=== PATIENT | male | born 1990 | race African-American/Black ===

== ENCOUNTER 2017-03-21 12:15 | Inpatient (IN) | payer MEDICARE, OTHER ==
[~2017-03-21] VITALS: Ht 165.1 cm; Wt 63.8 kg
[~2017-03-21 12:15] MED LIST: ARIP400I IM; DIVA500T3 PO; SERO300T PO
[2017-03-21 12:16] VITALS: BP 166/95; PULSE 102; RESP 20; TEMP 99.4; O2SAT 100
[2017-03-21 12:56] LABS: BASOPHIL % 0.6 % (0.0-2.0); EOSINOPHIL # 0.1 TH/MM3 (0-0.4); EOSINOPHIL % 1.9 % (0.0-4.0); HEMATOCRIT 39.4 % (39.0-51.0); HEMOGLOBIN 13.5 GM/DL (13.0-17.0); LYMPH % 27.7 % (9.0-44.0); LYMPHOCYTE # 1.8 TH/MM3 (1.0-4.8); MEAN CELL VOLUME 86.8 FL (80.0-100.0); MEAN CORPUSCULAR HEMOGLOBIN 29.8 PG (27.0-34.0); MEAN CORPUSCULAR HGB CONC 34.3 % (32.0-36.0); MEAN PLATELET VOLUME 6.9 FL (7.0-11.0); MONO % 8.1 % (0.0-8.0); MONOCYTE # 0.5 TH/MM3 (0-0.9); NEUT % 61.7 % (16.0-70.0); PLATELET COUNT 261 TH/MM3 (150-450); RED BLOOD COUNT 4.53 MIL/MM3 (4.50-5.90); RED CELL DISTRIBUTION WIDTH 13.5 % (11.6-17.2); WHITE BLOOD COUNT 6.5 TH/MM3 (4.0-11.0)
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
[2017-03-21 13:15] LABS: ALBUMIN 2.8 GM/DL (3.4-5.0); AST (GOT) 23 U/L (15-37); BICARBONATE 28.9 MEQ/L (21.0-32.0); BLOOD UREA NITROGEN 8 MG/DL (7-18); CHLORIDE 105 MEQ/L (98-107); CREATININE 0.92 MG/DL (0.60-1.30); GLOMERULAR FILTRATION RATE 119 ML/MIN (>89); GLUCOSE,RANDOM 88 MG/DL (74-106); SODIUM (NA) 140 MEQ/L (136-145)
[2017-03-21 13:16] LABS: ALT (GPT) 18 U/L (12-78)
[2017-03-21 13:19] LABS: ALKALINE PHOSPHATASE 80 U/L (45-117); TOTAL BILIRUBIN ADULT 0.2 MG/DL (0.2-1.0); TOTAL PROTEIN 7.4 GM/DL (6.4-8.2)
[2017-03-21 13:22] LABS: ACETAMINOPHEN LESS THAN 2.0 MCG/ML (10.0-30.0)
[2017-03-21] MEDS ORDERED: IBUPROFEN 800 MG TAB PO ONE (13:30)
[2017-03-21] MEDS ORDERED: AMOXICILLIN/CLAVULANATE K 500 MG TAB PO ONE (13:30)
[2017-03-21 14:43] VITALS: BP 156/96; PULSE 74; RESP 18; TEMP 99.1; O2SAT 100
[2017-03-21 18:46] VITALS: BP 142/83; PULSE 74; RESP 18; O2SAT 98
[2017-03-21 22:00] VITALS: BP 130/59; PULSE 68; RESP 18; O2SAT 98
[2017-03-22 09:54] VITALS: BP 141/82; PULSE 77; RESP 18; TEMP 98.9; O2SAT 97
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
[2017-03-22] MEDS ORDERED: IBUPROFEN 800 MG TAB PO ONE (10:30)
[2017-03-22] MEDS ORDERED: MAGNESIUM HYDROXIDE SUSP 30 ML CUP PO PRN (12:00)
[2017-03-22] MEDS ORDERED: ALUMINUM/MAGNESIUM/SIMETH 30 ML CUP PO PRN (12:00)
[2017-03-22 12:48] VITALS: BP 144/93; PULSE 80; RESP 16; TEMP 98.4; O2SAT 99
[2017-03-23 05:34] VITALS: BP 137/75; PULSE 79; RESP 19; TEMP 98.4; O2SAT 98
[2017-03-23] MEDS: ACETAMINOPHEN 325 MG TAB PO PRN ×2 (09:27→18:51)
[2017-03-23 10:41] LABS: BICARBONATE 27.4 MEQ/L (21.0-32.0); BLOOD UREA NITROGEN 10 MG/DL (7-18); CALCIUM 9.2 MG/DL (8.5-10.1); CHLORIDE 102 MEQ/L (98-107); CREATININE 1.03 MG/DL (0.60-1.30); GLOMERULAR FILTRATION RATE 104 ML/MIN (>89); GLUCOSE,RANDOM 120 MG/DL (74-106); SODIUM (NA) 136 MEQ/L (136-145)
[2017-03-23 10:42] LABS: CHOLESTEROL 141 MG/DL (120-200)
[2017-03-23 10:44] LABS: CHOLESTEROL/ HDL RATIO 3.56 RATIO; HDL CHOLESTEROL 39.5 MG/DL (40.0-60.0); LDL CHOLESTEROL 88 MG/DL (0-99); TRIGLYCERIDES 68 MG/DL (42-150)
[2017-03-23] MEDS ORDERED: DIVALPROEX SODIUM E.R. 500 MG TAB PO SCH (13:00)
[2017-03-23] MEDS ORDERED: ARIPIPRAZOLE 400 MG IM SCH (13:00)
[2017-03-23] MEDS: REMOVE OLD PATCH T-DERMAL SCH (13:00)
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
[2017-03-23] MEDS: DIVALPROEX SODIUM E.R. 500 MG TAB PO SCH ×2 (15:15→20:07)
[2017-03-23] MEDS: NICOTINE 21 MG/24 HR PATCH T-DERMAL SCH (15:15)
[2017-03-23 15:22] LABS: HEMOGLOBIN A1C 5.9 % (4.3-6.0)
[2017-03-23 17:43] VITALS: BP 139/76; PULSE 80; RESP 18; TEMP 98.7; O2SAT 96
[2017-03-23] MEDS: QUEtiapine FUMARATE 300 MG TAB PO SCH (20:07)
[2017-03-24 06:00] VITALS: BP 118/69; PULSE 67; RESP 17; TEMP 98.2; O2SAT 100
[2017-03-24] MEDS: NICOTINE 21 MG/24 HR PATCH T-DERMAL SCH (09:00)
[2017-03-24] MEDS: REMOVE OLD PATCH T-DERMAL SCH (09:00)
[2017-03-24] MEDS: DIVALPROEX SODIUM E.R. 500 MG TAB PO SCH ×2 (09:43→20:41)
--- NOTE | 2017-03-24 15:27 | HHI.PYPN ---
Subjective Chief Complaint: patient noncompliant medication, wandering streets Mental Status Examination Appearance: Appropriate Consciousness: Alert Orientation: x4 Motor Activity: Normal gait Speech: Slow, Other (low tone and somewhat childlike) Language: Adequate Fund of Knowledge: Adequate Attention and Concentration: Other (appears distracted) Memory: Unremarkable (poor) Mood: Other (euthymic) Affect: Other (good range of motion intensity) Thought Process & Associations: Linear Thought Content: Thought blocking Hallucination Type: Auditory (denies to me) Delusion Type: Other (suspicious) Suicidal Ideation: No Suicidal Plan: No Suicidal Intention: No Homicidal Ideation: No Homicidal Plan: No Homicidal Intention: No Insight: Poor Judgment: Poor Results Vitals/IOs Vital Signs Date Time Temp Pulse Resp B/P (MAP) Pulse Ox O2 Delivery O2 Flow Rate FiO2 03/24/17 06:00 98.2 67 17 118/69 (85) 100 03/22/17 09:54 Room Air Assessment & Plan Problem List: (1) Marijuana abuse ICD Codes: F12.10 - Cannabis abuse, uncomplicated (2) Paranoid schizophrenia ICD Codes: F20.0 - Paranoid schizophrenia Status: Acute Assessment & Plan Estimated LOS: days Request HC Surrog/Guard Advoc?: No Chai De Luna DO Mar 24, 2017 15:27
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
[2017-03-24 17:42] VITALS: BP 133/84; PULSE 85; RESP 16; TEMP 98.6; O2SAT 99
[2017-03-24] MEDS: QUEtiapine FUMARATE 300 MG TAB PO SCH (20:41)
[2017-03-25 05:33] VITALS: BP 117/71; PULSE 73; RESP 15; TEMP 98.2; O2SAT 99
[2017-03-25] MEDS: REMOVE OLD PATCH T-DERMAL SCH (09:00)
[2017-03-25] MEDS: NICOTINE 21 MG/24 HR PATCH T-DERMAL SCH (09:00)
[2017-03-25] MEDS: ACETAMINOPHEN 325 MG TAB PO PRN (09:27)
[2017-03-25] MEDS: DIVALPROEX SODIUM E.R. 500 MG TAB PO SCH ×2 (09:27→20:43)
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
[2017-03-25 16:52] VITALS: BP 139/71; PULSE 99; RESP 18; TEMP 98.7; O2SAT 98
[2017-03-25] MEDS: QUEtiapine FUMARATE 200 MG TAB PO SCH (20:43)
[2017-03-26 06:02] VITALS: BP 130/71; PULSE 64; RESP 18; TEMP 97.9; O2SAT 100
[2017-03-26] MEDS: NICOTINE 21 MG/24 HR PATCH T-DERMAL SCH (08:52)
[2017-03-26] MEDS: DIVALPROEX SODIUM E.R. 500 MG TAB PO SCH ×2 (08:52→21:48)
[2017-03-26] MEDS: REMOVE OLD PATCH T-DERMAL SCH (08:53)
--- NOTE | 2017-03-26 10:11 | PD.TTN ---
Patient Problems 1. Discharge planning 2. Medication compliance 3. Knowledge deficit 4. Lack of coping skills Progress Toward Goals Provider Present: Dr. Ese Agustin Provider Input: Dr. Agustin's treatment team met to discuss patient's treatment plan, medication and discharge plan. Patient doing well. Patient presents calm, pleasant. Possible discharge today. Nurse(s) Input: Patient's nurse Dora reports patient has been no behavioral problems on unit. Patient is medication compliant, seclusive to room. Presents internally stimulated. Psychiatric Counselors Present: Shelbie Pike [facility] Psych Therapist Input: Patient seen in his room. Patient presents childlike, seclusive, pleasant, calm, affect appropriate. Patient's speech was clear and organized. Patient once discharged will return home with his mother. Patient denies suicidal and homicial ideation. Patient did not present internally stimulated or with any delusional content. Patient reports eating and sleeping well. Group Spec/RT/OT/KEARNEY Present: CHRISTEL Escobedo Group Spec/RT/OT/KEARNEY Input: Patient is unknown to KEARNEY at this time. Shelbie Pike [facility] Mar 26, 2017 10:11
--- NOTE | 2017-03-26 10:11 | PD.TTN ---
Patient Problems 1. Discharge planning 2. Medication compliance 3. Knowledge deficit 4. Lack of coping skills Progress Toward Goals Provider Present: Dr. Ese Agustin Provider Input: Dr. Agustin's treatment team met to discuss patient's treatment plan, medication and discharge plan. Patient doing well. Patient presents calm, pleasant. Possible discharge today. Nurse(s) Input: Patient's nurse Dora reports patient has been no behavioral problems on unit. Patient is medication compliant, seclusive to room. Presents internally stimulated. Psychiatric Counselors Present: Shelbie Pike [facility] Psych Therapist Input: Patient seen in his room. Patient presents childlike, seclusive, pleasant, calm, affect appropriate. Patient's speech was clear and organized. Patient once discharged will return home with his mother. Patient denies suicidal and homicial ideation. Patient did not present internally stimulated or with any delusional content. Patient reports eating and sleeping well. Group Spec/RT/OT/KEARNEY Present: CHRISTEL Escobedo Group Spec/RT/OT/KEARNEY Input: Patient is unknown to KEARNEY at this time. Shelbie Pike [facility] Mar 26, 2017 10:11
--- NOTE | 2017-03-26 10:11 | PD.TTN ---
Patient Problems 1. Discharge planning 2. Medication compliance 3. Knowledge deficit 4. Lack of coping skills Progress Toward Goals Provider Present: Dr. Ese Agustin Provider Input: Dr. Agustin's treatment team met to discuss patient's treatment plan, medication and discharge plan. Patient doing well. Patient presents calm, pleasant. Possible discharge today. Nurse(s) Input: Patient's nurse Dora reports patient has been no behavioral problems on unit. Patient is medication compliant, seclusive to room. Presents internally stimulated. Psychiatric Counselors Present: Shelbie Pike [facility] Psych Therapist Input: Patient seen in his room. Patient presents childlike, seclusive, pleasant, calm, affect appropriate. Patient's speech was clear and organized. Patient once discharged will return home with his mother. Patient denies suicidal and homicial ideation. Patient did not present internally stimulated or with any delusional content. Patient reports eating and sleeping well. Group Spec/RT/OT/KEARNEY Present: CHRISTEL Escobedo Group Spec/RT/OT/KEARNEY Input: Patient is unknown to KEARNEY at this time. Shelbie Pike [facility] Mar 26, 2017 10:11
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
[2017-03-26 18:08] VITALS: BP 135/78; PULSE 73; RESP 18; TEMP 98.4; O2SAT 97
[2017-03-26] MEDS: QUEtiapine FUMARATE 200 MG TAB PO SCH (21:46)
[2017-03-27 06:12] VITALS: BP 133/85; PULSE 65; RESP 16; TEMP 97.6; O2SAT 98
[2017-03-27] MEDS: DIVALPROEX SODIUM E.R. 500 MG TAB PO SCH (08:48)
[2017-03-27] MEDS: NICOTINE 21 MG/24 HR PATCH T-DERMAL SCH (09:00)
[2017-03-27] MEDS: REMOVE OLD PATCH T-DERMAL SCH (09:00)
[2017-03-27] MEDS ORDERED: ARIPIPRAZOLE IM (12:10)
[2017-03-27] MEDS ORDERED: SERO400T PO (12:10)
[2017-03-27] MEDS ORDERED: DEPA500T3 PO (12:10)
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
== END 2017-03-27 15:25 | disposition home or self-care (01) | DRG 885 ==
LOC: NEPD 12:15 → NEDA 03-22 11:28 → H260 03-22 12:30
PROVIDERS: ADMIT Psychiatry & Neurology Psychiatry; ATTEND Psychiatry & Neurology Psychiatry
DX: F20.0 Paranoid schizophrenia (principal); K50.90 Crohn's disease, unspecified, without complications; F79 Unspecified intellectual disabilities; F17.210 Nicotine dependence, cigarettes, uncomplicated; F12.10 Cannabis abuse, uncomplicated; M06.9 Rheumatoid arthritis, unspecified; Z91.14 Patient's other noncompliance with medication regimen; R68.84 Jaw pain
CPT/HCPCS: 80048; 80053; 80061; 80164; 80307; 83036; 85025

== ENCOUNTER 2017-08-27 13:51 | Inpatient (IN) | payer OTHER, MEDICAID, MEDICARE ==
[~2017-08-27] VITALS: Ht 154.9 cm; Wt 67.6 kg
[~2017-08-27 13:51] MED LIST changes: -ARIP400I IM; +ARIPIPRAZOLE IM; +DEPA500T3 PO; -DIVA500T3 PO; -SERO300T PO; +SERO400T PO
[2017-08-27 13:58] VITALS: BP 131/67; PULSE 130; RESP 20; TEMP 99.3; O2SAT 99
[2017-08-27] MEDS ORDERED: APRI0.372 PO (15:08)
[2017-08-27] MEDS ORDERED: ADAL1INJ SQ (15:08)
[2017-08-27 15:43] VITALS: BP 118/68; PULSE 103; RESP 18; O2SAT 100
[2017-08-27 15:46] LABS: AUTOMATED NEUTROPHIL # 7.2 TH/MM3 (1.8-7.7); BASOPHIL % 0.3 % (0.0-2.0); EOSINOPHIL # 0.1 TH/MM3 (0-0.4); EOSINOPHIL % 1.3 % (0.0-4.0); HEMATOCRIT 42.5 % (39.0-51.0); HEMOGLOBIN 14.1 GM/DL (13.0-17.0); LYMPH % 18.5 % (9.0-44.0); LYMPHOCYTE # 1.9 TH/MM3 (1.0-4.8); MEAN CELL VOLUME 85.1 FL (80.0-100.0); MEAN CORPUSCULAR HEMOGLOBIN 28.2 PG (27.0-34.0); MEAN CORPUSCULAR HGB CONC 33.1 % (32.0-36.0); MEAN PLATELET VOLUME 7.3 FL (7.0-11.0); MONOCYTE # 0.9 TH/MM3 (0-0.9); NEUT % 70.9 % (16.0-70.0); PLATELET COUNT 255 TH/MM3 (150-450); RED CELL DISTRIBUTION WIDTH 13.8 % (11.6-17.2); WHITE BLOOD COUNT 10.2 TH/MM3 (4.0-11.0)
[2017-08-27 16:08] LABS: ALBUMIN 3.2 GM/DL (3.4-5.0); AST (GOT) 114 U/L (15-37); BICARBONATE 28.7 MEQ/L (21.0-32.0); BLOOD UREA NITROGEN 12 MG/DL (7-18); CALCIUM 8.8 MG/DL (8.5-10.1); CHLORIDE 105 MEQ/L (98-107); CREATININE 1.06 MG/DL (0.60-1.30); GLOMERULAR FILTRATION RATE 101 ML/MIN (>89); GLUCOSE,RANDOM 73 MG/DL (74-106); SODIUM (NA) 142 MEQ/L (136-145)
[2017-08-27 16:19] LABS: ALKALINE PHOSPHATASE 123 U/L (45-117); ALT (GPT) 67 U/L (12-78); TOTAL BILIRUBIN ADULT 0.5 MG/DL (0.2-1.0); TOTAL PROTEIN 8.4 GM/DL (6.4-8.2)
--- NOTE | 2017-08-27 16:48 | PD ---
HPI Chief Complaint: Psychiatric Symptoms Time Seen by Provider: 16:48 Travel History International Travel<30 days: No Contact w/Intl Traveler<30days: No Traveled to known affect area: No History of Present Illness HPI 27-year-old -Tuval[place] male with history of bipolar disorder and mildred is brought in by his mother for psychiatric evaluation. Mother reports that he has not been taking his evening meds, only his morning meds, and then walking all day. Patient returns to home in the morning to take his morning meds and shower. Patient's mother thinks he has not slept in 3 weeks. Patient's mother states she has not been making sense for 3 weeks. She feels he is manic and needs to be admitted psychiatrically. The patient is unable to answer questions. He is voluntary. He is cooperative to go to J pod he has no obvious medical issues. No known drug allergies. PFSH Past Medical History ADHD: No Arthritis: Yes (Rheumatoid Arthritis) Autoimmune Disease: Yes (per hx..RA) Blood Disorders: No Anxiety: Yes Depression: Yes Cancer: No Cardiovascular Problems: No Chemotherapy: No COPD: No Cerebrovascular Accident: No Diabetes: No Diminished Hearing: No Endocrine: No Gastrointestinal Disorders: Yes (Crohns) GERD: No Genitourinary: No Headaches: No Hiatal Hernia: No Immune Disorder: Yes Implanted Vascular Access Dvce: No Kidney Stones: No Musculoskeletal: No Neurologic: No Psychiatric: No Reproductive: No Respiratory: No Integumentary: Yes Immunizations Current: Yes Migraines: No Radiation Therapy: No Renal Failure: No Schizophrenia: Yes Seizures: No Sickle Cell Disease: No Sleep Apnea: No Thyroid Disease: No Ulcer: Yes PNEUMOCCOCAL Vaccine (Year): 3 Past Surgical History Abdominal Surgery: No Appendectomy: No Cardiac Surgery: No Cholecystectomy: No Ear Surgery: No Endocrine Surgery: No Eye Surgery: No Genitourinary Surgery: No Gynecologic Surgery: No Oral Surgery: No Thoracic Surgery: No Other Surgery: Yes Social History Alcohol Use: No Tobacco Use: Yes (<ppd) Allergies-Medications (Allergen,Severity, Reaction): Coded Allergies: No Known Allergies (Verified Adverse Reaction, Unknown, 08/27/17) Reported Meds & Prescriptions Reported Meds & Active Scripts Active [(NF) (Aripiprazole ER Inj (Abilify Maintena ER Inj))] 400 Mg IM Q28D Seroquel (Quetiapine Fumarate) 400 Mg Tab 400 Mg PO HS Depakote ER (Divalproex Sodium) 500 Mg Juwan 500 Mg PO BID Reported Apriso (Mesalamine) 0.375 Gm Caper 1.5 Gm PO DAILY Humira 2-Pack Inj (Adalimumab 2-Pack Inj) 10 Mg/0.2 Ml Syr 10 Mg SQ Q14D Review of Systems ROS Limitations: Clinical Condition, Psychotic Physical Exam Exam Limitations: Clinical Condition, Psychotic Narrative GENERAL: Patient appears very tired on my exam. He is arousable but does not answer questions per SKIN: Warm and dry. Normal color. Normal turgor. No obvious signs of trauma. HEAD: Atraumatic. Normocephalic. EYES: Pupils equal and round. No scleral icterus. No injection or drainage. ENT: No nasal bleeding or discharge. Mucous membranes pink and moist. NECK: Trachea midline. Supple. CARDIOVASCULAR: Regular rate and rhythm. RESPIRATORY: No accessory muscle use. Clear to auscultation. Breath sounds equal bilaterally. GASTROINTESTINAL: Abdomen soft, non-tender, nondistended. Hepatic and splenic margins not palpable. MUSCULOSKELETAL: Extremities without clubbing, cyanosis, or edema. No obvious deformities. NEUROLOGICAL: Awake and alert. No obvious cranial nerve deficits. Motor grossly within normal limits. Five out of 5 muscle strength in the arms and legs. Normal speech. PSYCHIATRIC: Unable to determine Data Data Last Documented VS Vital Signs Date Time Temp Pulse Resp B/P (MAP) Pulse Ox O2 Delivery O2 Flow Rate FiO2 08/27/17 15:43 103 18 118/68 (85) 100 Room Air 08/27/17 13:58 99.3 Orders Orders Complete Blood Count With Diff (08/27/17 14:01) Comprehensive Metabolic Panel (08/27/17 14:01) Thyroid Stimulating Hormone (08/27/17 14:01) Psych Screen (08/27/17 14:01) Drug Screen, Random Urine (08/27/17 14:01) Alcohol (Ethanol) (08/27/17 14:01) Diet Regular Basic (08/27/17 Dinner) Labs Laboratory Tests Test 08/27/17 15:00 White Blood Count 10.2 TH/MM3 Red Blood Count 5.00 MIL/MM3 Hemoglobin 14.1 GM/DL Hematocrit 42.5 % Mean Corpuscular Volume 85.1 FL Mean Corpuscular Hemoglobin 28.2 PG Mean Corpuscular Hemoglobin Concent 33.1 % Red Cell Distribution Width 13.8 % Platelet Count 255 TH/MM3 Mean Platelet Volume 7.3 FL Neutrophils (%) (Auto) 70.9 % Lymphocytes (%) (Auto) 18.5 % Monocytes (%) (Auto) 9.0 % Eosinophils (%) (Auto) 1.3 % Basophils (%) (Auto) 0.3 % Neutrophils # (Auto) 7.2 TH/MM3 Lymphocytes # (Auto) 1.9 TH/MM3 Monocytes # (Auto) 0.9 TH/MM3 Eosinophils # (Auto) 0.1 TH/MM3 Basophils # (Auto) 0.0 TH/MM3 CBC Comment DIFF FINAL Differential Comment Blood Urea Nitrogen 12 MG/DL Creatinine 1.06 MG/DL Random Glucose 73 MG/DL Total Protein 8.4 GM/DL Albumin 3.2 GM/DL Calcium Level 8.8 MG/DL Alkaline Phosphatase 123 U/L Aspartate Amino Transf (AST/SGOT) 114 U/L Alanine Aminotransferase (ALT/SGPT) 67 U/L Total Bilirubin 0.5 MG/DL Sodium Level 142 MEQ/L Potassium Level 3.1 MEQ/L Chloride Level 105 MEQ/L Carbon Dioxide Level 28.7 MEQ/L Anion Gap 8 MEQ/L Estimat Glomerular Filtration Rate 101 ML/MIN Thyroid Stimulating Hormone 3rd Gen 1.870 uIU/ML Ethyl Alcohol Level LESS THAN 3 MG/DL MDM Medical Decision Making Medical Screen Exam Complete: Yes Emergency Medical Condition: Yes Differential Diagnosis Psychosis. Mildred. Need for Stewart act Narrative Course Stewart act is filled out and discussed with Dr. Espinosa. Psychiatric labs ordered per protocol. Patient will be medically cleared for psychiatric evaluation. Patient Instructions: General Instructions Condition: Stable Farshad Ferrari Aug 27, 2017 16:48
--- NOTE | 2017-08-27 18:02 | PD ---
Data Data Last Documented VS Vital Signs Date Time Temp Pulse Resp B/P (MAP) Pulse Ox O2 Delivery O2 Flow Rate FiO2 08/27/17 18:50 100 20 126/70 (88) 98 Room Air 08/27/17 13:58 99.3 Orders Orders Complete Blood Count With Diff (08/27/17 14:01) Comprehensive Metabolic Panel (08/27/17 14:01) Thyroid Stimulating Hormone (08/27/17 14:01) Psych Screen (08/27/17 14:01) Drug Screen, Random Urine (08/27/17 14:01) Alcohol (Ethanol) (08/27/17 14:01) Diet Regular Basic (08/27/17 Dinner) Nystatin Cream (Mycostatin Cream) (08/27/17 21:00) Potassium Chloride (Kcl) (08/27/17 18:30) Admit Order (Ed Use Only) (08/27/17 ) Admit To Inpatient Psych (08/27/17 ) Code Status (08/27/17 19:01) Vital Signs (Adult) TONEY.Q12H.E (08/27/17 19:01) Activity Oob Ad Theresa (08/27/17 19:01) Level Of Observation (Psych) (08/27/17 19:01) Acetaminophen (Tylenol) (08/27/17 19:15) Magnesium Hydroxide Liq (Milk Of Magnesi (08/27/17 19:15) Al-Mag Hy-Si 40-40-4 Mg/Ml Liq (Mag-Al P (08/27/17 19:15) Nicotine 21 Mg Patch.24 Hr (Habitrol 21 (08/27/17 19:15) Basic Metabolic Panel (Bmp) (08/28/17 06:00) Lipid Profile (08/28/17 06:00) Hemoglobin (Hgb) A1c (08/28/17 06:00) Remove Old Patch (08/28/17 09:00) Labs Laboratory Tests Test 08/27/17 15:00 White Blood Count 10.2 TH/MM3 Red Blood Count 5.00 MIL/MM3 Hemoglobin 14.1 GM/DL Hematocrit 42.5 % Mean Corpuscular Volume 85.1 FL Mean Corpuscular Hemoglobin 28.2 PG Mean Corpuscular Hemoglobin Concent 33.1 % Red Cell Distribution Width 13.8 % Platelet Count 255 TH/MM3 Mean Platelet Volume 7.3 FL Neutrophils (%) (Auto) 70.9 % Lymphocytes (%) (Auto) 18.5 % Monocytes (%) (Auto) 9.0 % Eosinophils (%) (Auto) 1.3 % Basophils (%) (Auto) 0.3 % Neutrophils # (Auto) 7.2 TH/MM3 Lymphocytes # (Auto) 1.9 TH/MM3 Monocytes # (Auto) 0.9 TH/MM3 Eosinophils # (Auto) 0.1 TH/MM3 Basophils # (Auto) 0.0 TH/MM3 CBC Comment DIFF FINAL Differential Comment Blood Urea Nitrogen 12 MG/DL Creatinine 1.06 MG/DL Random Glucose 73 MG/DL Total Protein 8.4 GM/DL Albumin 3.2 GM/DL Calcium Level 8.8 MG/DL Alkaline Phosphatase 123 U/L Aspartate Amino Transf (AST/SGOT) 114 U/L Alanine Aminotransferase (ALT/SGPT) 67 U/L Total Bilirubin 0.5 MG/DL Sodium Level 142 MEQ/L Potassium Level 3.1 MEQ/L Chloride Level 105 MEQ/L Carbon Dioxide Level 28.7 MEQ/L Anion Gap 8 MEQ/L Estimat Glomerular Filtration Rate 101 ML/MIN Thyroid Stimulating Hormone 3rd Gen 1.870 uIU/ML Ethyl Alcohol Level LESS THAN 3 MG/DL MDM Supervised Visit with [facility]: Yes Narrative Course Patient seen and examined by me, patient's only complaint to me is that he has a "hole down there which is leaking some fluid". Patient examined and does have a small rash on the medial aspect of both of his thighs consistent with a continual infection, however does not have significant cellulitis, inconsistent with herpes, inconsistent with syphilis. No discharge from the penis, scrotum and testes normal. Psychiatric exam however is quite bizarre tangential thought process, he has very little insight into why he is here. Denies suicidal or homicidal ideation , for instance it appeared as though he was interacting with unseen stimuli in the room. I do not think that he is in his proper faculty to make a decision to sign in or leave the hospital. I therefore placed him under a Stewart act secondary to his history of psychosis. He is medically cleared for psychiatric evaluation and disposition but he should have nystatin cream twice daily applied to his rash for the next 14 days per Patient Instructions: General Instructions Condition: Stable Dao Espinosa MD Aug 27, 2017 18:02
[2017-08-27] MEDS ORDERED: POTASSIUM CHLORIDE 20 MEQ CONTROLLED RELEASE TAB PO ONE (18:30)
[2017-08-27 18:50] VITALS: BP 126/70; PULSE 100; RESP 20; O2SAT 98
--- NOTE | 2017-08-27 19:01 | PD ---
History of Present Illness Chief Complaint: Schizophrenia Time Seen by Provider: 18:45 Travel History International Travel<30 Days: No Contact w/Intl Traveler<30days: No Known affected area: No Legal Status Legal Status: Stewart Act Stewart Act Signed By: Dr. Espinosa History of Present Illness: This is a 27-year-old, single, -Micron[place] male who presents to the ED voluntarily with his mother. Patient is known to this facility and has a long history of admissions for schizophrenia. Per patient's mother, he has "not slept for 3 weeks and is not making sense when he talks". She reports that he has been working nonstop for 3 weeks comes home in the morning takes his medications in the shower then starts walking again however, he has not been sleeping at night nor has he been taking his evening medications. Reviewed electronic medical records, labs, and discussed case with staff. Patient sleeping in his room and J pod at this time. Patient wakes to physical stimulus. He is lethargic, and oriented to self and place only. His speech is garbled, disorganized, and at times illogical. He has bilaterally injected sclera. He attempts to participate in the evaluation however, most of his answers are mumbled "yes ma'ams or no ma'ams". He denies having suicidal ideation, homicidal ideation, visual or auditory hallucinations. Does not appear to be delusional at this time. [facility] Past Medical History ADHD: No Arthritis: Yes (Rheumatoid Arthritis) Autoimmune Disease: Yes (per hx..RA) Blood Disorders: No Anxiety: Yes Depression: Yes Cancer: No Cardiovascular Problems: No Chemotherapy: No COPD: No Cerebrovascular Accident: No Diabetes: No Diminished Hearing: No Endocrine: No Gastrointestinal Disorders: Yes (Crohns) GERD: No Genitourinary: No Headaches: No Hiatal Hernia: No Immune Disorder: Yes Implanted Vascular Access Dvce: No Kidney Stones: No Musculoskeletal: No Neurologic: No Psychiatric: No Reproductive: No Respiratory: No Integumentary: Yes Immunizations Current: Yes Migraines: No Radiation Therapy: No Renal Failure: No Schizophrenia: Yes Seizures: No Sickle Cell Disease: No Sleep Apnea: No Thyroid Disease: No Ulcer: Yes PNEUMOCCOCAL Vaccine (Year): 3 Past Surgical History Abdominal Surgery: No Appendectomy: No Cardiac Surgery: No Cholecystectomy: No Ear Surgery: No Endocrine Surgery: No Eye Surgery: No Genitourinary Surgery: No Gynecologic Surgery: No Oral Surgery: No Thoracic Surgery: No Other Surgery: Yes Psychiatric History Psychiatric History Multiple inpatient admissions at this facility. Diagnosis of schizophrenia. Hx Psychiatric Treatment: MOTHER REPORTS HX OF SCHIZOPHRENIA. PT HAS LONG HISTORY AT [facility] AND IS FOLLOWED BY DR CHUNG History of Inpatient Treatment: Yes Social History Hx Alcohol Use: No Hx Tobacco Use: Yes (<ppd) Substance Use Type: Marijuana Other Substances Used: BLACK AND MILDS Hx of Substance Use Treatment: No Allergies-Medications (Allergen,Severity, Reaction): Coded Allergies: No Known Allergies (Verified Adverse Reaction, Unknown, 08/27/17) Reported Meds & Prescriptions Reported Meds & Active Scripts Active [(NF) (Aripiprazole ER Inj (Abilify Maintena ER Inj))] 400 Mg IM Q28D Seroquel (Quetiapine Fumarate) 400 Mg Tab 400 Mg PO HS Depakote ER (Divalproex Sodium) 500 Mg Juwan 500 Mg PO BID Reported Apriso (Mesalamine) 0.375 Gm Caper 1.5 Gm PO DAILY Humira 2-Pack Inj (Adalimumab 2-Pack Inj) 10 Mg/0.2 Ml Syr 10 Mg SQ Q14D Mental Status Examination Appearance: Disheveled Consciousness: Lethargic Orientation: Person, Place Motor Activity: Other (Lying on the bed) Speech: Incoherent (At times), Other (Garbled but some is clear) Language: Neologism Fund of Knowledge: Poor Attention and Concentration: Easily Distracted Memory: Impaired Mood: Appropriate Affect: Flat Thought Process & Associations: Disorganized Thought Content: Other (Unable to assess due to disorganization) Hallucination Type: None (Denies) Delusion Type: None Suicidal Ideation: No Suicidal Plan: No Suicidal Intention: No Homicidal Ideation: No Homicidal Plan: No Homicidal Intention: No Insight: Poor Judgment: Poor MDM Medical Decision Making Medical Record Reviewed: Yes Assessment/Plan This is a 27-year-old, single, male who is brought voluntarily to this facility by his mother due to not sleeping for 3 weeks and acting bizarre. Patient has an extensive history at this facility with a diagnosis of schizophrenia. His mother reports that he has been taking his morning medications however he has been missing his evening medications. He also has not been sleeping and has been walking nonstop throughout the evening for the past 3 weeks. Patient speech and thought processes are clearly disorganized and at this time he makes a poor historian. Patient likely present an eminent danger to himself if discharged, and for that reason a Stewart act was placed upon him by Dr. Espinosa. Patient will be admitted for further evaluation and treatment. Request HC Surrog/Guard Advoc?: Yes Orders Orders Complete Blood Count With Diff (08/27/17 14:01) Comprehensive Metabolic Panel (08/27/17 14:01) Thyroid Stimulating Hormone (08/27/17 14:01) Psych Screen (08/27/17 14:01) Drug Screen, Random Urine (08/27/17 14:01) Alcohol (Ethanol) (08/27/17 14:01) Diet Regular Basic (08/27/17 Dinner) Nystatin Cream (Mycostatin Cream) (08/27/17 21:00) Potassium Chloride (Kcl) (08/27/17 18:30) Results Vital Signs Date Time Temp Pulse Resp B/P (MAP) Pulse Ox O2 Delivery O2 Flow Rate FiO2 08/27/17 15:43 103 18 118/68 (85) 100 Room Air 08/27/17 13:58 99.3 130 20 131/67 (88) 99 Laboratory Tests Test 08/27/17 15:00 White Blood Count 10.2 Red Blood Count 5.00 Hemoglobin 14.1 Hematocrit 42.5 Mean Corpuscular Volume 85.1 Mean Corpuscular Hemoglobin 28.2 Mean Corpuscular Hemoglobin Concent 33.1 Red Cell Distribution Width 13.8 Platelet Count 255 Mean Platelet Volume 7.3 Neutrophils (%) (Auto) 70.9 Lymphocytes (%) (Auto) 18.5 Monocytes (%) (Auto) 9.0 Eosinophils (%) (Auto) 1.3 Basophils (%) (Auto) 0.3 Neutrophils # (Auto) 7.2 Lymphocytes # (Auto) 1.9 Monocytes # (Auto) 0.9 Eosinophils # (Auto) 0.1 Basophils # (Auto) 0.0 CBC Comment DIFF FINAL Differential Comment Blood Urea Nitrogen 12 Creatinine 1.06 Random Glucose 73 Total Protein 8.4 Albumin 3.2 Calcium Level 8.8 Alkaline Phosphatase 123 Aspartate Amino Transf (AST/SGOT) 114 Alanine Aminotransferase (ALT/SGPT) 67 Total Bilirubin 0.5 Sodium Level 142 Potassium Level 3.1 Chloride Level 105 Carbon Dioxide Level 28.7 Anion Gap 8 Estimat Glomerular Filtration Rate 101 Thyroid Stimulating Hormone 3rd Gen 1.870 Ethyl Alcohol Level LESS THAN 3 Diagnosis Primary Impression: Schizophrenia Admitting Information Admitting Physician Requests: Admit Patient Instructions: General Instructions Condition: Stable Kanchan Medrano Aug 27, 2017 19:01
[2017-08-27] MEDS ORDERED: ACETAMINOPHEN 325 MG TAB PO PRN (19:15)
[2017-08-27] MEDS: NICOTINE 21 MG/24 HR PATCH T-DERMAL SCH (19:15)
[2017-08-27] MEDS ORDERED: ALUMINUM/MAGNESIUM/SIMETH 30 ML CUP PO PRN (19:15)
[2017-08-27] MEDS ORDERED: MAGNESIUM HYDROXIDE SUSP 30 ML CUP PO PRN (19:15)
[2017-08-27 20:35] VITALS: BP 138/90; PULSE 98; RESP 18; TEMP 98.1; O2SAT 96
[2017-08-27] MEDS: NYSTATIN 100,000 UNIT/GM CREAM 15 GM TOPICAL SCH (21:00)
[2017-08-28 06:22] VITALS: BP 141/83; PULSE 83; RESP 18; TEMP 97.3; O2SAT 97
[2017-08-28] MEDS: NICOTINE 21 MG/24 HR PATCH T-DERMAL SCH (09:00)
[2017-08-28] MEDS: REMOVE OLD PATCH T-DERMAL SCH (09:00)
[2017-08-28] MEDS: NYSTATIN 100,000 UNIT/GM CREAM 15 GM TOPICAL SCH ×2 (09:00→21:00)
[2017-08-28 09:02] LABS: BICARBONATE 25.3 MEQ/L (21.0-32.0); BLOOD UREA NITROGEN 11 MG/DL (7-18); CALCIUM 8.6 MG/DL (8.5-10.1); CHLORIDE 106 MEQ/L (98-107); CREATININE 1.05 MG/DL (0.60-1.30); GLOMERULAR FILTRATION RATE 102 ML/MIN (>89); GLUCOSE,RANDOM 72 MG/DL (74-106); SODIUM (NA) 140 MEQ/L (136-145)
[2017-08-28 09:09] LABS: CHOLESTEROL 114 MG/DL (120-200); CHOLESTEROL/ HDL RATIO 2.84 RATIO; HDL CHOLESTEROL 40.1 MG/DL (40.0-60.0); LDL CHOLESTEROL 65 MG/DL (0-99); TRIGLYCERIDES 45 MG/DL (42-150)
--- NOTE | 2017-08-28 09:28 | HHI.HP ---
Provisional Diagnosis Admission Date Aug 27, 2017 at 19:04 [place] I. 1. Schizophrenia, undifferentiated type [place] II. 1. Intellectual disability, severity unclear. Certification of Person's Competence To Provide Express and Informed Consent I have personally examined Padma Pressley , a person being served at [facility] on, Aug 28, 2017 09:28. Express and informed consent means consent voluntarily given in writing, by a competent person, after sufficient explanation and disclosure of the subject matter involved to enable the person to make a knowing and willful decision without any element of force, fraud, deceit, duress, or other form of constraint or coercion. This person is 18 years of age or older, is not now known to be incompetent to consent to treatment with a guardian advocate, and does not have a health care surrogate or proxy currently making medical treatment decisions. I have found this person to be one of the following: [] Competent to provide express and informed consent, as defined above, for voluntary admission to this facility and is competent to provide express and informed consent for treatment. He/she has the consistent capacity to make well reasoned, willful, and knowing decisions concerning his or her medical or mental health treatment. The person fully and consistently understands the purpose of the admission for examination/placement and is fully capable of personally exercising all rights assured [place] [x] Incompetent to provide express and informed consent to voluntary admission, and this is incompetent to provide express and informed consent to treatment. The person must be transferred to involuntary status and a petition for a guardian advocate filed with the Circuit Court. [] Refusing to provide express and informed consent to voluntary admission but is competent to provide express and informed consent for treatment. The person must be discharged or transferred to involuntary status. Form shall be completed within 24 hours of a person's arrival at the receiving facility and filed in the clinical record of each person: 1. Admitted on a voluntary basis 2. Permitted to provide express and informed consent to his/her own treatment 3. Allowed to transfer from involuntary to voluntary status 4. Prior to permitting a person to consent to his or her own treatment after having been previously found incompetent to consent to treatment. History of Present Illness Capacity: Lacks Capacity Psych Chief Complaint: Psychosis HPI Mr. Pressley is 27-year-old male with a chart history of schizophrenia and intellectual disability who presented voluntarily, brought in by mother for psychiatric evaluation. According to the ED provider notes, mother reported " that he has not been taking his evening meds, only his morning meds, and then walking all day. Patient returns to home in the morning to take his morning meds and shower. Patient's mother thinks he has not slept in 3 weeks. Patient' s mother states she has not been making sense for 3 weeks." Patient was placed under the Stewart act by the ED provider. Patient was seen by the psychiatric nurse practitioner in the ED. Reviewing the electronic medical record, I note that the patient was admitted to the inpatient unit most recently under Dr. Agustin in February 2017, and it appears that the patient has followed on an outpatient basis with Dr. Andujar with the last clinic note I see being from May,, at which time patient was on Abilify Maintena, Seroquel at bedtime and Depakote twice a day. Patient seen and examined. Chart reviewed. Case discussed with nursing staff. Patient noted to be polite and no particular behavioral problem. Case discussed with counselor. On my examination today, the patient presents as fairly childlike with silly affect. He does appears somewhat internally stimulated although he denies AVH. Grooming and hygiene seem at least fair. He seems to have some poverty of thought and answers many questions with a repetitive "yes sir, yes sir" or "no sir, no sir." Mood is "good," sleep is "good," appetite is "good." He denies any suicidal or homicidal ideation. I can elicit no paranoia, no thought insertion or withdrawal, no ideas of reference. Remainder of the psychiatric ROS is negative. Patient complains of some mild jaw stiffness but has no overt signs of dystonia or other motor abnormality or deformity involving the jaw and seems to be using it freely and without obvious discomfort. He has no acute physical complaints. Past psychiatric history: Patient is likely an unreliable historian. He reports that he has a history of schizophrenia and follows with Dr. Andujar. He reports that he was last seen in the clinic in July of this year, although I see no note from that encounter, and he says that he received his long-acting injectable Abilify at that time. His most recent psychiatric admission was here at [place]. He denies a history of suicide attempts or violent behavior. Family history: The patient denies a family history of mental illness or suicide. Chemical dependency history: The patient denies any abuse of drugs or alcohol. Social history: The patient lives with his mother and mother's boyfriend. He is single with no children. He is high school educated and presently on SSI. He denies any or legal history. He denies any access to guns or firearms. He does endorse some anabaptism beliefs. He is noncommittal when I ask about a history of trauma but does not articulate any PTSD symptoms at this time. I did endeavor on two separate occasions to reach out to patient's mother at the number listed in the EMR. This number rings and then disconnects with no opportunity to leave a voicemail. Review of Systems ROS Limitations: Poor Historian Except as stated in HPI: all other systems reviewed are Neg Past Family Social History Coded Allergies: No Known Allergies (Verified Adverse Reaction, Unknown, 08/27/17) Past Medical History Patient denies any past medical history Active Scripts [(NF) (Aripiprazole ER Inj (Abilify Maintena ER Inj))] No Conflict Check, 400 MG IM Q28D, #1 10 Refills Prov:Rosendo Andujar MD 06/15/17 Quetiapine (Seroquel) 400 Mg Tab, 400 MG PO HS for health, #30 TAB 5 Refills Prov:Rosendo Andujar MD 04/13/17 Divalproex ER (Depakote ER) 500 Mg Juwan, 500 MG PO BID for health, #60 TAB 0 Refills Prov:Pro Agustin MD 03/27/17 Reported Medications Mesalamine ER 24 HR (Apriso) 0.375 Gm Caper, 1.5 GM PO DAILY for Ulcerative colitis, CAP 0 Refills 08/27/17 Adalimumab 2-Pack Inj (Humira 2-Pack Inj) 10 Mg/0.2 Ml Syr, 10 MG SQ Q14D, #1 KIT 0 Refills 08/27/17 Current Medications Medications (Trade) Dose Ordered Sig/Jaz Route Start Time Stop Time Status Last Admin (Mycostatin Cream) 1 applic Q12HR TOPICAL 08/27/17 21:00 (Tylenol) 650 mg Q4H PRN PO 4/2/18 19:15 (Milk Of Magnesia Liq) 30 ml DAILY PRN PO 08/27/17 19:15 (Mag-Al Plus Susp Liq) 30 ml Q6H PRN PO 08/27/17 19:15 (Habitrol 21 Mg Patch.24 Hr) 1 patch DAILY T-DERMAL 08/27/17 19:15 Miscellaneous Information 1 DAILY T-DERMAL 08/28/17 09:00 (Flu (Quadrivalent) Vaccine Inj) 0.5 ml ONCE ONCE IM 08/28/17 10:00 08/28/17 10:01 Patient's Strengths (min. 2) In a monitored setting. Verbally fluent. Physical Exam Physical examination completed by ED provider. On my examination today, the patient appears to be in no acute physical distress. No motor abnormalities noted. No tremor, no dystonia, no dyskinesia. Labs and vitals reviewed: Vital Signs Vital Signs Date Time Temp Pulse Resp B/P (MAP) Pulse Ox O2 Delivery O2 Flow Rate FiO2 08/28/17 06:22 97.3 83 18 141/83 (102) 97 08/27/17 18:50 Room Air Lab Results Item Value Date Time White Blood Count 10.2 TH/MM3 08/27/17 1500 Hemoglobin 14.1 GM/DL 08/27/17 1500 Platelet Count 255 TH/MM3 08/27/17 1500 Sodium Level 140 MEQ/L 08/28/17 0730 Potassium Level 3.3 MEQ/L L 08/28/17 0730 Chloride Level 106 MEQ/L 08/28/17 0730 Carbon Dioxide Level 25.3 MEQ/L 08/28/17 0730 Blood Urea Nitrogen 11 MG/DL 08/28/17 0730 Creatinine 1.05 MG/DL 08/28/17 0730 Estimat Glomerular Filtration Rate 102 ML/MIN 08/28/17 0730 Random Glucose 72 MG/DL L 08/28/17 0730 Aspartate Amino Transf (AST/SGOT) 114 U/L H 08/27/17 1500 Alanine Aminotransferase (ALT/SGPT) 67 U/L 08/27/17 1500 Alkaline Phosphatase 123 U/L H 08/27/17 1500 Thyroid Stimulating Hormone 3rd Gen 1.870 uIU/ML 08/27/17 1500 Valproic Acid (Depakene) Level 37 MCG/ML L 08/28/17 0730 Ethyl Alcohol Level LESS THAN 3 MG/DL 08/27/17 1500 Labs reviewed. Ongoing hypokalemia noted. Depakote level subtherapeutic. Mental Status Examination Appearance: Appropriate Consciousness: Alert Orientation: Person, Place (At least) Motor Activity: Other (No motor abnormalities noted) Speech: Unremarkable Language: Perseveration Fund of Knowledge: Inadequate Attention and Concentration: Easily Distracted Memory: Unremarkable Mood: Other ("Good") Affect: Euthymic (Childlike) Thought Process & Associations: Linear Thought Content: Other (Poverty of thought) Hallucination Type: Other (Denies AVH but appears somewhat internally stimulated) Delusion Type: None Suicidal Ideation: No Suicidal Plan: No Suicidal Intention: No Homicidal Ideation: No Homicidal Plan: No Homicidal Intention: No Insight: Poor Judgment: Poor Assessment & Plan Problem List: (1) Schizophrenia ICD Codes: F20.9 - Schizophrenia, unspecified Status: Acute (2) Intellectual disability ICD Codes: F79 - Unspecified intellectual disabilities Assessment & Plan 27-year-old male with psychiatric history as detailed above who is presently admitted to the inpatient psychiatric unit under a Stewart act. On my examination today, the patient exhibits some internal preoccupation and has a silly, childlike affect. Collateral obtained in the ED from patient's mother suggests patient is not at his baseline. I will admit the patient to the inpatient psychiatric unit for observation and stabilization. Admit inpatient. Involuntary status. I have completed first opinion. Consult for second opinion. Request healthcare surrogate and guardian advocate. I have not had success in reaching patient's mother and so psychotropics are on hold pending consent by a healthcare surrogate. I will replete potassium and recheck a potassium and magnesium level along with a set of LFTs in the morning. Also check a CK as patient is reported to have been walking around a good deal. Continue nystatin cream as ordered in the ED. Vitals every shift. Counselor to see and obtain collateral. Disposition planning. Estimated length of stay: 7-9 days. Discharge Planning Pending psychiatric stabilization Request HC Surrog/Guard Advoc?: Yes Problem Qualifiers (1) Schizophrenia: Qualified Codes: F20.3 - Undifferentiated schizophrenia Shine Pulido MD Aug 28, 2017 09:28
[2017-08-28] MEDS ORDERED: INFLUENZA VIRUS VACCINE (QUADRIVALENT) 0.5 ML SYR IM ONE (10:00)
[2017-08-28] MEDS ORDERED: POTASSIUM CHLORIDE 10 MEQ CONTROLLED RELEASE TAB PO ONE (11:30)
--- NOTE | 2017-08-28 13:50 | PD.PSY.CON ---
Provisional Diagnosis Admission Date Aug 27, 2017 at 19:04 [place] I. 1. Schizophrenia, undifferentiated type [place] II. 1. Intellectual disability, severity unclear. History of Present Illness Service Psychiatry Consult Requested By Psychiatry Reason for Consult Second opinion Primary Care Physician Damaso Sanches, DO HPI Mr. Pressley is 27-year-old male with a chart history of schizophrenia and intellectual disability who presented voluntarily, brought in by mother for psychiatric evaluation. According to the ED provider notes, mother reported "that he has not been taking his evening meds, only his morning meds, and then walking all day. Patient returns to home in the morning to take his morning meds and shower. Patient's mother thinks he has not slept in 3 weeks. Patient' s mother states she has not been making sense for 3 weeks." Patient was placed under the Stewart act by the ED provider. Patient was seen by the psychiatric nurse practitioner in the ED. Reviewing the electronic medical record, I note that the patient was admitted to the inpatient unit most recently under Dr. Agustin in February 2017, and it appears that the patient has followed on an outpatient basis with Dr. Andujar with the last clinic note I see being from May,, at which time patient was on Abilify Maintena, Seroquel at bedtime and Depakote twice a day.Patient seen and examined. Chart reviewed. Case discussed with nursing staff. Patient noted to be polite and no particular behavioral problem. Case discussed with counselor. On my examination today, the patient presents as fairly childlike with silly affect. He does appears somewhat internally stimulated although he denies AVH. Grooming and hygiene seem at least fair. He seems to have some poverty of thought and answers many questions with a repetitive "yes sir, yes sir" or "no sir, no sir." Mood is "good," sleep is "good," appetite is "good." He denies any suicidal or homicidal ideation. I can elicit no paranoia, no thought insertion or withdrawal, no ideas of reference. Remainder of the psychiatric ROS is negative. Patient complains of some mild jaw stiffness but has no overt signs of dystonia or other motor abnormality or deformity involving the jaw and seems to be using it freely and without obvious discomfort. He has no acute physical complaints. Review of Systems Except as stated in HPI: all other systems reviewed are Neg Past Family Social History Coded Allergies: No Known Allergies (Verified Adverse Reaction, Unknown, 08/27/17) Active Scripts [(NF) (Aripiprazole ER Inj (Abilify Maintena ER Inj))] No Conflict Check, 400 MG IM Q28D, #1 10 Refills Prov:Rosendo Andujar MD 06/15/17 Quetiapine (Seroquel) 400 Mg Tab, 400 MG PO HS for health, #30 TAB 5 Refills Prov:Rosendo Andujar MD 04/13/17 Divalproex ER (Depakote ER) 500 Mg Juwan, 500 MG PO BID for health, #60 TAB 0 Refills Prov:Pro Agustin MD 03/27/17 Reported Medications Mesalamine ER 24 HR (Apriso) 0.375 Gm Caper, 1.5 GM PO DAILY for Ulcerative colitis, CAP 0 Refills 08/27/17 Adalimumab 2-Pack Inj (Humira 2-Pack Inj) 10 Mg/0.2 Ml Syr, 10 MG SQ Q14D, #1 KIT 0 Refills 08/27/17 Current Medications Medications (Trade) Dose Ordered Sig/Jaz Route Start Time Stop Time Status Last Admin (Mycostatin Cream) 1 applic Q12HR TOPICAL 08/27/17 21:00 (Tylenol) 650 mg Q4H PRN PO 08/27/17 19:15 (Milk Of Magnesia Liq) 30 ml DAILY PRN PO 08/27/17 19:15 (Mag-Al Plus Susp Liq) 30 ml Q6H PRN PO 08/27/17 19:15 (Habitrol 21 Mg Patch.24 Hr) 1 patch DAILY T-DERMAL 08/27/17 19:15 Miscellaneous Information 1 DAILY T-DERMAL 08/28/17 09:00 Patient's Strengths (min. 2) In a monitored setting. Verbally fluent. Physical Exam Vital Signs Vital Signs Date Time Temp Pulse Resp B/P (MAP) Pulse Ox O2 Delivery O2 Flow Rate FiO2 08/28/17 06:22 97.3 83 18 141/83 (102) 97 08/27/17 18:50 Room Air Lab Results Test 08/27/17 15:00 08/28/17 07:30 White Blood Count 10.2 TH/MM3 Red Blood Count 5.00 MIL/MM3 Hemoglobin 14.1 GM/DL Hematocrit 42.5 % Mean Corpuscular Volume 85.1 FL Mean Corpuscular Hemoglobin 28.2 PG Mean Corpuscular Hemoglobin Concent 33.1 % Red Cell Distribution Width 13.8 % Platelet Count 255 TH/MM3 Mean Platelet Volume 7.3 FL Neutrophils (%) (Auto) 70.9 % Lymphocytes (%) (Auto) 18.5 % Monocytes (%) (Auto) 9.0 % Eosinophils (%) (Auto) 1.3 % Basophils (%) (Auto) 0.3 % Neutrophils # (Auto) 7.2 TH/MM3 Lymphocytes # (Auto) 1.9 TH/MM3 Monocytes # (Auto) 0.9 TH/MM3 Eosinophils # (Auto) 0.1 TH/MM3 Basophils # (Auto) 0.0 TH/MM3 CBC Comment DIFF FINAL Differential Comment Blood Urea Nitrogen 12 MG/DL 11 MG/DL Creatinine 1.06 MG/DL 1.05 MG/DL Random Glucose 73 MG/DL 72 MG/DL Total Protein 8.4 GM/DL Albumin 3.2 GM/DL Calcium Level 8.8 MG/DL 8.6 MG/DL Alkaline Phosphatase 123 U/L Aspartate Amino Transf (AST/SGOT) 114 U/L Alanine Aminotransferase (ALT/SGPT) 67 U/L Total Bilirubin 0.5 MG/DL Sodium Level 142 MEQ/L 140 MEQ/L Potassium Level 3.1 MEQ/L 3.3 MEQ/L Chloride Level 105 MEQ/L 106 MEQ/L Carbon Dioxide Level 28.7 MEQ/L 25.3 MEQ/L Anion Gap 8 MEQ/L 9 MEQ/L Estimat Glomerular Filtration Rate 101 ML/MIN 102 ML/MIN Thyroid Stimulating Hormone 3rd Gen 1.870 uIU/ML Ethyl Alcohol Level LESS THAN 3 MG/DL Triglycerides Level 45 MG/DL Cholesterol Level 114 MG/DL LDL Cholesterol 65 MG/DL HDL Cholesterol 40.1 MG/DL Cholesterol/HDL Ratio 2.84 RATIO Valproic Acid (Depakene) Level 37 MCG/ML Mental Status Examination Appearance: Appropriate Consciousness: Alert Orientation: Person, Place (At least) Motor Activity: Other (No motor abnormalities noted) Speech: Unremarkable Language: Perseveration Fund of Knowledge: Inadequate Attention and Concentration: Easily Distracted Memory: Unremarkable Mood: Other ("Good") Affect: Euthymic (Childlike) Thought Process & Associations: Linear Thought Content: Other (Poverty of thought) Hallucination Type: Other (Denies AVH but appears somewhat internally stimulated) Delusion Type: None Suicidal Ideation: No Suicidal Plan: No Suicidal Intention: No Homicidal Ideation: No Homicidal Plan: No Homicidal Intention: No Insight: Poor Judgment: Poor Assessment & Plan Problem List: (1) Schizophrenia ICD Codes: F20.9 - Schizophrenia, unspecified Status: Acute Assessment & Plan: I have seen and examined this patient, I agree and concur with Dr. Pulido assessment and plan. (2) Intellectual disability ICD Codes: F79 - Unspecified intellectual disabilities Assessment & Plan Estimated LOS: days Request HC Surrog/Guard Advoc?: Yes Problem Qualifiers (1) Schizophrenia: Qualified Codes: F20.3 - Undifferentiated schizophrenia Brendan Hurd MD Aug 28, 2017 13:50
[2017-08-28 18:28] VITALS: BP 136/64; PULSE 82; RESP 17; TEMP 98.6; O2SAT 97
[2017-08-28 19:01] LABS: AUTOMATED NEUTROPHIL # 10.9 TH/MM3 (1.8-7.7); BASOPHIL % 0.1 % (0.0-2.0); EOSINOPHIL # 0.1 TH/MM3 (0-0.4); EOSINOPHIL % 0.7 % (0.0-4.0); HEMATOCRIT 41.8 % (39.0-51.0); HEMOGLOBIN 13.7 GM/DL (13.0-17.0); LYMPH % 10.6 % (9.0-44.0); LYMPHOCYTE # 1.4 TH/MM3 (1.0-4.8); MEAN CELL VOLUME 85.8 FL (80.0-100.0); MEAN CORPUSCULAR HEMOGLOBIN 28.2 PG (27.0-34.0); MEAN CORPUSCULAR HGB CONC 32.9 % (32.0-36.0); MEAN PLATELET VOLUME 7.2 FL (7.0-11.0); MONO % 7.2 % (0.0-8.0); NEUT % 81.4 % (16.0-70.0); PLATELET COUNT 250 TH/MM3 (150-450); RED BLOOD COUNT 4.87 MIL/MM3 (4.50-5.90); RED CELL DISTRIBUTION WIDTH 13.5 % (11.6-17.2); WHITE BLOOD COUNT 13.3 TH/MM3 (4.0-11.0)
--- NOTE | 2017-08-28 19:38 | RADRPT ---
EXAM DATE/TIME: 08/28/2017 18:40 [place] COMPARISON: No previous studies available for comparison. INDICATIONS : Foreign body. Abdominal pain. MEDICAL HISTORY : None. SURGICAL HISTORY : None. ENCOUNTER: Initial ACUITY: 1 day PAIN SCORE: 0/10 LOCATION: Bilateral abdomen FINDINGS: Supine view of the abdomen was performed. The abdominal bowel gas pattern is normal. No abnormal ma sses, calcifications, or organomegaly is seen. The osseous structures are unremarkable. CONCLUSION: 1. No acute findings. Abdullahi Roberts MD on August 28, 2017 at 19:34 Board Certified Radiologist. This report was verified electronically.
[2017-08-28] MEDS ORDERED: diphenhydrAMINE HCL 50 MG CAP PO ONE (20:45)
[2017-08-29 05:48] VITALS: BP 134/69; PULSE 79; RESP 18; TEMP 98.2; O2SAT 96
[2017-08-29 07:07] LABS: ALBUMIN 2.7 GM/DL (3.4-5.0); ALT (GPT) 50 U/L (12-78); AST (GOT) 50 U/L (15-37); BICARBONATE 25.7 MEQ/L (21.0-32.0); BLOOD UREA NITROGEN 9 MG/DL (7-18); CALCIUM 8.5 MG/DL (8.5-10.1); CHLORIDE 108 MEQ/L (98-107); CREATININE 1.06 MG/DL (0.60-1.30); GLOMERULAR FILTRATION RATE 101 ML/MIN (>89); GLUCOSE,RANDOM 127 MG/DL (74-106); MAGNESIUM 1.7 MG/DL (1.5-2.5); SODIUM (NA) 140 MEQ/L (136-145)
[2017-08-29 07:21] LABS: ALKALINE PHOSPHATASE 119 U/L (45-117); TOTAL BILIRUBIN ADULT 0.3 MG/DL (0.2-1.0); TOTAL PROTEIN 7.9 GM/DL (6.4-8.2)
[2017-08-29] MEDS: REMOVE OLD PATCH T-DERMAL SCH (09:00)
[2017-08-29] MEDS: NYSTATIN 100,000 UNIT/GM CREAM 15 GM TOPICAL SCH ×2 (09:00→21:00)
[2017-08-29] MEDS: NICOTINE 21 MG/24 HR PATCH T-DERMAL SCH (09:00)
--- NOTE | 2017-08-29 11:29 | HHI.PYPN ---
Subjective Chief Complaint: Psychosis Remarks Patient seen and examined with nurse. Chart reviewed. Case discussed with nursing staff. I was called overnight as the physician customer operations intern as patient produced a small plastic object, which he told nurse he had removed from his rectum. I ordered KUB, GI consult, CBC, 1:1. KUB did not reveal any foreign bodies. On my exam today, patient now blandly denies removing object from rectum. He denies that there are any other objects in his rectum. He remains quite childlike. He is presently calm. He denies SI/HI/AVH. No physical complaints. I once again endeavored to reach patient's mother at number listed in EMR, but the number rang until disconnecting. I asked patient if he had other contact information, but he only has the same number I do and says that he has not had any success reaching mother either. Review of Systems ROS Limitations: Poor Historian Except as stated in HPI: all other systems reviewed are Neg Mental Status Examination Appearance: Appropriate Consciousness: Alert Orientation: Person, Place (At least) Motor Activity: Other (no abnormal motor movements noted) Speech: Unremarkable Language: Perseveration Fund of Knowledge: Inadequate Attention and Concentration: Easily Distracted Memory: Unremarkable Mood: Other (calm) Affect: Euthymic (quite childlike) Thought Process & Associations: Linear Thought Content: Other (ongoing poverty of thought) Hallucination Type: None (denies AVH) Delusion Type: None Suicidal Ideation: No Suicidal Plan: No Suicidal Intention: No Homicidal Ideation: No Homicidal Plan: No Homicidal Intention: No Insight: Poor Judgment: Poor Results Labs Test 08/28/17 18:39 08/29/17 06:18 White Blood Count 13.3 TH/MM3 Red Blood Count 4.87 MIL/MM3 Hemoglobin 13.7 GM/DL Hematocrit 41.8 % Mean Corpuscular Volume 85.8 FL Mean Corpuscular Hemoglobin 28.2 PG Mean Corpuscular Hemoglobin Concent 32.9 % Red Cell Distribution Width 13.5 % Platelet Count 250 TH/MM3 Mean Platelet Volume 7.2 FL Neutrophils (%) (Auto) 81.4 % Lymphocytes (%) (Auto) 10.6 % Monocytes (%) (Auto) 7.2 % Eosinophils (%) (Auto) 0.7 % Basophils (%) (Auto) 0.1 % Neutrophils # (Auto) 10.9 TH/MM3 Lymphocytes # (Auto) 1.4 TH/MM3 Monocytes # (Auto) 1.0 TH/MM3 Eosinophils # (Auto) 0.1 TH/MM3 Basophils # (Auto) 0.0 TH/MM3 CBC Comment DIFF FINAL Differential Comment Blood Urea Nitrogen 9 MG/DL Creatinine 1.06 MG/DL Random Glucose 127 MG/DL Total Protein 7.9 GM/DL Albumin 2.7 GM/DL Calcium Level 8.5 MG/DL Magnesium Level 1.7 MG/DL Alkaline Phosphatase 119 U/L Aspartate Amino Transf (AST/SGOT) 50 U/L Alanine Aminotransferase (ALT/SGPT) 50 U/L Total Bilirubin 0.3 MG/DL Sodium Level 140 MEQ/L Potassium Level 3.1 MEQ/L Chloride Level 108 MEQ/L Carbon Dioxide Level 25.7 MEQ/L Anion Gap 6 MEQ/L Estimat Glomerular Filtration Rate 101 ML/MIN Total Creatine Kinase 1046 U/L Creatine Kinase MB 8.4 NG/ML Creatine Kinase MB % 0.8 % Labs reviewed. Mild leukocytosis without obvious signs or symptoms of infection. Ongoing hypokalemia. Magnesium borderline low. CK elevated. Vitals/IOs Vital Signs Date Time Temp Pulse Resp B/P (MAP) Pulse Ox O2 Delivery O2 Flow Rate FiO2 08/29/17 05:48 98.2 79 18 134/69 (90) 96 08/27/17 18:50 Room Air Assessment & Plan Problem List: (1) Schizophrenia ICD Codes: F20.9 - Schizophrenia, unspecified Status: Acute (2) Intellectual disability ICD Codes: F79 - Unspecified intellectual disabilities Assessment & Plan Psychotropic medications remain on hold as we have no one to provide consent for them. GI input noted and appreciated. I will follow-up CT of the abdomen/ pelvis. Replete potassium and magnesium and recheck BMP and magnesium in the morning. Continue to encourage fluids and recheck CK in the morning. Check a urinalysis and check a CBC in the morning. If CK elevation or leukocytosis worsens, will plan to involve hospitalist and possibly transfer to medical psychiatric unit. Continue to monitor on the high acuity unit for now. Continue one to one sitter for today but we might consider discontinuing tomorrow if there is no evidence of behavioral disturbance. Continue other medications and care as ordered. Justification for Cont. Inpt. Complicating conditions. High risk for decompensation in less restrictive environment Discharge Planning Pending psychiatric stabilization Request HC Surrog/Guard Advoc?: Yes Problem Qualifiers (1) Schizophrenia: Qualified Codes: F20.3 - Undifferentiated schizophrenia Shine Pulido MD Aug 29, 2017 11:29
--- NOTE | 2017-08-29 11:36 | PD.CONS ---
HPI History of Present Illness This is a 27 year old male with hx crohn's, bipolar and megan who was brought to hospital by his mother reportedly for not taking meds and not sleeping. GI consulted for concern for foreign body in rectum. He reportedly produced a small white object and told a member of nursing staff it came from his rectum and that "you might want this." Object vaguely resembles chess piece, appears to be white plastic and about 3inches long. No blood visualized. Pt denies having any additional foreign bodies in his rectum and is unable to provide further details on the origin of the white object. He denies bleeding from rectum, diarrhea, abd pain, n/v or any other GI complaints. Does not seem to be a reliable historian and answers everything with "yes ma'am" and "no ma'am." he is know to Dr bryant for hx of Crohn's. Last had colonsocopy 07/2016 with finding polyps. (Laila Torres) PFSH Past Medical History bipolar megan crohn's RA Past Surgical History noncontributory (Laila Torres) Coded Allergies: No Known Allergies (Verified Adverse Reaction, Unknown, 08/27/17) Family History noncontributory Social History noncontributory (Laila Torres) Review of Systems Gastrointestinal: DENIES: Abdominal pain, Bloody stools, Diarrhea, Nausea, Vomiting, Hematemesis otherwise noncontributory (Laila Torres) GI Exam Vitals I&O Vital Signs Date Time Temp Pulse Resp B/P (MAP) Pulse Ox O2 Delivery O2 Flow Rate FiO2 08/29/17 05:48 98.2 79 18 134/69 (90) 96 08/28/17 18:28 98.6 82 17 136/64 (88) 97 Imaging Last Impressions Abdomen X-Ray 08/28/17 0000 Signed Impressions: Service Date/Time: Monday, August 28, 2017 18:40 - CONCLUSION: 1. No acute findings. Abdullahi Roberts MD Laboratory Test 08/28/17 18:39 08/29/17 06:18 White Blood Count 13.3 TH/MM3 Red Blood Count 4.87 MIL/MM3 Hemoglobin 13.7 GM/DL Hematocrit 41.8 % Mean Corpuscular Volume 85.8 FL Mean Corpuscular Hemoglobin 28.2 PG Mean Corpuscular Hemoglobin Concent 32.9 % Red Cell Distribution Width 13.5 % Platelet Count 250 TH/MM3 Mean Platelet Volume 7.2 FL Neutrophils (%) (Auto) 81.4 % Lymphocytes (%) (Auto) 10.6 % Monocytes (%) (Auto) 7.2 % Eosinophils (%) (Auto) 0.7 % Basophils (%) (Auto) 0.1 % Neutrophils # (Auto) 10.9 TH/MM3 Lymphocytes # (Auto) 1.4 TH/MM3 Monocytes # (Auto) 1.0 TH/MM3 Eosinophils # (Auto) 0.1 TH/MM3 Basophils # (Auto) 0.0 TH/MM3 CBC Comment DIFF FINAL Differential Comment Blood Urea Nitrogen 9 MG/DL Creatinine 1.06 MG/DL Random Glucose 127 MG/DL Total Protein 7.9 GM/DL Albumin 2.7 GM/DL Calcium Level 8.5 MG/DL Magnesium Level 1.7 MG/DL Alkaline Phosphatase 119 U/L Aspartate Amino Transf (AST/SGOT) 50 U/L Alanine Aminotransferase (ALT/SGPT) 50 U/L Total Bilirubin 0.3 MG/DL Sodium Level 140 MEQ/L Potassium Level 3.1 MEQ/L Chloride Level 108 MEQ/L Carbon Dioxide Level 25.7 MEQ/L Anion Gap 6 MEQ/L Estimat Glomerular Filtration Rate 101 ML/MIN Total Creatine Kinase 1046 U/L Creatine Kinase MB 8.4 NG/ML Creatine Kinase MB % 0.8 % Physical Examination HEENT: PERRL; normocephalic; atraumatic; no jaundice. CHEST: CTA CARDIAC: RRR ABDOMEN: Soft, nondistended, nontender; no hepatosplenomegaly; bowel sounds are present in all four quadrants. EXTREMITIES: No clubbing, cyanosis, or edema. SKIN: Normal; no rash; no jaundice. BOOTH MANAGER: alert (Laila Torres) Assessment and Plan Plan ASSESSMENT - 27 yo male with hx mult mental illnesses, GI consulted for concern for object in rectum after he produced an object and told nurse it was in his rectum. it is possible the object was in his pocket, unclear if anyone saw him remove it from his rectum. No blood visualized. Pt denies rectal bleeding, pain or any other GI complaints. KUB neg. Object appears to be 3 inch white plastic machine or engine part. 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 Has h/o crohns disease also followed at [facility]. CT abd/pelvis ordered. Thank you (Henrietta Bryant MD) Laila Torres Aug 29, 2017 11:36 Henrietta Bryant MD Aug 29, 2017 13:09
[2017-08-29] MEDS ORDERED: DIATRIZOATE MEGLUM/DIATRIZOATE SOD 9 ML CUP PO ONE (12:00)
[2017-08-29] MEDS: MAGNESIUM OXIDE 400 MG TAB PO SCH (14:30)
[2017-08-29] MEDS ORDERED: POTASSIUM CHLORIDE 10 MEQ CONTROLLED RELEASE TAB PO ONE (14:30)
[2017-08-29] MEDS ORDERED: IOHEXOL 350 MG/ML 10 ML VIAL (for RAD DIAG) IVCONTRAST ONE (15:25)
[2017-08-29 16:47] VITALS: BP 98/56; PULSE 86; RESP 18; TEMP 97.8; O2SAT 97
--- NOTE | 2017-08-29 17:28 | RADRPT ---
EXAM DATE/TIME: 08/29/2017 15:10 [place] COMPARISON: No previous studies available for comparison. INDICATIONS : Evaluate for foreign objects. Object removed from rectum. IV CONTRAST: 90 cc Omnipaque 350 (iohexol) IV ORAL CONTRAST: No oral contrast ingested. RADIATION DOSE: 6.64 CTDIvol (mGy) MEDICAL HISTORY : None SURGICAL HISTORY : None. ENCOUNTER: Initial ACUITY: 1 day PAIN SCALE: 0/10 LOCATION: anterior TECHNIQUE: Volumetric scanning of the abdomen and pelvis was performed. Using automated exposure control and ad justment of the mA and/or kV according to patient size, radiation dose was kept as low as reasonably achievable to obtain optimal diagnostic quality images. DICOM format image data is available electro nically for review and comparison. FINDINGS: LOWER LUNGS: The visualized lower lungs are clear. LIVER: Focal hypodensity superior aspect the left hepatic lobe is probably a cyst. Additional areas of dimin ished attenuation adjacent falciform ligament a nonspecific but probably represent focal fatty infilt ration. Anatomic detail is somewhat limited by motion artifact. There is no dilation of the biliary tree. No calcified gallstones. SPLEEN: Normal size without lesion. PANCREAS: Within normal limits. KIDNEYS: Normal in size and shape. There is no mass, stone or hydronephrosis. ADRENAL GLANDS: Within normal limits. VASCULAR: There is no aortic aneurysm. BOWEL/MESENTERY: There is a some mural thickening of the cecum and ascending colon. No radiopaque foreign body identif ied in the rectal vault. Small amount of perirectal fluid. No free air. ABDOMINAL WALL: Within normal limits. RETROPERITONEUM: There is no lymphadenopathy. BLADDER: No wall thickening or mass. REPRODUCTIVE: Within normal limits. INGUINAL: There is no lymphadenopathy or hernia. MUSCULOSKELETAL: Within normal limits for patient age. CONCLUSION: 1. Mural thickening in the cecum and ascending colon. Findings are nonspecific and may represent a mi ld colitis. 2. Very small amount of free fluid in the perirectal distribution but no findings of perforation or r adiopaque foreign body. 3. Otherwise negative. Alexys Cooper MD on August 29, 2017 at 17:18 Board Certified Radiologist. This report was verified electronically.
[2017-08-30 05:27] VITALS: BP 138/65; PULSE 80; RESP 17; TEMP 98.5; O2SAT 100
[2017-08-30 08:52] LABS: AUTOMATED NEUTROPHIL # 9.6 TH/MM3 (1.8-7.7); BASOPHIL % 0.3 % (0.0-2.0); EOSINOPHIL # 0.2 TH/MM3 (0-0.4); EOSINOPHIL % 1.4 % (0.0-4.0); HEMATOCRIT 46.5 % (39.0-51.0); HEMOGLOBIN 15.5 GM/DL (13.0-17.0); LYMPH % 12.3 % (9.0-44.0); LYMPHOCYTE # 1.5 TH/MM3 (1.0-4.8); MEAN CELL VOLUME 85.7 FL (80.0-100.0); MEAN CORPUSCULAR HEMOGLOBIN 28.5 PG (27.0-34.0); MEAN CORPUSCULAR HGB CONC 33.3 % (32.0-36.0); MEAN PLATELET VOLUME 7.4 FL (7.0-11.0); MONO % 6.2 % (0.0-8.0); MONOCYTE # 0.7 TH/MM3 (0-0.9); NEUT % 79.8 % (16.0-70.0); PLATELET COUNT 334 TH/MM3 (150-450); RED BLOOD COUNT 5.42 MIL/MM3 (4.50-5.90); RED CELL DISTRIBUTION WIDTH 13.9 % (11.6-17.2)
[2017-08-30] MEDS: REMOVE OLD PATCH T-DERMAL SCH (09:00)
[2017-08-30] MEDS: NICOTINE 21 MG/24 HR PATCH T-DERMAL SCH (09:00)
[2017-08-30 09:24] LABS: BICARBONATE 25.6 MEQ/L (21.0-32.0); CALCIUM 8.8 MG/DL (8.5-10.1); MAGNESIUM 1.8 MG/DL (1.5-2.5)
[2017-08-30 09:26] LABS: CREATININE 1.1 MG/DL (0.60-1.30)
[2017-08-30] MEDS: MAGNESIUM OXIDE 400 MG TAB PO SCH (10:11)
--- NOTE | 2017-08-30 12:16 | HHI.PYPN ---
Subjective Chief Complaint: Psychosis Remarks Patient seen and examined. Chart reviewed. Case discussed with nursing staff. Patient remains on one-to-one but has been no behavioral problem. On my exam , patient remains quite childlike. He denies SI/HI. Denies any urge to insert items into rectum, nor has there been any evidence of this ongoing. No delusional material verbalized. No physical complaints. I once again tried to reach patient's mother to get consent for medications but could not reach her. Review of Systems ROS Limitations: Poor Historian Except as stated in HPI: all other systems reviewed are Neg Mental Status Examination Appearance: Appropriate Consciousness: Alert Orientation: Person, Place (At least) Motor Activity: Other (No motoric abnormalities noted) Speech: Unremarkable Language: Perseveration Fund of Knowledge: Inadequate Attention and Concentration: Easily Distracted Memory: Unremarkable Mood: Other (calm) Affect: Euthymic (Remains quite childlike) Thought Process & Associations: Linear Thought Content: Other (Some poverty of thought) Hallucination Type: None Delusion Type: None Suicidal Ideation: No Suicidal Plan: No Suicidal Intention: No Homicidal Ideation: No Homicidal Plan: No Homicidal Intention: No Insight: Poor Judgment: Poor Results Labs Test 08/30/17 07:24 White Blood Count 12.0 TH/MM3 Red Blood Count 5.42 MIL/MM3 Hemoglobin 15.5 GM/DL Hematocrit 46.5 % Mean Corpuscular Volume 85.7 FL Mean Corpuscular Hemoglobin 28.5 PG Mean Corpuscular Hemoglobin Concent 33.3 % Red Cell Distribution Width 13.9 % Platelet Count 334 TH/MM3 Mean Platelet Volume 7.4 FL Neutrophils (%) (Auto) 79.8 % Lymphocytes (%) (Auto) 12.3 % Monocytes (%) (Auto) 6.2 % Eosinophils (%) (Auto) 1.4 % Basophils (%) (Auto) 0.3 % Neutrophils # (Auto) 9.6 TH/MM3 Lymphocytes # (Auto) 1.5 TH/MM3 Monocytes # (Auto) 0.7 TH/MM3 Eosinophils # (Auto) 0.2 TH/MM3 Basophils # (Auto) 0.0 TH/MM3 CBC Comment DIFF FINAL Differential Comment Blood Urea Nitrogen 8 MG/DL Creatinine 1.10 MG/DL Random Glucose 72 MG/DL Calcium Level 8.8 MG/DL Magnesium Level 1.8 MG/DL Sodium Level 139 MEQ/L Potassium Level 3.4 MEQ/L Chloride Level 104 MEQ/L Carbon Dioxide Level 25.6 MEQ/L Anion Gap 9 MEQ/L Estimat Glomerular Filtration Rate 97 ML/MIN Total Creatine Kinase 701 U/L Creatine Kinase MB 6.3 NG/ML Creatine Kinase MB % 0.9 % Labs reviewed. Leukocytosis stable. CK downtrending. Ongoing mild hypokalemia. Urinalysis not available for my review. Last Impressions Abdomen/Pelvis CT 08/29/17 0000 Signed Impressions: Service Date/Time: Tuesday, August 29, 2017 15:10 - CONCLUSION: 1. Mural thickening in the cecum and ascending colon. Findings are nonspecific and may represent a mild colitis. 2. Very small amount of free fluid in the perirectal distribution but no findings of perforation or radiopaque foreign body. 3. Otherwise negative. Alexys Cooper MD Abdomen X-Ray 08/28/17 0000 Signed Impressions: Service Date/Time: Monday, August 28, 2017 18:40 - CONCLUSION: 1. No acute findings. Abdullahi Roberts MD Vitals/IOs Vital Signs Date Time Temp Pulse Resp B/P (MAP) Pulse Ox O2 Delivery O2 Flow Rate FiO2 08/30/17 05:27 98.5 80 17 138/65 (89) 100 08/27/17 18:50 Room Air Assessment & Plan Problem List: (1) Schizophrenia ICD Codes: F20.9 - Schizophrenia, unspecified Status: Acute (2) Intellectual disability ICD Codes: F79 - Unspecified intellectual disabilities Assessment & Plan Psychotropics remain on hold as healthcare surrogate has not yet provided consent. Replete potassium and continue magnesium supplement. I will also start the patient on a small dose of daily potassium supplement as he seems to be consistently hypokalemic. Continue to encourage hydration. Check BMP, magnesium, CK in the morning. Discontinue one-to-one as there is no evidence of ongoing behavioral disturbance. Continue other medications and care as ordered. Justification for Cont. Inpt. Risk for decompensation in less restrictive environment. Discharge Planning Discharge planning becoming problematic as mother is unable to be reached. I have asked the counselor to have police perform a well-person check to ensure that mother is not herself in some way incapacitated. Request HC Surrog/Guard Advoc?: Yes Problem Qualifiers (1) Schizophrenia: Qualified Codes: F20.3 - Undifferentiated schizophrenia Shine Pulido MD Aug 30, 2017 12:16
[2017-08-30] MEDS ORDERED: POTASSIUM CHLORIDE 20 MEQ CONTROLLED RELEASE TAB PO ONE (12:35)
--- NOTE | 2017-08-30 14:38 | HHI.GIFU ---
Subjective Remarks Pt with no GI complaints. Denies abd pain, rectal bleeding, presence of objects in rectum. (Laila Torres) Objective Vitals I&O Vital Signs Date Time Temp Pulse Resp B/P (MAP) Pulse Ox O2 Delivery O2 Flow Rate FiO2 08/30/17 05:27 98.5 80 17 138/65 (89) 100 08/29/17 16:47 97.8 86 18 98/56 (70) 97 Laboratory Laboratory Tests Test 08/30/17 07:24 White Blood Count 12.0 Red Blood Count 5.42 Hemoglobin 15.5 Hematocrit 46.5 Mean Corpuscular Volume 85.7 Mean Corpuscular Hemoglobin 28.5 Mean Corpuscular Hemoglobin Concent 33.3 Red Cell Distribution Width 13.9 Platelet Count 334 Mean Platelet Volume 7.4 Neutrophils (%) (Auto) 79.8 Lymphocytes (%) (Auto) 12.3 Monocytes (%) (Auto) 6.2 Eosinophils (%) (Auto) 1.4 Basophils (%) (Auto) 0.3 Neutrophils # (Auto) 9.6 Lymphocytes # (Auto) 1.5 Monocytes # (Auto) 0.7 Eosinophils # (Auto) 0.2 Basophils # (Auto) 0.0 CBC Comment DIFF FINAL Differential Comment Blood Urea Nitrogen 8 Creatinine 1.10 Random Glucose 72 Calcium Level 8.8 Magnesium Level 1.8 Sodium Level 139 Potassium Level 3.4 Chloride Level 104 Carbon Dioxide Level 25.6 Anion Gap 9 Estimat Glomerular Filtration Rate 97 Total Creatine Kinase 701 Creatine Kinase MB 6.3 Creatine Kinase MB % 0.9 Imaging Last Impressions Abdomen/Pelvis CT 08/29/17 0000 Signed Impressions: Service Date/Time: Tuesday, August 29, 2017 15:10 - CONCLUSION: 1. Mural thickening in the cecum and ascending colon. Findings are nonspecific and may represent a mild colitis. 2. Very small amount of free fluid in the perirectal distribution but no findings of perforation or radiopaque foreign body. 3. Otherwise negative. Alexys Cooper MD Abdomen X-Ray 08/28/17 0000 Signed Impressions: Service Date/Time: Monday, August 28, 2017 18:40 - CONCLUSION: 1. No acute findings. Abdullahi Roberts MD Physical Exam HEENT: PERRL; normocephalic; atraumatic; no jaundice. CHEST: respirations unlabored CARDIAC: RRR ABDOMEN: Soft, nondistended, nontender; no hepatosplenomegaly; bowel sounds are present in all four quadrants. EXTREMITIES: No clubbing, cyanosis, or edema. SKIN: Normal; no rash; no jaundice. SENIOR ENVIRONMENTAL CONSULTANT: alert (Laila Torres) Assessment and Plan Plan ASSESSMENT - 27 yo male with hx mult mental illnesses, GI consulted for concern for object in rectum after he produced an object and told nurse it was in his rectum. it is possible the object was in his pocket, unclear if anyone saw him remove it from his rectum. No blood visualized. Pt denies rectal bleeding, pain or any other GI complaints. KUB neg. Object appears to be 3 inch white plastic machine or engine part. 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 no GI complaints or sx. denies pain, bleeding, objects in rectum. CT showed mild colitis, trace perirectal free fluid, no perforation or foreign body. PLAN - monitor labs - notify GI of rectal bleeding, or other objects produced - GI will sign off. please reconsult as needed pt seen by myself and Dr Hyman and this note is on his behalf (Laila Torres) Physician Comments Seen and examined with MAGNUS, doing well. No complaints. CT R sided colitis. He is supposed to be on humira as outpt. unclear if he is still on it or not. Unable to reach mother. Started on ascaol. Gi will sign off, please have fu in gi clinic once mental status stabilizes to discuss further treatment options. Thank you (Henrietta Hyman MD) Laila Torres Aug 30, 2017 14:38 Henrietta Hyman MD Aug 30, 2017 17:16
[2017-08-30] MEDS: NYSTATIN 100,000 UNIT/GM CREAM 15 GM TOPICAL SCH ×2 (17:44→21:00)
[2017-08-30] MEDS: MESALAMINE HD 800 MG DELAYED RELEASE TAB PO SCH ×2 (17:44→22:00)
[2017-08-30 17:51] VITALS: BP 144/85; PULSE 93; RESP 16; TEMP 97.5; O2SAT 100
[2017-08-31 05:56] VITALS: BP 150/83; PULSE 88; RESP 16; TEMP 99; O2SAT 96
[2017-08-31] MEDS: MESALAMINE HD 800 MG DELAYED RELEASE TAB PO SCH ×3 (08:16→21:51)
[2017-08-31] MEDS: NICOTINE 21 MG/24 HR PATCH T-DERMAL SCH ×2 (08:34→18:50)
[2017-08-31] MEDS: POTASSIUM CHLORIDE 10 MEQ CAP PO SCH (08:34)
[2017-08-31] MEDS: REMOVE OLD PATCH T-DERMAL SCH (08:34)
[2017-08-31] MEDS: NYSTATIN 100,000 UNIT/GM CREAM 15 GM TOPICAL SCH ×2 (08:34→21:50)
[2017-08-31] MEDS: MAGNESIUM OXIDE 400 MG TAB PO SCH (08:34)
[2017-08-31 10:51] LABS: BICARBONATE 30.1 MEQ/L (21.0-32.0); CALCIUM 8.9 MG/DL (8.5-10.1); MAGNESIUM 1.7 MG/DL (1.5-2.5)
--- NOTE | 2017-08-31 12:45 | HHI.PYPN ---
Subjective Chief Complaint: Psychosis Remarks Patient seen and examined with nurse. Chart reviewed. Case discussed with nursing staff who reports patient was hallucinating snakes and people in his room overnight. Otherwise no behavioral problem. On my examination today, the patient remains quite childlike. He denies AVH presently. Denies SI or HI. Denies urge to self injure or insert items into rectum today. No physical complaints. I was able to get a hold of patient's mother today. She notes that the patient was adherent with his daytime medications but would not take his nighttime medications and would go wandering. She would like the patient to be stabilized on medications after which she will be able to accept him home. She is willing to serve as health care surrogate and provides consent for medications today. Review of Systems ROS Limitations: Psychotic, Poor Historian Except as stated in HPI: all other systems reviewed are Neg Mental Status Examination Appearance: Appropriate Consciousness: Alert, Somnolent Orientation: Person, Place (At least) Motor Activity: Other (No abnormal motor movements noted) Speech: Unremarkable Language: Perseveration Fund of Knowledge: Inadequate Attention and Concentration: Easily Distracted Memory: Unremarkable Mood: Other (Remains calm) Affect: Euthymic (Remains quite childlike) Thought Process & Associations: Linear Thought Content: Other (Some poverty of thought) Hallucination Type: None (Denies AVH presently but see nursing report) Delusion Type: None Suicidal Ideation: No Suicidal Plan: No Suicidal Intention: No Homicidal Ideation: No Homicidal Plan: No Homicidal Intention: No Insight: Poor Judgment: Poor Results Labs Test 08/31/17 09:46 Blood Urea Nitrogen 9 MG/DL Creatinine 1.00 MG/DL Random Glucose 74 MG/DL Calcium Level 8.9 MG/DL Magnesium Level 1.7 MG/DL Sodium Level 139 MEQ/L Potassium Level 3.8 MEQ/L Chloride Level 104 MEQ/L Carbon Dioxide Level 30.1 MEQ/L Anion Gap 5 MEQ/L Estimat Glomerular Filtration Rate 108 ML/MIN Total Creatine Kinase 456 U/L Creatine Kinase MB 4.7 NG/ML Creatine Kinase MB % 1.0 % Labs reviewed. Hypokalemia improved. CK continues to trend downward. Vitals/IOs Vital Signs Date Time Temp Pulse Resp B/P (MAP) Pulse Ox O2 Delivery O2 Flow Rate FiO2 08/31/17 05:56 99.0 88 16 150/83 (105) 96 4/2/18 18:50 Room Air Assessment & Plan Problem List: (1) Schizophrenia ICD Codes: F20.9 - Schizophrenia, unspecified Status: Acute (2) Intellectual disability ICD Codes: F79 - Unspecified intellectual disabilities Assessment & Plan Resume Depakote and Seroquel. I will consolidate the Depakote into a single daily dose to improve adherence. Plan to check a Depakote level after the appropriate interval. I will taper the dose of Seroquel at bedtime somewhat as it sounds like he has been nonadherent with this medication in order to avoid oversedation. Check BMP, magnesium and CK on Sunday morning. Continue to monitor on inpatient unit. Continue other medications and care as ordered. Justification for Cont. Inpt. Medication changes. Risk for decompensation in less restrictive environment. Discharge Planning Pending psychiatric stabilization Request HC Surrog/Guard Advoc?: Yes Problem Qualifiers (1) Schizophrenia: Qualified Codes: F20.3 - Undifferentiated schizophrenia Shine Pulido MD Aug 31, 2017 12:45
[2017-08-31] MEDS ORDERED: BENZTROPINE MESYLATE 2 MG/2 ML VIAL IM PRN (13:00)
[2017-08-31] MEDS ORDERED: diphenhydrAMINE HCL 50 MG CAP PO PRN (13:00)
[2017-08-31] MEDS ORDERED: BENZTROPINE MESYLATE 1 MG TAB PO PRN (13:00)
[2017-08-31] MEDS ORDERED: LORazepam 2 MG/ML VIAL IM PRN (13:00)
[2017-08-31 17:35] VITALS: BP 132/89; PULSE 92; RESP 17; TEMP 98.9
[2017-08-31] MEDS: QUEtiapine FUMARATE 200 MG TAB PO SCH (21:50)
[2017-09-01] MEDS: MESALAMINE HD 800 MG DELAYED RELEASE TAB PO SCH ×3 (06:05→20:25)
[2017-09-01 06:28] VITALS: BP 136/68; PULSE 101; RESP 16; TEMP 97.6; O2SAT 100
[2017-09-01] MEDS: MAGNESIUM OXIDE 400 MG TAB PO SCH (09:00)
[2017-09-01] MEDS: NICOTINE 21 MG/24 HR PATCH T-DERMAL SCH (09:00)
[2017-09-01] MEDS: NYSTATIN 100,000 UNIT/GM CREAM 15 GM TOPICAL SCH ×2 (09:00→20:25)
[2017-09-01] MEDS: REMOVE OLD PATCH T-DERMAL SCH (09:00)
[2017-09-01] MEDS: POTASSIUM CHLORIDE 10 MEQ CAP PO SCH (09:00)
[2017-09-01] MEDS: DIVALPROEX SODIUM E.R. 500 MG TAB PO SCH (09:00)
--- NOTE | 2017-09-01 15:35 | HHI.PYPN ---
Subjective Chief Complaint: Psychosis Remarks Reviewed electronic medical record and discussed case with staff. Staff reports patient has been pleasant, childlike, and internally stimulated. He has been observed laughing and talking to himself. Follow-up was conducted in patient's room with nurse present. Patient reports that he slept well last night. He denies SI, HI, auditory or visual hallucinations, but again staff reports that he has been seen talking to himself. Mental Status Examination Appearance: Appropriate Consciousness: Alert, Somnolent Orientation: Person, Place (At least) Motor Activity: Other (No abnormal motor movements noted) Speech: Unremarkable Language: Perseveration Fund of Knowledge: Inadequate Attention and Concentration: Easily Distracted Memory: Unremarkable Mood: Other (Remains calm) Affect: Euthymic (Remains quite childlike) Thought Process & Associations: Linear Thought Content: Other (Some poverty of thought) Hallucination Type: None (Denies AVH presently but see nursing report) Delusion Type: None Suicidal Ideation: No Suicidal Plan: No Suicidal Intention: No Homicidal Ideation: No Homicidal Plan: No Homicidal Intention: No Insight: Poor Judgment: Poor Results Vitals/IOs Vital Signs Date Time Temp Pulse Resp B/P (MAP) Pulse Ox O2 Delivery O2 Flow Rate FiO2 09/01/17 06:28 97.6 101 16 136/68 (90) 100 Assessment & Plan Problem List: (1) Schizophrenia ICD Codes: F20.9 - Schizophrenia, unspecified Status: Acute (2) Intellectual disability ICD Codes: F79 - Unspecified intellectual disabilities Assessment & Plan Estimated LOS: While patient has showed some improvement he continues to be internally stimulated. We will continue with treatment plan. Justification for Cont. Inpt. Moving patient to a lower level of care would likely result in decompensation. Patient lacks capacity to care for self. Request HC Surrog/Guard Advoc?: Yes Problem Qualifiers (1) Schizophrenia: Qualified Codes: F20.3 - Undifferentiated schizophrenia Kanchan Medrano Sep 01, 2017 15:34
[2017-09-01 16:50] VITALS: BP 139/87; PULSE 94; RESP 17; TEMP 97.6; O2SAT 100
[2017-09-01] MEDS: QUEtiapine FUMARATE 200 MG TAB PO SCH (20:24)
[2017-09-01] MEDS: LORazepam 1 MG TAB PO PRN (21:03)
[2017-09-02] MEDS: MESALAMINE HD 800 MG DELAYED RELEASE TAB PO SCH ×3 (05:19→21:18)
[2017-09-02 06:18] VITALS: BP 122/79; PULSE 98; RESP 17; TEMP 98.1; O2SAT 97
[2017-09-02] MEDS: REMOVE OLD PATCH T-DERMAL SCH (09:00)
[2017-09-02] MEDS: NICOTINE 21 MG/24 HR PATCH T-DERMAL SCH (09:00)
[2017-09-02] MEDS: NYSTATIN 100,000 UNIT/GM CREAM 15 GM TOPICAL SCH ×2 (09:00→20:21)
[2017-09-02] MEDS: DIVALPROEX SODIUM E.R. 500 MG TAB PO SCH (09:29)
[2017-09-02] MEDS: MAGNESIUM OXIDE 400 MG TAB PO SCH (09:29)
[2017-09-02] MEDS: POTASSIUM CHLORIDE 10 MEQ CAP PO SCH (09:29)
--- NOTE | 2017-09-02 11:14 | HHI.PYPN ---
Subjective Chief Complaint: Psychosis Remarks Reviewed electronic medical record and discussed case with staff. Staff reported that yesterday afternoon Mr. Pressley laid himself on the floor in the hallway right outside of the nurses station window and began shaking. One staff directed him to stop, he did. At that time he got up and walked away. Follow-up was performed in day room. Patient reports that he has slept well and his appetite has been good. He has been compliant with his medications. His mood is good his affect is euthymic. He denies feeling suicidal or homicidal, hearing voices or having visual hallucinations. When asked why he is in the facility he refers to x-rays of medical treatment. However, when reminded that he had been missing his evening medications and walking all hours a night patient does acknowledge this fact.'s interactions throughout the interview was appropriate. He does not seem to be internally stimulated. His speech was clear, logical, and organized although his answers are brief. Mental Status Examination Appearance: Appropriate Consciousness: Alert, Somnolent Orientation: Person, Place (At least) Motor Activity: Other (No abnormal motor movements noted) Speech: Unremarkable Language: Perseveration Fund of Knowledge: Inadequate Attention and Concentration: Easily Distracted Memory: Unremarkable Mood: Other (Remains calm) Affect: Euthymic (Remains quite childlike) Thought Process & Associations: Linear Thought Content: Other (Some poverty of thought) Hallucination Type: None (Denies AVH presently but see nursing report) Delusion Type: None Suicidal Ideation: No Suicidal Plan: No Suicidal Intention: No Homicidal Ideation: No Homicidal Plan: No Homicidal Intention: No Insight: Poor Judgment: Poor Results Vitals/IOs Vital Signs Date Time Temp Pulse Resp B/P (MAP) Pulse Ox O2 Delivery O2 Flow Rate FiO2 09/02/17 06:18 98.1 98 17 122/79 (93) 97 Assessment & Plan Problem List: (1) Schizophrenia ICD Codes: F20.9 - Schizophrenia, unspecified Status: Acute (2) Intellectual disability ICD Codes: F79 - Unspecified intellectual disabilities Assessment & Plan Estimated LOS: We will continue with treatment plan. Discharge planning in progress. Justification for Cont. Inpt. Moving this patient to a lower level of care would likely result in decompensation. Request HC Surrog/Guard Advoc?: Yes Problem Qualifiers (1) Schizophrenia: Qualified Codes: F20.3 - Undifferentiated schizophrenia Mitchell,Kanchan MICROBIOLOGY COORDINATOR Sep 02, 2017 11:14
[2017-09-02] MEDS: LORazepam 1 MG TAB PO PRN (13:00)
[2017-09-02 17:19] VITALS: BP 129/64; PULSE 91; RESP 17; TEMP 98.3; O2SAT 98
[2017-09-02] MEDS: QUEtiapine FUMARATE 200 MG TAB PO SCH (20:21)
[2017-09-03] MEDS: MESALAMINE HD 800 MG DELAYED RELEASE TAB PO SCH ×3 (06:20→22:00)
[2017-09-03] MEDS: POTASSIUM CHLORIDE 10 MEQ CAP PO SCH (08:43)
[2017-09-03] MEDS: DIVALPROEX SODIUM E.R. 500 MG TAB PO SCH (08:43)
[2017-09-03] MEDS: NICOTINE 21 MG/24 HR PATCH T-DERMAL SCH (08:43)
[2017-09-03] MEDS: REMOVE OLD PATCH T-DERMAL SCH (08:43)
[2017-09-03] MEDS: MAGNESIUM OXIDE 400 MG TAB PO SCH (08:43)
[2017-09-03] MEDS: NYSTATIN 100,000 UNIT/GM CREAM 15 GM TOPICAL SCH ×2 (08:44→20:41)
[2017-09-03 09:13] LABS: BICARBONATE 30.4 MEQ/L (21.0-32.0); CALCIUM 8.9 MG/DL (8.5-10.1); CREATININE 1.09 MG/DL (0.60-1.30); MAGNESIUM 1.7 MG/DL (1.5-2.5)
--- NOTE | 2017-09-03 11:10 | HHI.PYPN ---
Subjective Chief Complaint: Psychosis Remarks Patient seen and examined with nurse. Chart reviewed. Case discussed with nursing staff who reports patient noted on the unit to be laughing and dancing and singing and "then he will flip" and grow dysphoric, irritable and somewhat threatening. On my examination today, patient is childlike and euthymic. He insists that he saw a hole in the bathroom floor, although none has been reported to me by staff. Patient says that he saw the hole and wanted to hold his sock above it, unclear why. He denies SI/HI. No side effects from medications. No physical complaints. Review of Systems ROS Limitations: Psychotic, Poor Historian Except as stated in HPI: all other systems reviewed are Neg Mental Status Examination Appearance: Appropriate Consciousness: Alert Orientation: Person, Place (At least) Motor Activity: Other (No motoric abnormalities noted) Speech: Unremarkable Language: Perseveration Fund of Knowledge: Inadequate Attention and Concentration: Easily Distracted Memory: Unremarkable Mood: Other (Calm) Affect: Euthymic (Childlike) Thought Process & Associations: Tangential Thought Content: Other (Some poverty of thought) Hallucination Type: Visual Delusion Type: None Suicidal Ideation: No Suicidal Plan: No Suicidal Intention: No Homicidal Ideation: No Homicidal Plan: No Homicidal Intention: No Insight: Poor Judgment: Poor Results Labs Test 09/03/17 08:23 Blood Urea Nitrogen 8 MG/DL Creatinine 1.09 MG/DL Random Glucose 67 MG/DL Calcium Level 8.9 MG/DL Magnesium Level 1.7 MG/DL Sodium Level 137 MEQ/L Potassium Level 3.3 MEQ/L Chloride Level 100 MEQ/L Carbon Dioxide Level 30.4 MEQ/L Anion Gap 7 MEQ/L Estimat Glomerular Filtration Rate 98 ML/MIN Total Creatine Kinase 283 U/L Labs reviewed. Vitals/IOs Vital Signs Date Time Temp Pulse Resp B/P (MAP) Pulse Ox O2 Delivery O2 Flow Rate FiO2 09/02/17 17:19 98.3 91 17 129/64 (85) 98 Assessment & Plan Problem List: (1) Schizophrenia ICD Codes: F20.9 - Schizophrenia, unspecified Status: Acute (2) Intellectual disability ICD Codes: F79 - Unspecified intellectual disabilities Assessment & Plan No evidence of sedation or other side effects from current doses of psychotropics. Titrate Seroquel back to 400mg qHS to target psychosis. Continue Depakote as ordered; plan to check a Depakote and ammonia level tomorrow morning. Continue to monitor on inpatient unit. Continue other medications and care as ordered. Justification for Cont. Inpt. Med changes. Risk for decompensation in less restrictive environment. Discharge Planning Pending stabilization. Request HC Surrog/Guard Advoc?: Yes Problem Qualifiers (1) Schizophrenia: Qualified Codes: F20.3 - Undifferentiated schizophrenia Shine Pulido MD Sep 03, 2017 11:10
[2017-09-03 17:08] VITALS: BP 142/80; PULSE 98; RESP 18; TEMP 98.6; O2SAT 98
[2017-09-03] MEDS ORDERED: QUEtiapine FUMARATE 200 MG TAB PO SCH (21:00)
[2017-09-04] MEDS: MESALAMINE HD 800 MG DELAYED RELEASE TAB PO SCH ×3 (06:00→21:02)
[2017-09-04 06:04] VITALS: BP 117/59; PULSE 92; RESP 18; TEMP 98.2
[2017-09-04] MEDS: DIVALPROEX SODIUM E.R. 500 MG TAB PO SCH (08:55)
[2017-09-04] MEDS: POTASSIUM CHLORIDE 10 MEQ CAP PO SCH (08:55)
[2017-09-04] MEDS: MAGNESIUM OXIDE 400 MG TAB PO SCH (08:56)
[2017-09-04] MEDS: REMOVE OLD PATCH T-DERMAL SCH (08:56)
[2017-09-04] MEDS: NICOTINE 21 MG/24 HR PATCH T-DERMAL SCH (08:56)
[2017-09-04] MEDS: NYSTATIN 100,000 UNIT/GM CREAM 15 GM TOPICAL SCH ×2 (09:00→21:00)
--- NOTE | 2017-09-04 11:32 | HHI.PYPN ---
Subjective Chief Complaint: Psychosis Remarks Patient seen and examined with nurse. Chart reviewed. Case discussed with nursing staff he reports patient has been quite affable and was asking for " milk shots." Nurse suspects patient was referring to some sort of long-acting antipsychotic as some have a milky appearance. On my examination today, patient initially has a more somber demeanor than in previous contacts. He says that he is troubled because "kids keep coming to me, I can't get no sleep. " A little later in the interview he changes and resumes his more typical childlike, euthymic mien. No side effects from medications. No physical complaints. Review of Systems ROS Limitations: Psychotic, Poor Historian Except as stated in HPI: all other systems reviewed are Neg Mental Status Examination Appearance: Appropriate Consciousness: Alert Orientation: Person, Place (At least) Motor Activity: Other (No abnormal motor movements noted) Speech: Unremarkable Language: Perseveration Fund of Knowledge: Inadequate Attention and Concentration: Easily Distracted Memory: Unremarkable Mood: Other (Remains calm) Affect: Labile Thought Process & Associations: Tangential Thought Content: Other (Ongoing poverty of thought) Hallucination Type: Visual Delusion Type: None Suicidal Ideation: No Suicidal Plan: No Suicidal Intention: No Homicidal Ideation: No Homicidal Plan: No Homicidal Intention: No Insight: Poor Judgment: Poor Results Labs Test 09/04/17 06:59 Ammonia 22 MCMOL/L Valproic Acid (Depakene) Level 46 MCG/ML Labs reviewed. Ammonia level not elevated. Depakote level subtherapeutic. Vitals/IOs Vital Signs Date Time Temp Pulse Resp B/P (MAP) Pulse Ox O2 Delivery O2 Flow Rate FiO2 09/04/17 06:04 98.2 92 18 117/59 (78) 09/03/17 17:08 98 Assessment & Plan Problem List: (1) Schizophrenia ICD Codes: F20.9 - Schizophrenia, unspecified Status: Acute (2) Intellectual disability ICD Codes: F79 - Unspecified intellectual disabilities Assessment & Plan Titrate Seroquel to 500 mg at bedtime to target psychotic symptoms. Titrate Depakote to 1250 mg daily to try to bring level within the therapeutic range; plan to check a follow-up level later in the week. Continue to monitor on inpatient unit. Continue other medications and care as ordered. Justification for Cont. Inpt. Medication changes. Impairment in reality construction. Risk for decompensation in less restrictive environment. Discharge Planning Pending stabilization. I have asked the counselor to contact patient's mother to ask her to make a visit to assess patient's progress. Request HC Surrog/Guard Advoc?: Yes Problem Qualifiers (1) Schizophrenia: Qualified Codes: F20.3 - Undifferentiated schizophrenia Shine Pulido MD Sep 04, 2017 11:32
[2017-09-04 17:58] VITALS: BP 144/80; PULSE 93; RESP 18; TEMP 98.1; O2SAT 98
[2017-09-04] MEDS: QUEtiapine FUMARATE 100 MG TAB PO SCH (20:52)
[2017-09-05 05:44] VITALS: BP 114/61; PULSE 94; RESP 18; TEMP 98.2; O2SAT 96
[2017-09-05] MEDS: MESALAMINE HD 800 MG DELAYED RELEASE TAB PO SCH ×3 (06:36→21:31)
[2017-09-05] MEDS: REMOVE OLD PATCH T-DERMAL SCH (09:00)
[2017-09-05] MEDS: NICOTINE 21 MG/24 HR PATCH T-DERMAL SCH (09:00)
[2017-09-05] MEDS: NYSTATIN 100,000 UNIT/GM CREAM 15 GM TOPICAL SCH ×2 (09:00→21:31)
[2017-09-05] MEDS: DIVALPROEX SODIUM E.R. 250 MG TAB PO SCH (09:43)
[2017-09-05] MEDS: POTASSIUM CHLORIDE 10 MEQ CAP PO SCH (09:44)
[2017-09-05] MEDS: MAGNESIUM OXIDE 400 MG TAB PO SCH (09:45)
--- NOTE | 2017-09-05 09:48 | HHI.PYPN ---
Subjective Chief Complaint: Psychosis Remarks Reviewed electronic medical record and discussed case with staff. Follow-up was performed in day room. Patient's mood is good and his affect is euthymic. He reports that he slept well his appetite is been good. He denies suicidal ideation, homicidal ideation, AVH. Spoke with Niraj counselor. He reports that patient's mother stated that she felt he was doing good but not quite back to where he needed to be yet. Patient's mother was by to visit patient yesterday. Niraj will make contact with her again today. Mental Status Examination Appearance: Appropriate Consciousness: Alert Orientation: Person, Place (At least) Motor Activity: Other (No abnormal motor movements noted) Speech: Unremarkable Language: Perseveration Fund of Knowledge: Inadequate Attention and Concentration: Easily Distracted Memory: Unremarkable Mood: Other (Remains calm) Affect: Labile Thought Process & Associations: Tangential Thought Content: Other (Ongoing poverty of thought) Hallucination Type: Visual Delusion Type: None Suicidal Ideation: No Suicidal Plan: No Suicidal Intention: No Homicidal Ideation: No Homicidal Plan: No Homicidal Intention: No Insight: Poor Judgment: Poor Results Vitals/IOs Vital Signs Date Time Temp Pulse Resp B/P (MAP) Pulse Ox O2 Delivery O2 Flow Rate FiO2 09/05/17 05:44 98.2 94 18 114/61 (78) 96 Assessment & Plan Problem List: (1) Schizophrenia ICD Codes: F20.9 - Schizophrenia, unspecified Status: Acute (2) Intellectual disability ICD Codes: F79 - Unspecified intellectual disabilities Assessment & Plan Estimated LOS: Discharge planning in progress. Treatment plan to continue as ordered. Days Justification for Cont. Inpt. Moving this patient to a lower level of care would likely result in decompensation. Discharge planning in progress. Request HC Surrog/Guard Advoc?: Yes Problem Qualifiers (1) Schizophrenia: Qualified Codes: F20.3 - Undifferentiated schizophrenia Kanchan Medrano Sep 05, 2017 09:48
[2017-09-05 17:35] VITALS: BP 153/72; PULSE 96; RESP 18; TEMP 98.6; O2SAT 100
[2017-09-05] MEDS: QUEtiapine FUMARATE 100 MG TAB PO SCH (21:31)
[2017-09-06] MEDS: MESALAMINE HD 800 MG DELAYED RELEASE TAB PO SCH ×3 (05:24→22:00)
[2017-09-06 06:08] VITALS: BP 130/76; PULSE 101; RESP 18; TEMP 98.6; O2SAT 97
--- NOTE | 2017-09-06 08:02 | HHI.PYPN ---
Subjective Chief Complaint: Psychosis Remarks Patient seen and examined with nurse. Chart reviewed. Case discussed with nursing staff. Patient had an episode yesterday when he was reportedly yelling and screaming for unclear reasons but since has been no behavioral problem. He is medication compliant. Case discussed with counselor. On my examination today, the patient remains quite childlike. He continues to respond to internal stimuli. He does not verbalize any delusional material today however and in particular does not believe that he was being kept awake by children as before. He denies any suicidal or homicidal ideation. No side effects from medications. No physical complaints. Review of Systems ROS Limitations: Psychotic, Poor Historian Except as stated in HPI: all other systems reviewed are Neg Mental Status Examination Appearance: Appropriate Consciousness: Alert Orientation: Person, Place (At least) Motor Activity: Other (no motoric abnormalities appreciated) Speech: Unremarkable Language: Other (somewhat limited but generally adequate) Fund of Knowledge: Inadequate Attention and Concentration: Easily Distracted Memory: Unremarkable Mood: Appropriate Affect: Other (childlike, presently euthymic) Thought Process & Associations: Tangential Thought Content: Other (Ongoing poverty of thought) Hallucination Type: Other (appears internally preoccupied) Delusion Type: None Suicidal Ideation: No Suicidal Plan: No Suicidal Intention: No Homicidal Ideation: No Homicidal Plan: No Homicidal Intention: No Insight: Poor Judgment: Poor Results Labs Labs reviewed Vitals/IOs Vital Signs Date Time Temp Pulse Resp B/P (MAP) Pulse Ox O2 Delivery O2 Flow Rate FiO2 09/06/17 06:08 98.6 101 18 130/76 (94) 97 Assessment & Plan Problem List: (1) Schizophrenia ICD Codes: F20.9 - Schizophrenia, unspecified Status: Acute (2) Intellectual disability ICD Codes: F79 - Unspecified intellectual disabilities Assessment & Plan Titrate Seroquel to target psychosis. To prevent excessive sedation from dosing this all at night, I will add a daytime dose of 100 mg daily and continue nighttime dose as ordered. To consider further titration of this agent over the weekend to target psychotic symptoms if needed. Continue Depakote as ordered and follow up Depakote level ordered for tomorrow morning. To consider adjusting Depakote dose based on the level. Continue to monitor on the inpatient unit. Continue other medications and care as ordered. The patient's case was presented to the [place] court and the patient was retained on the unit by the marine electronics technician with mother to service guardian advocate. Patient's mother was in attendance at [employer] [facility]. Justification for Cont. Inpt. Medication changes. Risk for decompensation in less restrictive environment. Discharge Planning Home with mother with outpatient follow-up pending psychiatric stabilization. Request HC Surrog/Guard Advoc?: Yes Problem Qualifiers (1) Schizophrenia: Qualified Codes: F20.3 - Undifferentiated schizophrenia Shine Pulido MD Sep 06, 2017 08:02
[2017-09-06] MEDS: NICOTINE 21 MG/24 HR PATCH T-DERMAL SCH (08:36)
[2017-09-06] MEDS: MAGNESIUM OXIDE 400 MG TAB PO SCH (08:36)
[2017-09-06] MEDS: DIVALPROEX SODIUM E.R. 250 MG TAB PO SCH (08:36)
[2017-09-06] MEDS: POTASSIUM CHLORIDE 10 MEQ CAP PO SCH (08:36)
[2017-09-06] MEDS: REMOVE OLD PATCH T-DERMAL SCH (08:37)
[2017-09-06] MEDS: NYSTATIN 100,000 UNIT/GM CREAM 15 GM TOPICAL SCH ×2 (08:37→20:29)
[2017-09-06] MEDS: LORazepam 1 MG TAB PO PRN (13:44)
[2017-09-06 17:59] VITALS: BP 119/68; PULSE 79; RESP 17; TEMP 97.5; O2SAT 97
[2017-09-06] MEDS: QUEtiapine FUMARATE 100 MG TAB PO SCH (20:28)
[2017-09-07] MEDS: MESALAMINE HD 800 MG DELAYED RELEASE TAB PO SCH ×3 (05:53→21:23)
[2017-09-07 06:18] VITALS: BP 120/72; PULSE 93; RESP 18; TEMP 97.1; O2SAT 100
[2017-09-07] MEDS: DIVALPROEX SODIUM E.R. 250 MG TAB PO SCH (08:35)
[2017-09-07] MEDS: POTASSIUM CHLORIDE 10 MEQ CAP PO SCH (08:35)
[2017-09-07] MEDS: QUEtiapine FUMARATE 100 MG TAB PO SCH ×2 (08:35→21:23)
[2017-09-07] MEDS: MAGNESIUM OXIDE 400 MG TAB PO SCH (08:37)
[2017-09-07] MEDS: NICOTINE 21 MG/24 HR PATCH T-DERMAL SCH (09:00)
[2017-09-07] MEDS: NYSTATIN 100,000 UNIT/GM CREAM 15 GM TOPICAL SCH ×2 (09:00→21:00)
[2017-09-07] MEDS: REMOVE OLD PATCH T-DERMAL SCH (09:00)
--- NOTE | 2017-09-07 09:04 | HHI.PYPN ---
Subjective Chief Complaint: Psychosis Remarks Reviewed electronic medical record, labs, and discussed case with staff. Follow -up was performed in the hallway. Patient's in a good mood with a euthymic affect. He reports that he slept well his appetite is been good. Staff did report that it was passed on patient had some behavioral issues last night. He is still internally stimulated and disorganized. Stated that he wanted to show me something in his room and once we got to his room he showed me a emptied urinal and was pointing to his arms. Could not do certain what he was trying to tell me. Mental Status Examination Appearance: Appropriate Consciousness: Alert Orientation: Person, Place (At least) Motor Activity: Other (no motoric abnormalities appreciated) Speech: Unremarkable Language: Other (somewhat limited but generally adequate) Fund of Knowledge: Inadequate Attention and Concentration: Easily Distracted Memory: Unremarkable Mood: Appropriate Affect: Other (childlike, presently euthymic) Thought Process & Associations: Tangential Thought Content: Other (Ongoing poverty of thought) Hallucination Type: Other (appears internally preoccupied) Delusion Type: None Suicidal Ideation: No Suicidal Plan: No Suicidal Intention: No Homicidal Ideation: No Homicidal Plan: No Homicidal Intention: No Insight: Poor Judgment: Poor Results Labs Test 09/07/17 07:58 Valproic Acid (Depakene) Level 67 MCG/ML Vitals/IOs Vital Signs Date Time Temp Pulse Resp B/P (MAP) Pulse Ox O2 Delivery O2 Flow Rate FiO2 09/07/17 06:18 97.1 93 18 120/72 (88) 100 Assessment & Plan Problem List: (1) Schizophrenia ICD Codes: F20.9 - Schizophrenia, unspecified Status: Acute (2) Intellectual disability ICD Codes: F79 - Unspecified intellectual disabilities Assessment & Plan Estimated LOS: Patient's Seroquel was recently increased by Dr. Pulido. His Depakote level came back at 67 which is therapeutic. We will continue to monitor patient on the unit. Days Justification for Cont. Inpt. Patient is to be released home with mother with outpatient follow-up once he is psychiatrically stabilized. He continues to be internally stimulated and disorganized. Staff reported acting out behaviors last night. Request HC Surrog/Guard Advoc?: Yes Problem Qualifiers (1) Schizophrenia: Qualified Codes: F20.3 - Undifferentiated schizophrenia Kanchan Medrano Sep 07, 2017 09:04
[2017-09-07] MEDS: LORazepam 1 MG TAB PO PRN (11:11)
[2017-09-07 18:12] VITALS: BP 120/62; PULSE 117; RESP 17; TEMP 98; O2SAT 97
[2017-09-08] MEDS: MESALAMINE HD 800 MG DELAYED RELEASE TAB PO SCH ×3 (06:18→22:00)
[2017-09-08 06:19] VITALS: BP 118/65; PULSE 80; RESP 17; TEMP 97.9; O2SAT 98
[2017-09-08] MEDS: NYSTATIN 100,000 UNIT/GM CREAM 15 GM TOPICAL SCH ×2 (09:00→20:31)
[2017-09-08] MEDS: NICOTINE 21 MG/24 HR PATCH T-DERMAL SCH (09:00)
[2017-09-08] MEDS: REMOVE OLD PATCH T-DERMAL SCH (09:00)
[2017-09-08] MEDS: POTASSIUM CHLORIDE 10 MEQ CAP PO SCH (09:01)
[2017-09-08] MEDS: DIVALPROEX SODIUM E.R. 250 MG TAB PO SCH (09:01)
[2017-09-08] MEDS: QUEtiapine FUMARATE 100 MG TAB PO SCH ×3 (09:02→20:31)
[2017-09-08] MEDS: MAGNESIUM OXIDE 400 MG TAB PO SCH (09:02)
[2017-09-08] MEDS: LORazepam 1 MG TAB PO PRN (14:04)
--- NOTE | 2017-09-08 14:41 | HHI.PYPN ---
Subjective Chief Complaint: Psychosis Remarks Patient was seen and case discussed with nursing. Patient is very psychotic today. His thought process is disorganized and his paranoid believing that there is people going in and out of his room. Speech is slurred and difficult to understand. He is internally preoccupied Mental Status Examination Appearance: Appropriate Consciousness: Alert Orientation: Person, Place (At least) Motor Activity: Other (no motoric abnormalities appreciated) Speech: Unremarkable Language: Other (somewhat limited but generally adequate) Fund of Knowledge: Inadequate Attention and Concentration: Easily Distracted Memory: Unremarkable Mood: Appropriate Affect: Other (childlike, presently euthymic) Thought Process & Associations: Tangential Thought Content: Other (Ongoing poverty of thought) Hallucination Type: Other (appears internally preoccupied) Delusion Type: None Suicidal Ideation: No Suicidal Plan: No Suicidal Intention: No Homicidal Ideation: No Homicidal Plan: No Homicidal Intention: No Insight: Poor Judgment: Poor Results Vitals/IOs Vital Signs Date Time Temp Pulse Resp B/P (MAP) Pulse Ox O2 Delivery O2 Flow Rate FiO2 09/08/17 06:19 97.9 80 17 118/65 (82) 98 Assessment & Plan Problem List: (1) Schizophrenia ICD Codes: F20.9 - Schizophrenia, unspecified Status: Acute (2) Intellectual disability ICD Codes: F79 - Unspecified intellectual disabilities Assessment & Plan Increase daytime Seroquel to 100 mg p.o. 3 times daily. Total dose now is 800 mg Justification for Cont. Inpt. Patient would decompensate in a less restrictive setting Request HC Surrog/Guard Advoc?: Yes Problem Qualifiers (1) Schizophrenia: Qualified Codes: F20.3 - Undifferentiated schizophrenia Chai De Luna DO Sep 08, 2017 14:41
[2017-09-08 18:00] VITALS: BP 139/97; PULSE 101; RESP 17; TEMP 98.7; O2SAT 98
[2017-09-09] MEDS: MESALAMINE HD 800 MG DELAYED RELEASE TAB PO SCH ×3 (06:00→21:25)
[2017-09-09 06:18] VITALS: BP 121/57; PULSE 100; RESP 16; TEMP 98
[2017-09-09] MEDS: NICOTINE 21 MG/24 HR PATCH T-DERMAL SCH (09:00)
[2017-09-09] MEDS: REMOVE OLD PATCH T-DERMAL SCH (09:00)
[2017-09-09] MEDS: NYSTATIN 100,000 UNIT/GM CREAM 15 GM TOPICAL SCH ×2 (09:00→20:28)
[2017-09-09] MEDS: MAGNESIUM OXIDE 400 MG TAB PO SCH (09:46)
[2017-09-09] MEDS: POTASSIUM CHLORIDE 10 MEQ CAP PO SCH (09:46)
[2017-09-09] MEDS: QUEtiapine FUMARATE 100 MG TAB PO SCH ×4 (09:46→20:28)
[2017-09-09] MEDS: DIVALPROEX SODIUM E.R. 250 MG TAB PO SCH (09:47)
--- NOTE | 2017-09-09 13:41 | HHI.PYPN ---
Subjective Chief Complaint: Psychosis Remarks Patient was seen and case discussed with nursing. Patient is slightly more intelligible today. He is less alert and we discussed this plans of cutting the yard and fixing a bike that he found after discharge. Thought process though remains loose and he is easily frustrated. Patient was yelling earlier when he had trouble dialing the area code on the phone. Seroquel was increased yesterday and is tolerating it well Mental Status Examination Appearance: Appropriate Consciousness: Alert Orientation: Person, Place (At least) Motor Activity: Other (no motoric abnormalities appreciated) Speech: Unremarkable Language: Other (somewhat limited but generally adequate) Fund of Knowledge: Inadequate Attention and Concentration: Easily Distracted Memory: Unremarkable Mood: Appropriate Affect: Other (childlike, presently euthymic) Thought Process & Associations: Tangential Thought Content: Bizarre thinking, Racing thoughts Hallucination Type: Other (appears internally preoccupied) Delusion Type: None Suicidal Ideation: No Suicidal Plan: No Suicidal Intention: No Homicidal Ideation: No Homicidal Plan: No Homicidal Intention: No Insight: Poor Judgment: Poor Results Vitals/IOs Vital Signs Date Time Temp Pulse Resp B/P (MAP) Pulse Ox O2 Delivery O2 Flow Rate FiO2 09/09/17 06:18 98.0 100 16 121/57 (78) 09/08/17 18:00 98 Assessment & Plan Problem List: (1) Schizophrenia ICD Codes: F20.9 - Schizophrenia, unspecified Status: Acute (2) Intellectual disability ICD Codes: F79 - Unspecified intellectual disabilities Assessment & Plan Continue current treatment plan Justification for Cont. Inpt. Patient would decompensate in a less restrictive setting Request HC Surrog/Guard Advoc?: Yes Problem Qualifiers (1) Schizophrenia: Qualified Codes: F20.3 - Undifferentiated schizophrenia Chai De Luna DO Sep 09, 2017 13:41
[2017-09-09 15:39] VITALS: BP 131/64; PULSE 117; RESP 18; TEMP 98.7; O2SAT 98
[2017-09-10] MEDS: MESALAMINE HD 800 MG DELAYED RELEASE TAB PO SCH ×3 (06:00→20:53)
[2017-09-10 06:10] VITALS: BP 111/67; PULSE 96; RESP 18; TEMP 99.4; O2SAT 100
[2017-09-10] MEDS: QUEtiapine FUMARATE 100 MG TAB PO SCH ×4 (08:17→20:16)
[2017-09-10] MEDS: DIVALPROEX SODIUM E.R. 250 MG TAB PO SCH (08:17)
[2017-09-10] MEDS: NICOTINE 21 MG/24 HR PATCH T-DERMAL SCH (08:18)
[2017-09-10] MEDS: MAGNESIUM OXIDE 400 MG TAB PO SCH (08:18)
[2017-09-10] MEDS: REMOVE OLD PATCH T-DERMAL SCH (08:18)
[2017-09-10] MEDS: LORazepam 1 MG TAB PO PRN ×2 (08:18→20:56)
[2017-09-10] MEDS: POTASSIUM CHLORIDE 10 MEQ CAP PO SCH (08:22)
[2017-09-10] MEDS: NYSTATIN 100,000 UNIT/GM CREAM 15 GM TOPICAL SCH ×2 (08:33→20:16)
--- NOTE | 2017-09-10 13:21 | HHI.PYPN ---
Subjective Chief Complaint: Psychosis Remarks Patient seen and examined with nurse. Chart reviewed. Patient's Seroquel was titrated over the weekend to 800 mg total daily dose. Depakote level 67 on 1250 mg daily of Depakote. Case discussed with nursing staff. Patient was agitated this morning and threw breakfast tray; received Ativan PO. On my exam , patient remains quite childlike. When asked about episode with tray this morning, patient insists that this was in response to provocation by a peer, but staff did not note any such provocation. No SI/HI. No side effects from medications. No physical complaints. Review of Systems ROS Limitations: Poor Historian Except as stated in HPI: all other systems reviewed are Neg Mental Status Examination Appearance: Appropriate Consciousness: Alert Orientation: Person, Place (At least) Motor Activity: Other (No abnormal motor movements noted.) Speech: Unremarkable Language: Other (somewhat limited but generally adequate) Fund of Knowledge: Inadequate Attention and Concentration: Easily Distracted Memory: Unremarkable Mood: Appropriate Affect: Other (childlike) Thought Process & Associations: Tangential Thought Content: Bizarre thinking Hallucination Type: None Delusion Type: None Suicidal Ideation: No Suicidal Plan: No Suicidal Intention: No Homicidal Ideation: No Homicidal Plan: No Homicidal Intention: No Insight: Poor Judgment: Poor Results Labs Labs reviewed. Vitals/IOs Vital Signs Date Time Temp Pulse Resp B/P (MAP) Pulse Ox O2 Delivery O2 Flow Rate FiO2 09/10/17 06:10 99.4 96 18 111/67 (82) 100 Assessment & Plan Problem List: (1) Schizophrenia ICD Codes: F20.9 - Schizophrenia, unspecified Status: Acute (2) Intellectual disability ICD Codes: F79 - Unspecified intellectual disabilities Assessment & Plan Titrate Depakote to 1500mg daily to manage impulsiveness and associated behaviors. Plan for Depakote level later in the week. Continue Seroquel as ordered. Continue to monitor on inpatient unit. Continue other care as ordered. Justification for Cont. Inpt. Med changes. Risk for decompensation in less restrictive environment. Discharge Planning Pending psychiatric stabilization. Possible discharge later in the week. Request HC Surrog/Guard Advoc?: Yes Problem Qualifiers (1) Schizophrenia: Qualified Codes: F20.3 - Undifferentiated schizophrenia Shine Pulido MD Sep 10, 2017 13:21
[2017-09-10 16:45] VITALS: BP 131/79; PULSE 119; RESP 18; TEMP 98.6; O2SAT 100
[2017-09-11 06:12] VITALS: BP 123/68; PULSE 84; RESP 18; TEMP 97.3
[2017-09-11] MEDS: POTASSIUM CHLORIDE 10 MEQ CAP PO SCH (08:21)
[2017-09-11] MEDS: QUEtiapine FUMARATE 100 MG TAB PO SCH ×4 (08:21→20:43)
[2017-09-11] MEDS: DIVALPROEX SODIUM E.R. 250 MG TAB PO SCH (08:22)
[2017-09-11] MEDS: MAGNESIUM OXIDE 400 MG TAB PO SCH (08:22)
[2017-09-11] MEDS: NYSTATIN 100,000 UNIT/GM CREAM 15 GM TOPICAL SCH ×2 (08:23→20:44)
[2017-09-11] MEDS: REMOVE OLD PATCH T-DERMAL SCH (09:00)
[2017-09-11] MEDS: NICOTINE 21 MG/24 HR PATCH T-DERMAL SCH (09:00)
--- NOTE | 2017-09-11 13:24 | HHI.PYPN ---
Subjective Chief Complaint: Psychosis Remarks Patient seen and examined. Chart reviewed. Case discussed with nursing staff who notes that the patient was somewhat dysphoric overnight but is back to his normal childlike, euthymic self this morning. Case discussed in treatment team. On my examination today, the patient is in good spirits. He denies any SI, HI or AVH. Regarding his dysphoria yesterday evening, the patient says that he was upset because he was not given any yonny seema when he asked for it. He says that he subsequently apologized for being upset. He denies side effects from medications. No acute physical complaints. I spoke with patient's mother today. She reports that she plans to visit with patient this evening to assess his progress with possible plan for discharge home tomorrow. Review of Systems ROS Limitations: Poor Historian Except as stated in HPI: all other systems reviewed are Neg Mental Status Examination Appearance: Appropriate Consciousness: Alert Orientation: Person, Place Motor Activity: Other (No motor abnormalities noted) Speech: Unremarkable Language: Other (Somewhat limited) Fund of Knowledge: Inadequate Attention and Concentration: Easily Distracted Memory: Unremarkable Mood: Appropriate Affect: Euthymic (Childlike) Thought Process & Associations: Circumstantial Thought Content: Bizarre thinking Hallucination Type: None Delusion Type: None Suicidal Ideation: No Suicidal Plan: No Suicidal Intention: No Homicidal Ideation: No Homicidal Plan: No Homicidal Intention: No Insight: Poor Judgment: Poor Results Labs Labs reviewed Vitals/IOs Vital Signs Date Time Temp Pulse Resp B/P (MAP) Pulse Ox O2 Delivery O2 Flow Rate FiO2 09/11/17 06:12 97.3 84 18 123/68 (86) 09/10/17 16:45 100 Assessment & Plan Problem List: (1) Schizophrenia ICD Codes: F20.9 - Schizophrenia, unspecified Status: Acute (2) Intellectual disability ICD Codes: F79 - Unspecified intellectual disabilities Assessment & Plan Patient received first increased dose of Depakote this morning. Continue Depakote as ordered. Plan for a Depakote level later in the week. Continue other psychotropics as ordered. Continue to monitor on the inpatient unit. Continue other medications and care as ordered. Justification for Cont. Inpt. Risk for decompensation in less restrictive environment. Discharge Planning Possible discharge home tomorrow pending mother's visit with the patient this evening Request HC Surrog/Guard Advoc?: Yes Problem Qualifiers (1) Schizophrenia: Qualified Codes: F20.3 - Undifferentiated schizophrenia Shine Pulido MD Sep 11, 2017 13:24
[2017-09-11] MEDS: MESALAMINE HD 800 MG DELAYED RELEASE TAB PO SCH ×2 (13:45→20:43)
[2017-09-11 17:22] VITALS: BP 135/66; PULSE 107; RESP 19; TEMP 99.1; O2SAT 98
[2017-09-12] MEDS: MESALAMINE HD 800 MG DELAYED RELEASE TAB PO SCH ×2 (05:36→14:00)
[2017-09-12 05:43] VITALS: BP 125/76; PULSE 106; RESP 18; TEMP 96.6; O2SAT 97
[2017-09-12] MEDS: MAGNESIUM OXIDE 400 MG TAB PO SCH (08:31)
[2017-09-12] MEDS: DIVALPROEX SODIUM E.R. 250 MG TAB PO SCH (08:31)
[2017-09-12] MEDS: QUEtiapine FUMARATE 100 MG TAB PO SCH ×2 (08:32→13:00)
[2017-09-12] MEDS: POTASSIUM CHLORIDE 10 MEQ CAP PO SCH (08:32)
[2017-09-12] MEDS: NYSTATIN 100,000 UNIT/GM CREAM 15 GM TOPICAL SCH (08:32)
[2017-09-12] MEDS: REMOVE OLD PATCH T-DERMAL SCH (09:00)
[2017-09-12] MEDS: NICOTINE 21 MG/24 HR PATCH T-DERMAL SCH (09:00)
--- NOTE | 2017-09-12 11:56 | HHI.FF ---
Face to Face Verification Diagnosis: (1) Schizophrenia (2) Intellectual disability Home Health Nursing Order: Signs/symptoms of disease process Instructions: Home psychiatric nursing Research Program Coordinator Order: To Evaluate: Living conditions/environment, Support services Order: To Provide: Long range planning, Community services I have seen patient Padma Pressley on 09/12/17. My clinical findings support the need for the requested home health care services because: Need for psychosocial assistance Impaired cognition/judgement I certify that my clinical findings support that this patient is homebound because: Impaired cognitive ability/safety Need for psychosocial assistance Shine Pulido MD Sep 12, 2017 11:56
[2017-09-12] MEDS ORDERED: POTA10CA PO (12:00)
[2017-09-12] MEDS ORDERED: MESA1TAB2 PO (12:00)
[2017-09-12] MEDS ORDERED: DIVA250ER PO (12:00)
[2017-09-12] MEDS ORDERED: MAGN400T2 PO (12:00)
[2017-09-12] MEDS ORDERED: QUET1TAB8 PO (12:00)
--- NOTE | 2017-09-12 12:00 | HHI.DS ---
Psychiatry Discharge Summary Inpatient Psychiatric care?: Yes Advance Directive: No Reason Not Provided: none provided Mental Health AdvanceDirective: No Health Care Proxy: No Admission Admission Date Aug 27, 2017 at 19:04 Admission Diagnosis: (1) Schizophrenia ICD Code: F20.9 - Schizophrenia, unspecified (2) Intellectual disability ICD Code: F79 - Unspecified intellectual disabilities Brief History Mr. Pressley is 27-year-old male with a chart history of schizophrenia and intellectual disability who presented voluntarily, brought in by mother for psychiatric evaluation. According to the ED provider notes, mother reported "that he has not been taking his evening meds, only his morning meds, and then walking all day. Patient returns to home in the morning to take his morning meds and shower. Patient's mother thinks he has not slept in 3 weeks. Patient' s mother states she has not been making sense for 3 weeks." Patient was placed under the Stewart act by the ED provider. Patient was seen by the psychiatric nurse practitioner in the ED. Reviewing the electronic medical record, I note that the patient was admitted to the inpatient unit most recently under Dr. Agustin in February 2017, and it appears that the patient has followed on an outpatient basis with Dr. Andujar with the last clinic note I see being from May,, at which time patient was on Abilify Maintena, Seroquel at bedtime and Depakote twice a day.Patient seen and examined. Chart reviewed. Case discussed with nursing staff. Patient noted to be polite and no particular behavioral problem. Case discussed with counselor. On my examination today, the patient presents as fairly childlike with silly affect. He does appears somewhat internally stimulated although he denies AVH. Grooming and hygiene seem at least fair. He seems to have some poverty of thought and answers many questions with a repetitive "yes sir, yes sir" or "no sir, no sir." Mood is "good," sleep is "good," appetite is "good." He denies any suicidal or homicidal ideation. I can elicit no paranoia, no thought insertion or withdrawal, no ideas of reference. Remainder of the psychiatric ROS is negative. Patient complains of some mild jaw stiffness but has no overt signs of dystonia or other motor abnormality or deformity involving the jaw and seems to be using it freely and without obvious discomfort. He has no acute physical complaints. Tobacco Use In Past 30 Days: 5 or More Cigarettes/Day Alcohol Use: Never Hospital Course Patient was admitted to a locked, inpatient psychiatric unit. A GI consultation was obtained as the patient produced an object early in his stay that he said had been in his rectum. Appropriate precautions were in place throughout patient's hospital stay. Patient was seen and examined on the unit by psychiatry and also visited by counselor. Psychotropic medications were adjusted. Patient had improvement in presenting psychiatric symptoms during the course of his hospital stay. Behavior improved with the benefit of psychopharmacologic treatment. There was no evidence of any suicidality or homicidality on the inpatient unit. Collateral information was obtained from the patient's mother. On the day of discharge: Patient seen and examined with nurse. Chart reviewed. Case discussed with nursing staff. No behavioral issues noted overnight. Case discussed with counselor. On my examination today , the patient is in good spirits. He is hopeful for discharge from the inpatient psychiatric unit today. He denies any suicidal or homicidal ideation , intent or plan and contracts for safety. Mood is good and I can elicit no depressive or hypomanic/manic symptoms. He denies any audiovisual hallucinations. I can elicit no delusional material. Thought process seems more organized today. Denies side effects from medications. No physical complaints. I have obtained collateral information from the patient's mother on the day of discharge. She visited with the patient last night. She is comfortable receiving the patient home today. I have reviewed patient's discharge medication regimen with the patient's mother in detail. Suicide and violence risk assessment on day of discharge both suggest lower imminent risk from mental illness, and the patient's level of function is adequate for outpatient care. Patient does remain somewhat chronically unpredictable secondary to his intellectual disability diagnosis, but this would not improve with further inpatient psychiatric hospitalization. Patient will be discharged home today with home health care with psychiatric follow-up as arranged by counselor. Patient is also to follow up with primary care and with GI. Patient to return to psychiatric emergency room for any concerning psychiatric symptoms as part of a general safety plan. Results Blood Pressure 125 / 76 Vital Signs Date Time Temp Pulse Resp B/P (MAP) Pulse Ox O2 Delivery O2 Flow Rate FiO2 09/12/17 05:43 96.6 106 18 125/76 (92) 97 Laboratory Results Test 08/28/17 07:30 09/07/17 07:58 Cholesterol Level 114 MG/DL (120-200) HDL Cholesterol 40.1 MG/DL (40.0-60.0) Hemoglobin A1c 6.0 % (4.3-6.0) LDL Cholesterol 65 MG/DL (0-99) Triglycerides Level 45 MG/DL (42-150) Valproic Acid (Depakene) Level 67 MCG/ML (50-100) Summary of Procedures None done Imaging Last Impressions Abdomen/Pelvis CT 08/29/17 0000 Signed Impressions: Service Date/Time: Tuesday, August 29, 2017 15:10 - CONCLUSION: 1. Mural thickening in the cecum and ascending colon. Findings are nonspecific and may represent a mild colitis. 2. Very small amount of free fluid in the perirectal distribution but no findings of perforation or radiopaque foreign body. 3. Otherwise negative. Alexys Cooper MD Abdomen X-Ray 08/28/17 0000 Signed Impressions: Service Date/Time: Monday, August 28, 2017 18:40 - CONCLUSION: 1. No acute findings. Abdullahi Roberts MD Pending results at discharge: No Medications # of Antipsychotic meds at D/C: 1 Approp Antipsych med options 1 - Minimum of three failed multiple trials of monotherapy. 2 - Documented plan to taper to monotherapy due to previous use of multiple meds OR cross-taper in progress at D/C. 3 - Documentation of augmentation of Clozapine. 4 - Justification other than those listed in allowable values 1-3, document here : Discharge Discharge Date: Sep 12, 2017 Discharge Diagnosis: (1) Schizophrenia Diagnosis: Principal (Stabilized) ICD Code: F20.9 - Schizophrenia, unspecified Status: Acute (2) Intellectual disability ICD Code: F79 - Unspecified intellectual disabilities Pt Condition on Discharge: Stable Discharge Disposition: Disch w/ Home Health Serv Discharge Instructions Diet Instructions: As Tolerated, No Restrictions Activities you can perform: Weight Bearing as Duyen Scheduled Appointment: As per counselors notes New Orders: AMMONIA - 3-5 Days CBC WITH DIFF - 3-5 Days COMP MET PROF (CMP) - 3-5 Days DEPAKENE - 3-5 Days New Medications: Divalproex ER (Depakote ER) 250 Mg Juwan 1500 MG PO DAILY for Mental Health for 30 Days, #180 TAB 0 Refills Magnesium Oxide (Magnesium Oxide) 400 Mg Tab 400 MG PO DAILY for Nutritional Supplement for 30 Days, #30 TAB [address] (Mesalamine DR) 800 Mg Tab 800 MG PO Q8HR for Health for 30 Days, TAB 0 Refills Potassium Chloride ER (Potassium Chloride ER) 10 Meq Cap 10 MEQ PO DAILY for Nutritional Supplement for 30 Days, #30 CAP 0 Refills Quetiapine (Quetiapine) 100 Mg Tab 100 MG PO TID for Mental Health for 30 Days, TAB 0 Refills Continued Medications: Adalimumab 2-Pack Inj (Humira 2-Pack Inj) 10 Mg/0.2 Ml Syr 10 MG SQ Q14D, #1 KIT 0 Refills Discontinued Medications: Divalproex ER (Depakote ER) 500 Mg Juwan 500 MG PO BID for health, #60 TAB 0 Refills Mesalamine ER 24 HR (Apriso) 0.375 Gm Caper 1.5 GM PO DAILY for Ulcerative colitis, CAP 0 Refills Quetiapine (Seroquel) 400 Mg Tab 400 MG PO HS for health, #30 TAB 5 Refills [(NF) (Aripiprazole ER Inj (Abilify Maintena ER Inj))] () 400 MG IM Q28D, #1 10 Refills Discharge Time <= 30 minutes Mental Status Examination Appearance: Appropriate Consciousness: Alert Orientation: Person, Place (At least) Motor Activity: Normal gait, Other (No abnormal motor movements noted) Speech: Unremarkable Language: Other (Somewhat limited) Fund of Knowledge: Inadequate Attention and Concentration: Easily Distracted Memory: Unremarkable Mood: Appropriate Affect: Euthymic (Remains childlike) Thought Process & Associations: Circumstantial Thought Content: Appropriate Hallucination Type: None Delusion Type: None Suicidal Ideation: No Suicidal Plan: No Suicidal Intention: No Homicidal Ideation: No Homicidal Plan: No Homicidal Intention: No Insight: Poor (Chronic condition) Judgment: Poor (Chronic condition) Discharge/Advance Care Plan Health Problems: (1) Schizophrenia (2) Intellectual disability Goals to promote your health * To prevent worsening of your condition and complications * To maintain your health at the optimal level Directions to meet your goals Take your medications as prescribed Follow your dietary instruction Follow activity as directed Keep your appointments as scheduled Take your immunizations and boosters as scheduled If your symptoms worsen call your PCP, if no PCP go to Urgent Care Center or Emergency Room For 18/12 questions related to your inpatient stay or results of tests pending at discharge, please contact Dr. Shine Pulido at Smoking is Dangerous to Your Health. Avoid second hand smoking Problem Qualifiers (1) Schizophrenia: Qualified Codes: F20.3 - Undifferentiated schizophrenia Shine Pulido MD Sep 12, 2017 12:00
== END 2017-09-12 13:00 | disposition home health service (06) | DRG 885 ==
LOC: NEPJ 13:51 → NEDA 19:04 → H270 20:35
PROVIDERS: ADMIT Psychiatry & Neurology Psychiatry; ATTEND Psychiatry & Neurology Psychiatry
DX: F20.3 Undifferentiated schizophrenia (principal); K50.90 Crohn's disease, unspecified, without complications; R44.3 Hallucinations, unspecified; F79 Unspecified intellectual disabilities; F31.9 Bipolar disorder, unspecified; F41.9 Anxiety disorder, unspecified; R21 Rash and other nonspecific skin eruption; R45.87 Impulsiveness; R47.81 Slurred speech; M06.9 Rheumatoid arthritis, unspecified; F17.210 Nicotine dependence, cigarettes, uncomplicated; E87.6 Hypokalemia; D72.829 Elevated white blood cell count, unspecified; Z79.899 Other long term (current) drug therapy
CPT/HCPCS: 74018; 74177; 80048; 80053; 80061; 80164; 80307; 82140; 82550; 82552; 83036; 83735; 84443; 85025; 99285; Q0163; Q9963; Q9967

== ENCOUNTER 2017-09-25 15:32 | Emergency (ER) | payer OTHER, MEDICAID ==
[~2017-09-25] VITALS: Ht 167.6 cm; Wt 68.0 kg
[~2017-09-25 15:32] MED LIST changes: +ADAL1INJ SQ; -ARIPIPRAZOLE IM; -DEPA500T3 PO; +DIVA250ER PO; +MAGN400T2 PO; +MESA1TAB2 PO; +POTA10CA PO; +QUET1TAB8 PO; -SERO400T PO
[2017-09-25 15:35] VITALS: BP 143/68; PULSE 92; RESP 18; TEMP 98.5; O2SAT 100
[2017-09-25] MEDS ORDERED: APRI0.372 PO (15:58)
[2017-09-25] MEDS ORDERED: QUET400T PO (15:58)
[2017-09-25 17:21] LABS: AUTOMATED NEUTROPHIL # 2.4 TH/MM3 (1.8-7.7); BASOPHIL % 0.6 % (0.0-2.0); EOSINOPHIL # 0.1 TH/MM3 (0-0.4); HEMATOCRIT 41.1 % (39.0-51.0); HEMOGLOBIN 13.6 GM/DL (13.0-17.0); LYMPH % 33.1 % (9.0-44.0); LYMPHOCYTE # 1.5 TH/MM3 (1.0-4.8); MEAN CELL VOLUME 86.8 FL (80.0-100.0); MEAN CORPUSCULAR HEMOGLOBIN 28.7 PG (27.0-34.0); MEAN CORPUSCULAR HGB CONC 33.1 % (32.0-36.0); MEAN PLATELET VOLUME 7.2 FL (7.0-11.0); MONO % 9.5 % (0.0-8.0); MONOCYTE # 0.4 TH/MM3 (0-0.9); NEUT % 53.8 % (16.0-70.0); PLATELET COUNT 237 TH/MM3 (150-450); RED BLOOD COUNT 4.74 MIL/MM3 (4.50-5.90); RED CELL DISTRIBUTION WIDTH 15.2 % (11.6-17.2); WHITE BLOOD COUNT 4.4 TH/MM3 (4.0-11.0)
--- NOTE | 2017-09-25 17:29 | PD ---
HPI Chief Complaint: Psychiatric Symptoms Time Seen by Provider: 15:47 Travel History International Travel<30 days: No Contact w/Intl Traveler<30days: No Traveled to known affect area: No History of Present Illness HPI 27-year-old male presents to the emergency department requesting psychological evaluation. He is accompanied by his mother and she states his medications are not working for his bipolar and schizophrenia. He takes Depakote and Seroquel. 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 Patient denies suicidal or homicidal ideations. He denies hallucinations, but the mother states he is hearing voices because he talks to himself and others that are not there. He denies illicit drug use. Reports smoking black in miles. Denies alcohol use. Onset unknown. Duration unknown. Symptoms are moderate in severity. No known aggravating or relieving factors. Psychiatrist is [facility]. They had an appointment today and apparently the appointment was canceled and is now rescheduled for October 03. Primary care provider is Dr. Sanches. No known allergies. History of bipolar and schizophrenia. Denies other significant past medical history. Has no other medical complaints. No other modifying factors or associated signs and symptoms. PFSH Past Medical History ADHD: No Arthritis: Yes (Rheumatoid Arthritis) Asthma: No Autoimmune Disease: Yes (per hx..RA) Blood Disorders: No Anxiety: Yes Depression: Yes Heart Rhythm Problems: No Cancer: No Cardiovascular Problems: No High Cholesterol: No Chemotherapy: No Chest Pain: No Congestive Heart Failure: No COPD: No Cerebrovascular Accident: No Diabetes: No Diminished Hearing: No Endocrine: No GERD: No Genitourinary: No Headaches: No Hiatal Hernia: No Immune Disorder: Yes Implanted Vascular Access Dvce: No Kidney Stones: No Musculoskeletal: No Neurologic: No Psychiatric: Yes Reproductive: No Respiratory: No Integumentary: Yes Immunizations Current: Yes Migraines: No Radiation Therapy: No Renal Failure: No Schizophrenia: Yes Seizures: No Sickle Cell Disease: No Sleep Apnea: No Thyroid Disease: No Ulcer: Yes PNEUMOCCOCAL Vaccine (Year): 3 Past Surgical History Abdominal Surgery: No AICD: No Appendectomy: No Arteriovenous Shunt: No Cardiac Surgery: No Cholecystectomy: No Ear Surgery: No Endocrine Surgery: No Eye Surgery: No Genitourinary Surgery: No Gynecologic Surgery: No Insulin Pump: No Joint Replacement: No Oral Surgery: No Pacemaker: No Thoracic Surgery: No Other Surgery: Yes Social History Alcohol Use: No Tobacco Use: Yes (<ppd) Substance Use: No (MOTHER STATES CIGARETTES AND THC ONLY) Allergies-Medications (Allergen,Severity, Reaction): Coded Allergies: No Known Allergies (Verified Adverse Reaction, Unknown, 09/25/17) Reported Meds & Prescriptions Reported Meds & Active Scripts Active Magnesium Oxide 400 Mg Tab 400 Mg PO DAILY 30 Days Potassium Chloride ER (Potassium Chloride) 10 Meq Cap 10 Meq PO DAILY 30 Days Quetiapine (Quetiapine Fumarate) 100 Mg Tab 100 Mg PO TID 30 Days Depakote ER (Divalproex Sodium) 250 Mg Juwan 1,500 Mg PO DAILY 30 Days Reported Apriso (Mesalamine) 0.375 Gm Caper 1.5 Gm PO DAILY Quetiapine (Quetiapine Fumarate) 400 Mg Tab 400 Mg PO HS Humira 2-Pack Inj (Adalimumab 2-Pack Inj) 10 Mg/0.2 Ml Syr 10 Mg SQ Q14D Review of Systems Except as stated in HPI: all other systems reviewed are Neg Physical Exam Narrative GENERAL: Well-nourished, well-developed black male patient, in no acute distress SKIN: Warm and dry. HEAD: Atraumatic. Normocephalic. EYES: Pupils equal and round. ENT: Mucosa pink and moist. NECK: Supple. Trachea midline. CARDIOVASCULAR: Regular rate and rhythm. No murmur appreciated. RESPIRATORY: No accessory muscle use. Clear to auscultation. Breath sounds equal bilaterally. GASTROINTESTINAL: Abdomen soft, non-tender, nondistended. Hepatic and splenic margins not palpable. Bowel sounds are active 4 quadrants. MUSCULOSKELETAL: No obvious deformities. No clubbing. No cyanosis. No edema. NEUROLOGICAL: Awake and alert. Oriented 3. No obvious cranial nerve deficits. Motor grossly within normal limits. Normal speech. Moves all extremities. 5/5 strength to all extremities. PSYCHIATRIC: No delusional thought processes. No hallucinations. Data Data Last Documented VS Vital Signs Date Time Temp Pulse Resp B/P (MAP) Pulse Ox O2 Delivery O2 Flow Rate FiO2 09/25/17 15:35 98.5 92 18 143/68 (93) 100 Orders Orders Complete Blood Count With Diff (09/25/17 15:55) Comprehensive Metabolic Panel (09/25/17 15:55) Thyroid Stimulating Hormone (09/25/17 15:55) Psych Screen (09/25/17 15:55) Drug Screen, Random Urine (09/25/17 15:55) Alcohol (Ethanol) (09/25/17 15:55) Salicylates (Aspirin) (09/25/17 15:55) Tylenol (Acetaminophen) (09/25/17 15:55) Valproic Acid (Depakene) (09/25/17 16:39) Diet Regular Basic (09/25/17 Dinner) Labs Laboratory Tests Test 09/25/17 16:55 White Blood Count 4.4 TH/MM3 Red Blood Count 4.74 MIL/MM3 Hemoglobin 13.6 GM/DL Hematocrit 41.1 % Mean Corpuscular Volume 86.8 FL Mean Corpuscular Hemoglobin 28.7 PG Mean Corpuscular Hemoglobin Concent 33.1 % Red Cell Distribution Width 15.2 % Platelet Count 237 TH/MM3 Mean Platelet Volume 7.2 FL Neutrophils (%) (Auto) 53.8 % Lymphocytes (%) (Auto) 33.1 % Monocytes (%) (Auto) 9.5 % Eosinophils (%) (Auto) 3.0 % Basophils (%) (Auto) 0.6 % Neutrophils # (Auto) 2.4 TH/MM3 Lymphocytes # (Auto) 1.5 TH/MM3 Monocytes # (Auto) 0.4 TH/MM3 Eosinophils # (Auto) 0.1 TH/MM3 Basophils # (Auto) 0.0 TH/MM3 CBC Comment DIFF FINAL Differential Comment MDM Medical Decision Making Medical Screen Exam Complete: Yes Emergency Medical Condition: Yes Medical Record Reviewed: Yes Differential Diagnosis Medication adjustment, encounter for psychological evaluation, bipolar disorder , schizophrenia Narrative Course Patient presents voluntarily. Physical examination and vital signs are essentially unremarkable. Patient has no medical complaints to report. Psych screen has been ordered. If the laboratory results are unremarkable, the patient will be medically cleared for psychiatric evaluation and disposition. Diagnosis Primary Impression: Encounter for psychological evaluation Condition: Stable Remedios Wong September 25, 2017 17:29
[2017-09-25 18:04] LABS: ACETAMINOPHEN LESS THAN 2.0 MCG/ML (10.0-30.0); ALKALINE PHOSPHATASE 88 U/L (45-117); ALT (GPT) 17 U/L (12-78); AST (GOT) 22 U/L (15-37); BICARBONATE 28.7 MEQ/L (21.0-32.0); BLOOD UREA NITROGEN 10 MG/DL (7-18); CALCIUM 8.6 MG/DL (8.5-10.1); CHLORIDE 105 MEQ/L (98-107); CREATININE 0.97 MG/DL (0.60-1.30); GLOMERULAR FILTRATION RATE 112 ML/MIN (>89); GLUCOSE,RANDOM 91 MG/DL (74-106); SODIUM (NA) 139 MEQ/L (136-145); TOTAL BILIRUBIN ADULT 0.3 MG/DL (0.2-1.0); TOTAL PROTEIN 7.5 GM/DL (6.4-8.2)
[2017-09-25 22:56] VITALS: BP 140/73; PULSE 67; RESP 16; TEMP 99.1; O2SAT 100
[2017-09-26 06:00] VITALS: BP 135/77; PULSE 63; RESP 16; O2SAT 99
[2017-09-26 10:00] VITALS: BP 135/65; PULSE 93; RESP 18; TEMP 98.6; O2SAT 99
--- NOTE | 2017-09-26 10:51 | PD ---
History of Present Illness Chief Complaint: Psychiatric Symptoms Time Seen by Provider: 10:38 Travel History International Travel<30 Days: No Contact w/Intl Traveler<30days: No Known affected area: No Legal Status Legal Status: Voluntary History of Present Illness: This is a 27-year-old single, -[place] male who presents voluntarily to this facility with reports of increased pacing. Patient is known to this facility with his most recent inpatient admission being from August 27 - August. His mother brought him and reporting that she "does not feel the medication is working". She states that he is still pacing, talking to himself , and roaming the streets at night. Reviewed electronic medical record, labs, discussed case with staff. Patient was evaluated in his room in j pod. Patient is awake, alert, and oriented. His speech is clear, logical, and organized. He denies having any suicidal ideations, homicidal ideations, auditory or visual hallucinations. I can elicit no delusional material. Patient is cooperative throughout the interview. His mood is good his affect is euthymic. He responds appropriately to all questions. Spoke with his mother on the phone who states that she feels his medicine is not working. Consulted with Dr. Andujar, who is his outpatient provider, with whom he has an appointment on October 03. She concurs that patient does not meet inpatient admission criteria and should be handled outpatient at his next appointment. PFSH Past Medical History ADHD: No Arthritis: Yes (Rheumatoid Arthritis) Asthma: No Autoimmune Disease: Yes (per hx..RA) Blood Disorders: No Anxiety: Yes Depression: Yes Heart Rhythm Problems: No Cancer: No Cardiovascular Problems: No High Cholesterol: No Chemotherapy: No Chest Pain: No Congestive Heart Failure: No COPD: No Cerebrovascular Accident: No Diabetes: No Diminished Hearing: No Endocrine: No GERD: No Genitourinary: No Headaches: No Hiatal Hernia: No Immune Disorder: Yes Implanted Vascular Access Dvce: No Kidney Stones: No Musculoskeletal: No Neurologic: No Psychiatric: Yes Reproductive: No Respiratory: No Integumentary: Yes Immunizations Current: Yes Migraines: No Radiation Therapy: No Renal Failure: No Schizophrenia: Yes Seizures: No Sickle Cell Disease: No Sleep Apnea: No Thyroid Disease: No Ulcer: Yes PNEUMOCCOCAL Vaccine (Year): 3 Past Surgical History Abdominal Surgery: No AICD: No Appendectomy: No Arteriovenous Shunt: No Cardiac Surgery: No Cholecystectomy: No Ear Surgery: No Endocrine Surgery: No Eye Surgery: No Genitourinary Surgery: No Gynecologic Surgery: No Insulin Pump: No Joint Replacement: No Oral Surgery: No Pacemaker: No Thoracic Surgery: No Other Surgery: Yes Psychiatric History Psychiatric History Extensive last inpatient admission was at this facility from August 27 - August. Hx Psychiatric Treatment: Patient has had multiple inpatient admissions with a history of treatment for Schizophrenia, paranoid type. History of Inpatient Treatment: Yes Guns or firearms in home: No Social History Hx Alcohol Use: No Hx Tobacco Use: Yes (<ppd) Hx Substance Use: No Substance Use Type: Marijuana Other Substances Used: BLACK AND MILDS Hx of Substance Use Treatment: No Allergies-Medications (Allergen,Severity, Reaction): Coded Allergies: No Known Allergies (Verified Adverse Reaction, Unknown, 09/25/17) Reported Meds & Prescriptions Reported Meds & Active Scripts Active Magnesium Oxide 400 Mg Tab 400 Mg PO DAILY 30 Days Potassium Chloride ER (Potassium Chloride) 10 Meq Cap 10 Meq PO DAILY 30 Days Quetiapine (Quetiapine Fumarate) 100 Mg Tab 100 Mg PO TID 30 Days Depakote ER (Divalproex Sodium) 250 Mg Juwan 1,500 Mg PO DAILY 30 Days Reported Apriso (Mesalamine) 0.375 Gm Caper 1.5 Gm PO DAILY Quetiapine (Quetiapine Fumarate) 400 Mg Tab 400 Mg PO HS Humira 2-Pack Inj (Adalimumab 2-Pack Inj) 10 Mg/0.2 Ml Syr 10 Mg SQ Q14D Mental Status Examination Appearance: Appropriate Consciousness: Alert Orientation: Person, Place (At least) Motor Activity: Normal gait Speech: Unremarkable Language: Adequate Fund of Knowledge: Adequate Attention and Concentration: Adequate Memory: Unremarkable Mood: Appropriate Affect: Appropriate Thought Process & Associations: Intact Thought Content: Appropriate Hallucination Type: None Delusion Type: None Suicidal Ideation: No Suicidal Plan: No Suicidal Intention: No Homicidal Ideation: No Homicidal Plan: No Homicidal Intention: No Insight: Fair Judgment: Adequate MDM Medical Decision Making Medical Record Reviewed: Yes Assessment/Plan This is a 27-year-old single, -[place] male who is brought in by his mother to this facility for reportedly pacing and "talking to himself". This patient is well-known to this facility with his most recent inpatient admission ending on September 15. Upon examination this morning patient is alert and oriented. His speech is clear, organized, and logical. His mood is good his affect is euthymic. He denies feeling suicidal or homicidal. He denies having any auditory or visual hallucinations. Consult with Dr. Gaffney who treats him outpatient. His next appointment with her is October 03. She concurs that he does not meet inpatient assessment and feels he can safely wait for his follow-up appointment. Advised his mother of this decision who did seem less than pleased. Patient will be discharged to home with instructions to keep his follow-up appointment. He will be advised to return this facility if he develops suicidal ideation or his condition worsens. Orders Orders Complete Blood Count With Diff (09/25/17 15:55) Comprehensive Metabolic Panel (09/25/17 15:55) Thyroid Stimulating Hormone (09/25/17 15:55) Psych Screen (09/25/17 15:55) Drug Screen, Random Urine (09/25/17 15:55) Alcohol (Ethanol) (09/25/17 15:55) Salicylates (Aspirin) (09/25/17 15:55) Tylenol (Acetaminophen) (09/25/17 15:55) Valproic Acid (Depakene) (09/25/17 16:39) Diet Regular Basic (09/25/17 Dinner) Diet Regular Basic (09/26/17 Breakfast) Diet Regular Basic (09/26/17 Lunch) Results Vital Signs Date Time Temp Pulse Resp B/P (MAP) Pulse Ox O2 Delivery O2 Flow Rate FiO2 09/26/17 06:00 63 16 135/77 (96) 99 Room Air 09/25/17 22:56 99.1 67 16 140/73 (95) 100 Room Air 09/25/17 15:35 98.5 92 18 143/68 (93) 100 Laboratory Tests Test 09/25/17 16:55 White Blood Count 4.4 Red Blood Count 4.74 Hemoglobin 13.6 Hematocrit 41.1 Mean Corpuscular Volume 86.8 Mean Corpuscular Hemoglobin 28.7 Mean Corpuscular Hemoglobin Concent 33.1 Red Cell Distribution Width 15.2 Platelet Count 237 Mean Platelet Volume 7.2 Neutrophils (%) (Auto) 53.8 Lymphocytes (%) (Auto) 33.1 Monocytes (%) (Auto) 9.5 Eosinophils (%) (Auto) 3.0 Basophils (%) (Auto) 0.6 Neutrophils # (Auto) 2.4 Lymphocytes # (Auto) 1.5 Monocytes # (Auto) 0.4 Eosinophils # (Auto) 0.1 Basophils # (Auto) 0.0 CBC Comment DIFF FINAL Differential Comment Blood Urea Nitrogen 10 Creatinine 0.97 Random Glucose 91 Total Protein 7.5 Albumin 3.0 Calcium Level 8.6 Alkaline Phosphatase 88 Aspartate Amino Transf (AST/SGOT) 22 Alanine Aminotransferase (ALT/SGPT) 17 Total Bilirubin 0.3 Sodium Level 139 Potassium Level 4.4 Chloride Level 105 Carbon Dioxide Level 28.7 Anion Gap 5 Estimat Glomerular Filtration Rate 112 Thyroid Stimulating Hormone 3rd Gen 1.490 Salicylates Level LESS THAN 1.7 Urine Opiates Screen NEG Acetaminophen Level LESS THAN 2.0 Urine Barbiturates Screen NEG Valproic Acid (Depakene) Level 85 Urine Amphetamines Screen NEG Urine Benzodiazepines Screen NEG Urine Cocaine Screen NEG Urine Cannabinoids Screen NEG Ethyl Alcohol Level LESS THAN 3 Diagnosis Primary Impression: Adjustment disorder Psychiatrically Cleared: Yes Condition: Stable Kanchan Medrano September 26, 2017 10:51
--- NOTE | 2017-09-26 10:59 | PD ---
Physical Exam Date Seen by Provider: September 26, 2017 Time Seen by Provider: 10:58 Narrative 27-year-old -[place] male previously medically cleared for psychiatric evaluation with increased psychiatric symptoms according to his mom, has been seen by psychiatric staff and deemed psychiatrically stable for discharge this time. Patient remains medically stable for discharge. Follow-up will be based on the psychiatric note. Data Data Last Documented VS Vital Signs Date Time Temp Pulse Resp B/P (MAP) Pulse Ox O2 Delivery O2 Flow Rate FiO2 09/26/17 06:00 63 16 135/77 (96) 99 Room Air 09/25/17 22:56 99.1 Orders Orders Complete Blood Count With Diff (09/25/17 15:55) Comprehensive Metabolic Panel (09/25/17 15:55) Thyroid Stimulating Hormone (09/25/17 15:55) Psych Screen (09/25/17 15:55) Drug Screen, Random Urine (09/25/17 15:55) Alcohol (Ethanol) (09/25/17 15:55) Salicylates (Aspirin) (09/25/17 15:55) Tylenol (Acetaminophen) (09/25/17 15:55) Valproic Acid (Depakene) (09/25/17 16:39) Diet Regular Basic (09/25/17 Dinner) Diet Regular Basic (09/26/17 Breakfast) Diet Regular Basic (09/26/17 Lunch) Labs Laboratory Tests Test 09/25/17 16:55 White Blood Count 4.4 TH/MM3 Red Blood Count 4.74 MIL/MM3 Hemoglobin 13.6 GM/DL Hematocrit 41.1 % Mean Corpuscular Volume 86.8 FL Mean Corpuscular Hemoglobin 28.7 PG Mean Corpuscular Hemoglobin Concent 33.1 % Red Cell Distribution Width 15.2 % Platelet Count 237 TH/MM3 Mean Platelet Volume 7.2 FL Neutrophils (%) (Auto) 53.8 % Lymphocytes (%) (Auto) 33.1 % Monocytes (%) (Auto) 9.5 % Eosinophils (%) (Auto) 3.0 % Basophils (%) (Auto) 0.6 % Neutrophils # (Auto) 2.4 TH/MM3 Lymphocytes # (Auto) 1.5 TH/MM3 Monocytes # (Auto) 0.4 TH/MM3 Eosinophils # (Auto) 0.1 TH/MM3 Basophils # (Auto) 0.0 TH/MM3 CBC Comment DIFF FINAL Differential Comment Blood Urea Nitrogen 10 MG/DL Creatinine 0.97 MG/DL Random Glucose 91 MG/DL Total Protein 7.5 GM/DL Albumin 3.0 GM/DL Calcium Level 8.6 MG/DL Alkaline Phosphatase 88 U/L Aspartate Amino Transf (AST/SGOT) 22 U/L Alanine Aminotransferase (ALT/SGPT) 17 U/L Total Bilirubin 0.3 MG/DL Sodium Level 139 MEQ/L Potassium Level 4.4 MEQ/L Chloride Level 105 MEQ/L Carbon Dioxide Level 28.7 MEQ/L Anion Gap 5 MEQ/L Estimat Glomerular Filtration Rate 112 ML/MIN Thyroid Stimulating Hormone 3rd Gen 1.490 uIU/ML Salicylates Level LESS THAN 1.7 MG/DL Urine Opiates Screen NEG Acetaminophen Level LESS THAN 2.0 MCG/ML Urine Barbiturates Screen NEG Valproic Acid (Depakene) Level 85 MCG/ML Urine Amphetamines Screen NEG Urine Benzodiazepines Screen NEG Urine Cocaine Screen NEG Urine Cannabinoids Screen NEG Ethyl Alcohol Level LESS THAN 3 MG/DL MDM Medical Record Reviewed: Yes Supervised Visit with [facility]: Yes Narrative Course 27-year-old -[place] male previously medically cleared for psychiatric evaluation with increased psychiatric symptoms according to his mom, has been seen by psychiatric staff and deemed psychiatrically stable for discharge this time. Patient remains medically stable for discharge. Follow-up will be based on the psychiatric note. Diagnosis Primary Impression: Adjustment disorder Patient Instructions: General Instructions Disposition: 01 DISCHARGE HOME Condition: Stable Farshad Ferrari September 26, 2017 10:59
[2017-09-26] MEDS ORDERED: DIVALPROEX SODIUM E.R. 500 MG TAB PO STA (12:03)
[2017-09-26] MEDS ORDERED: QUEtiapine FUMARATE 100 MG TAB PO ONE (12:15)
== END 2017-09-26 13:12 | disposition home or self-care (01) ==
LOC: NEPD 15:32 → NEPJ 09-26 13:12
DX: F43.20 Adjustment disorder, unspecified (principal); F20.9 Schizophrenia, unspecified; F17.210 Nicotine dependence, cigarettes, uncomplicated; M06.9 Rheumatoid arthritis, unspecified; Z79.899 Other long term (current) drug therapy
CPT/HCPCS: 80053; 80164; 80307; 84443; 85025; 99283

== ENCOUNTER 2018-01-15 18:13 | Inpatient (IN) ==
--- NOTE | 2018-01-15 18:40 | ED ---
HPI General Chief Complaint: Psychiatric Symptoms Stated Complaint: [facility] Time Seen by Provider: 01/15/18 18:34 History of Present Illness HPI Narrative: Patient comes to the emergency department under [place] act by police. Patient was reportedly being released from half-way today when he was acting "odd" and appeared not be able to understand his instructions. Patient has a history of schizophrenia and states he has not been able to his meds since being in half-way. Patient is he normally takes them regularly. Patient denies any chest pain, shortness breath, fevers, headaches, or other concerns. There are no modifying factors. Related Data Home Medications Medication Instructions Recorded Confirmed Seroquel 100 mg PO DAILY 01/15/18 01/15/18 Seroquel 400 mg PO HS 01/15/18 01/15/18 Allergies Allergy/AdvReac Type Severity Reaction Status Date / Time No Known Allergies AdvReac Unknown Uncoded 09/25/17 15:35 Review of Systems ROS: all other systems reviewed are negative [facility] Medical History Medical History Patient denies medical problems (Acute) Surgical History Surgical History No history of previous surgery (Acute) Social History Social History Substance History: No History of Abuse Smoking Status: Unknown if ever smoked How Often Do You Have a Drink Containing Alcohol: Never Recent Travel in [facility] within the Last 8 Weeks: No Recent Out of Country Travel within the Last 8 Weeks: No Exam Narrative Exam Narrative: GENERAL: Well-developed, well nourished, in no acute distress, and non-ill appearing. SKIN: Focused skin assessment warm and dry. HEAD: Atraumatic. Normocephalic. EYES: Pupils equal and round. EOMI. No scleral icterus. No injection or drainage. ENT: No nasal bleeding or discharge. Mucous membranes pink and moist. NECK: Trachea midline. Supple. No nuclear rigidity. CARDIOVASCULAR: Regular rate and rhythm. No murmur appreciated. RESPIRATORY: No accessory muscle use. No respiratory distress. Clear to auscultation. Breath sounds equal bilaterally. MUSCULOSKELETAL: No obvious deformities. No clubbing. No cyanosis. No edema. Full range of motion. NEUROLOGICAL: Awake and alert. No obvious cranial nerve deficits. Motor grossly within normal limits. Normal speech. PSYCHIATRIC: Appropriate mood and affect; insight and judgment normal. Course Initial Documented Vital Signs Temperature 99.4 F 08/21/18 18:32 Pulse Rate 83 01/15/18 18:32 Respiratory Rate 20 01/15/18 18:32 Blood Pressure 188/84 H 01/15/18 18:32 Pulse Oximetry 100 01/15/18 18:32 Last Documented Vital Signs Temperature 97.9 F 01/16/18 05:48 Pulse Rate 92 H 01/16/18 05:48 Respiratory Rate 17 01/16/18 05:48 Blood Pressure 132/76 01/16/18 05:48 Pulse Oximetry 99 01/16/18 05:48 Medical Decision Making MDM Narrative Medical decision making narrative: Patient seen and examined. Initial laboratory studies were ordered. Patient was signed out to Abdullahi Simon PA-C at the end of my shift pending lab results. Please see his documentation for final diagnosis and disposition. Medical Screen Exam Complete: Yes Emergency Medical Condition: Yes Lab Data Result diagrams: 01/15/18 18:35 01/15/18 18:35 Lab Results 01/15/18 01/15/18 01/15/18 Range/Units 18:35 18:35 18:35 WBC 11.1 H (4.0-11.0) th/mm3 RBC 5.22 (4.50-5.90) mil/mm3 Hgb 15.3 (13.0-17.0) gm/dL Hct 45.3 (39.0-51.0) % MCV 86.7 (80.0-100.0) fL MCH 29.2 (27.0-34.0) pg MCHC 33.7 (32.0-36.0) % RDW 13.7 (11.6-17.2) % Plt Count 359 (150-450) th/mm3 MPV 6.9 L (7.0-11.0) fL Neut % (Auto) 67.2 (16.0-70.0) % Lymph % (Auto) 23.5 (9.0-44.0) % [place] % (Auto) 8.3 H (0.0-8.0) % Eos % (Auto) 0.6 (0.0-4.0) % Baso % (Auto) 0.4 (0.0-2.0) % Neut # (Auto) 7.5 (1.8-7.7) th/mm3 Lymph # (Auto) 2.6 (1.0-4.8) th/mm3 [place] # (Auto) 0.9 (0.0-0.9) th/mm3 Eos # (Auto) 0.1 (0.0-0.4) th/mm3 Baso # (Auto) 0.0 (0.0-0.2) th/mm3 WBC Differential . Differential Comment Auto diff final Sodium 140 (136-145) meq/L Potassium 3.4 L (3.5-5.1) meq/L Chloride 103 (98-107) meq/L Carbon Dioxide 25.1 (21.0-32.0) meq/L Anion Gap 12 (5-15) meq/L BUN 9 (7-18) mg/dL Creatinine 0.99 (0.60-1.30) mg/dL Estimated GFR Greater than 89 (>89) mL/min Random Glucose 98 (74-106) mg/dL Calcium 9.1 (8.5-10.1) mg/dL Total Bilirubin 0.3 (0.2-1.0) mg/dL AST 32 (15-37) U/L ALT 35 (12-78) U/L Alkaline Phosphatase 135 H (45-117) U/L Total Protein 8.9 H (6.4-8.2) g/dL Albumin 3.6 (3.4-5.0) g/dL TSH 1.670 (0.358-3.740) uIU/mL Salicylates Less than 1.7 L (2.8-20.0) mg/dL Urine Opiates Screen (Neg) Acetaminophen Less than 2.0 L (10.0-30.0) mcg/mL Ur Barbiturates Screen (Neg) Ur Amphetamines Screen (Neg) U Benzodiazepines Scrn (Neg) Urine Cocaine Screen (Neg) U Cannabinoids Screen (Neg) Serum Alcohol Less than 3 (0-5) mg/dL 01/15/18 Range/Units 18:45 WBC (4.0-11.0) th/mm3 RBC (4.50-5.90) mil/mm3 Hgb (13.0-17.0) gm/dL Hct (39.0-51.0) % MCV (80.0-100.0) fL MCH (27.0-34.0) pg MCHC (32.0-36.0) % RDW (11.6-17.2) % Plt Count (150-450) th/mm3 MPV (7.0-11.0) fL Neut % (Auto) (16.0-70.0) % Lymph % (Auto) (9.0-44.0) % [place] % (Auto) (0.0-8.0) % Eos % (Auto) (0.0-4.0) % Baso % (Auto) (0.0-2.0) % Neut # (Auto) (1.8-7.7) th/mm3 Lymph # (Auto) (1.0-4.8) th/mm3 [place] # (Auto) (0.0-0.9) th/mm3 Eos # (Auto) (0.0-0.4) th/mm3 Baso # (Auto) (0.0-0.2) th/mm3 WBC Differential Differential Comment Sodium (136-145) meq/L Potassium (3.5-5.1) meq/L Chloride (98-107) meq/L Carbon Dioxide (21.0-32.0) meq/L Anion Gap (5-15) meq/L BUN (7-18) mg/dL Creatinine (0.60-1.30) mg/dL Estimated GFR (>89) mL/min Random Glucose (74-106) mg/dL Calcium (8.5-10.1) mg/dL Total Bilirubin (0.2-1.0) mg/dL AST (15-37) U/L ALT (12-78) U/L Alkaline Phosphatase (45-117) U/L Total Protein (6.4-8.2) g/dL Albumin (3.4-5.0) g/dL TSH (0.358-3.740) uIU/mL Salicylates (2.8-20.0) mg/dL Urine Opiates Screen Neg (Neg) Acetaminophen (10.0-30.0) mcg/mL Ur Barbiturates Screen Neg (Neg) Ur Amphetamines Screen Neg (Neg) U Benzodiazepines Scrn Neg (Neg) Urine Cocaine Screen Neg (Neg) U Cannabinoids Screen Neg (Neg) Serum Alcohol (0-5) mg/dL Discharge Plan Discharge Disposition Patient Disposition: 30 Still Patient Physicians Team ED Provider: Carol Harp ED Midlevel Provider: Dagoberto Fine Primary Care Provider: UNKNOWN, Attending Provider: Shine Pulido Other Providers: Jose Rr,ZANDER High Service Status ED Status: Left Department Discharge Information Discharge Date/Time: 01/15/18 22:14
[2018-01-15 19:30] LABS: Baso % (Auto) 0.4 % (0.0-2.0); Eos # (Auto) 0.1 th/mm3 (0.0-0.4); Eos % (Auto) 0.6 % (0.0-4.0); Hematocrit 45.3 % (39.0-51.0); Hemoglobin 15.3 gm/dL (13.0-17.0); Lymph # (Auto) 2.6 th/mm3 (1.0-4.8); Lymph % (Auto) 23.5 % (9.0-44.0); Mean Corpuscular HGB Conc 33.7 % (32.0-36.0); Mean Corpuscular Hemoglobin 29.2 pg (27.0-34.0); Mean Corpuscular Volume 86.7 fL (80.0-100.0); Mean Platelet Volume 6.9 fL (7.0-11.0); Mono # (Auto) 0.9 th/mm3 (0.0-0.9); Mono % (Auto) 8.3 % (0.0-8.0); Neut # (Auto) 7.5 th/mm3 (1.8-7.7); Neut % (Auto) 67.2 % (16.0-70.0); Platelet Count 359 th/mm3 (150-450); Red Blood Count 5.22 mil/mm3 (4.50-5.90); Red Cell Distribution Width 13.7 % (11.6-17.2); White Blood Count 11.1 th/mm3 (4.0-11.0)
[2018-01-15 19:30] LABS: Amphetamine Screen,Urine Neg (Neg); Barbiturate Screen,Urine Neg (Neg); Cannabinoid Screen,Urine Neg (Neg); Cocaine Screen,Urine Neg (Neg)
[2018-01-15 19:40] LABS: Albumin 3.6 g/dL (3.4-5.0); Anion Gap 12 meq/L (5-15); Aspartate Aminotransferase 32 U/L (15-37); Blood Urea Nitrogen 9 mg/dL (7-18); Calcium 9.1 mg/dL (8.5-10.1); Carbon Dioxide 25.1 meq/L (21.0-32.0); Chloride 103 meq/L (98-107); Glomerular Filtration Rate Greater Than 89 mL/min (>89); Glucose,Random 98 mg/dL (74-106); Potassium 3.4 meq/L (3.5-5.1); Sodium 140 meq/L (136-145)
[2018-01-15 19:45] LABS: Opiate Screen,Urine Neg (Neg)
[2018-01-15 19:50] LABS: Alanine Aminotransferase 35 U/L (12-78); Alkaline Phosphatase 135 U/L (45-117); Total Protein 8.9 g/dL (6.4-8.2)
[2018-01-15] MEDS ORDERED: Acetaminophen 325 MG Tablet PO PRN (22:05)
[2018-01-15] MEDS ORDERED: Aluminum/Magnesium/Simethacone Susp 30 ML UDC PO PRN (22:05)
--- NOTE | 2018-01-16 09:25 | P.HPPSY ---
Provisional Diagnosis Admission Date: January 15, 2018 21:38 [place] I.: 1. Schizophrenia, undifferentiated type, acute exacerbation [place] II.: 1. Intellectual disability Competence Certification of Person's Competence To Provide Express and Informed Consent I have personally examined Padma Pressley, a person being served at [facility] on, January 16, 2018 0922. Express and informed consent means consent voluntarily given in writing, by a competent person, after sufficient explanation and disclosure of the subject matter involved to enable the person to make a knowing and willful decision without any element of force, fraud, deceit, duress, or other form of constraint or coercion. This person is 18 years of age or older, is not now known to be incompetent to consent to treatment with a guardian advocate, and does not have a health care surrogate or proxy currently making medical treatment decisions. I have found this person to be one of the following: [] Competent to provide express and informed consent, as defined above, for voluntary admission to this facility and is competent to provide express and informed consent for treatment. He/she has the consistent capacity to make well reasoned, willful, and knowing decisions concerning his or her medical or mental health treatment. The person fully and consistently understands the purpose of the admission for examination/placement and is fully capable of personally exercising all rights assured [place] [X] Incompetent to provide express and informed consent to voluntary admission, and this is incompetent to provide express and informed consent to treatment. The person must be transferred to involuntary status and a petition for a guardian advocate filed with the Circuit Court. [] Refusing to provide express and informed consent to voluntary admission but is competent to provide express and informed consent for treatment. The person must be discharged or transferred to involuntary status. Form shall be completed within 24 hours of a person's arrival at the receiving facility and filed in the clinical record of each person: 1. Admitted on a voluntary basis 2. Permitted to provide express and informed consent to his/her own treatment 3. Allowed to transfer from involuntary to voluntary status 4. Prior to permitting a person to consent to his or her own treatment after having been previously found incompetent to consent to treatment. History of Present Illness Capacity: Lacks capacity Chief Complaint: Psychosis History of Present Illness: Mr. Pressley is a 27 year-old male with a history of schizophrenia and intellectual disability who presents under a Stewart Act initiated by Asim Ayala [facility] alleging that patient has been released from detention and is "confused with incoherent mumbling. Pt acts with odd behavior and is unable to vouch for safety." Reviewing the electronic medical record, I note that the patient was most recently psychiatrically admitted here under my care in August of this year when he was prescribed Depakote and Seroquel. Patient seen and examined with nurse. Chart reviewed. Case discussed with nursing staff. Per nursing, the patient has been responding to internal stimuli , pulling down his pants in the common areas, displaying affective lability and frequent angry outbursts without provocation. On my exam, patient presents as disheveled. He is frankly responding to internal stimuli and seems to be including a fourth, unseen interlocutor in our conversation. His thought process is extremely disorganized and it is difficult to get much in the way of history from him. Affect is labile. Speech is rambling, occasionally coprolalic. He seems to believe that he has a spring of some sort in his rectum , "there's a spring right on my ass," and the patient does have a history of producing items that he said were in his rectum during previous admission. In consultation with radiology, I have ordered urgent pelvis x-ray to assess for possible rectal foreign body. He tries repeatedly to disrobe, trying to display his posterior on one occasion and his pubic hair on another. Paranoia is present. No depressive symptoms. No hypomanic or manic symptoms besides the affective lability. He denies any suicidal or homicidal ideation but seems unreliable to contract for safety. Psychiatric interview is limited because of patient's current degree of psychiatric symptomatology. He has no acute physical complaints besides the possible foreign body as noted above. I am unable to obtain any meaningful past psychiatric, family, chemical dependency or social history from the patient at this time on account of his psychiatric condition. I have therefore reached out to patient's mother for further collateral as well as consent for medications. Spoke with patient's mother, Dyan Jones by phone. She reports that the patient had been doing very well on his Seroquel 100 mg 3 times daily and 400 mg at bedtime. She reports that he departed last Sunday night after taking his nighttime meds, saying that he was going to spend time with his girlfriend at her house. Ms. Jones did not hear from the patient on morning and was subsequently notified by her niece that the patient had been jailed on loitering charges after niece reportedly saw patient's name in the police blotter. Ms. Jones notes that she tried to get the patient his psychotropic medications while he was in the detention, but they reportedly refused to accept them and provide them to the patient because they were "narcotics." Ms. Jones notes that the patient has no issues with medication adherence. She is willing to act as healthcare surrogate and provides consent for medications as detailed below. She requests a letter indicating that the patient has been hospitalized to provide to the court in relation to the loitering charge, and I have asked the counselor to assist her with this matter. - Inpatient Certification I certify that the inpatient services were ordered in accordance with Medicare regulations governing the order. This includes certification that hospital inpatient services are reasonable and necessary and in the case of services not specified as inpatient-only under 42 CFR 419.22(n), that they are appropriately provided as inpatient services in accordance to with the 2-midnight benchmark under 43 CFR 412.3(e) I certify that inpatient psychiatric hospital services are medically necessary. Evaluation and treatment and/or diagnostic testing are expected to improve the patient's condition. The patient needs on a daily basis, active treatment furnished directly by or requiring the supervision of inpatient psychiatric facility personnel. Estimated Total Length of Stay (Days): 7 (5-7) Plans for Post Hospital Care: Not yet determined Review of Systems unobtainable due to mental condition PMF - History History Provided By: Patient, Family Member, Medical Record - Medical History Medical History: Medical History (Last Reviewed 01/15/18 @ 18:38 by HOLLY Trejo) Patient denies medical problems - Surgical History Surgical History: Surgical History (Last Updated 01/15/18 @ 18:36 by Nino Peraza RN) No history of previous surgery - Tobacco History Smoking Status: Unknown if ever smoked - Alcohol History How Often Do You Have a Drink Containing Alcohol: Never - Substance Use History Substance History: No History of Abuse - Travel History Recent Travel in the [place] Within the Last 8 Weeks: No Recent Travel Out of the Country Within the Last 8 Weeks: No - Immunization History Tetanus Immunization: Unsure Hx Influenza Vaccine This Season: Unable to Assess Quality Measures - Psychiatric History Psychological trauma history: Unable to obtain secondary to mental condition. - Patient Strengths Patient's strengths (minimum of 2): In a monitored setting. Supportive mother. Medications and Allergies Active Medications: Active Medications Acetaminophen (Tylenol) 650 mg PO Q4H PRN PRN Reason: Pain 1-5 or Temp >101F Al Hydrox/Mg Hydrox/Simethicone (Mag-Al Plus Susp Liq) 30 ml PO Q6H PRN PRN Reason: DYSPEPSIA Al Hydroxide/Mg Hydroxide (Milk Of Magnesia Liq) 30 ml PO DAILY PRN PRN Reason: CONSTIPATION Lorazepam (Ativan) 1 mg PO Q6H PRN PRN Reason: MODERATE TO SEVERE ANXIETY Lorazepam (Ativan Inj) 1 mg IM Q6H PRN PRN Reason: MODERATE TO SEVERE ANXIETY Nicotine (Habitrol 21 Mg Patch.24 Hr) 1 patch T-DERMAL DAILY TASIA Patch Removal (Remove Old Patch) 1 each T-DERMAL HS [facility] Allergies Allergy/AdvReac Type Severity Reaction Status Date / Time No Known Allergies AdvReac Unknown Uncoded 09/25/17 15:35 Home Medications Medication Instructions Recorded Confirmed Type Seroquel 100 mg PO DAILY 01/15/18 01/15/18 History Seroquel 400 mg PO HS 01/15/18 01/15/18 History Results - Labs CBC & Chem 7: 01/15/18 18:35 01/15/18 18:35 Labs: Laboratory Results - last 24 hr 01/15/18 01/15/18 01/15/18 18:35 18:35 18:35 WBC 11.1 H RBC 5.22 Hgb 15.3 Hct 45.3 MCV 86.7 MCH 29.2 MCHC 33.7 RDW 13.7 Plt Count 359 MPV 6.9 L Neut % (Auto) 67.2 Lymph % (Auto) 23.5 Bee % (Auto) 8.3 H Eos % (Auto) 0.6 Baso % (Auto) 0.4 Neut # (Auto) 7.5 Lymph # (Auto) 2.6 Bee # (Auto) 0.9 Eos # (Auto) 0.1 Baso # (Auto) 0.0 WBC Differential . Differential Comment Auto diff final Sodium 140 Potassium 3.4 L Chloride 103 Carbon Dioxide 25.1 Anion Gap 12 BUN 9 Creatinine 0.99 Estimated GFR Greater than 89 Random Glucose 98 Calcium 9.1 Total Bilirubin 0.3 AST 32 ALT 35 Alkaline Phosphatase 135 H Total Protein 8.9 H Albumin 3.6 TSH 1.670 Salicylates Less than 1.7 L Urine Opiates Screen Acetaminophen Less than 2.0 L Ur Barbiturates Screen Ur Amphetamines Screen U Benzodiazepines Scrn Urine Cocaine Screen U Cannabinoids Screen Serum Alcohol Less than 3 01/15/18 18:45 WBC RBC Hgb Hct MCV MCH MCHC RDW Plt Count MPV Neut % (Auto) Lymph % (Auto) Bee % (Auto) Eos % (Auto) Baso % (Auto) Neut # (Auto) Lymph # (Auto) Bee # (Auto) Eos # (Auto) Baso # (Auto) WBC Differential Differential Comment Sodium Potassium Chloride Carbon Dioxide Anion Gap BUN Creatinine Estimated GFR Random Glucose Calcium Total Bilirubin AST ALT Alkaline Phosphatase Total Protein Albumin TSH Salicylates Urine Opiates Screen Neg Acetaminophen Ur Barbiturates Screen Neg Ur Amphetamines Screen Neg U Benzodiazepines Scrn Neg Urine Cocaine Screen Neg U Cannabinoids Screen Neg Serum Alcohol Labs reviewed. Mild leukocytosis noted without signs or symptoms of infection. Mildly elevated alkaline phosphatase. Mild hypokalemia, and I have ordered repletion. Toxicology negative. Exam Vital signs: Vital Signs 01/15/18 18:32 01/15/18 22:28 01/16/18 05:48 Temperature 99.4 F 98 F 97.9 F Pulse Rate 83 71 92 H Respiratory Rate 20 18 17 Blood Pressure 188/84 H 170/89 H 132/76 Pulse Oximetry 100 100 99 Intake & Output 01/15/18 01/16/18 01/16/18 18:59 06:59 18:59 Weight 63.503 kg 63.2 kg Other: Weight On Admission 63.2 kg Narrative: Physical exam completed by ED provider. On my examination today, the patient appears to be in no acute physical distress. No motor abnormalities noted. Labs and vital signs reviewed. Mental Status Examination Appearance: Disheveled Consciousness: Alert Orientation: Person (at least. Thought disorganization limits mental status testing.) Motor Activity: Normal gait Speech: Rapid Language: Other (Rambling) Fund of Knowledge: Inadequate Attention and Concentration: Inadequate Memory: Impaired (Psychosis interferes) Mood: Anxious, Irritable Affect: Labile Thought Process & Associations: Disorganized Thought Content: Hallucinations, Delusional Hallucination Type: Other (Frankly responding to internal stimuli) Delusion Type: Paranoid Suicidal Ideation: No (Unreliable to contract for safety) Suicidal Plan: No Suicidal Intention: No Homicidal Ideation: No Homicidal Plan: No Homicidal Intention: No Insight: Poor Judgment: Poor Assessment and Plan - Assessment (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 On my examination today, the patient appears to be experiencing decompensation of underlying psychotic disorder, likely secondary to medication nonadherence as reported by patient's mother in the detention setting. Patient displays self-care deficit as a consequence of his psychosis and requires psychiatric hospitalization at this time for safety, observation and stabilization. Admit inpatient. Involuntary status. I have completed first opinion. Consult for second opinion. Request healthcare surrogate and guardian advocate. Resume previously efficacious antipsychotic regimen of Seroquel 100 mg 3 times a day and 400 mg at bedtime. I did discuss with patient's mother/healthcare surrogate the possibility of switching to a long-acting injectable, but she reports that medication adherence is typically not an issue for the patient, and he has reportedly done well on the Seroquel. Haldol IM as needed for severe agitation, Ativan as needed for anxiety, Cogentin as needed for EPS, Benadryl as needed for sleep. R/B/A for medications discussed with healthcare surrogate. Vitals every shift. Counselor to see. Disposition planning. Estimated length of stay: 5-7 days. Justification for Continued Inpatient Stay: As above. Discharge Planning: Pending psychiatric stabilization Request Healthcare Surrogate/Guardian Advocate?: Yes
[2018-01-16] MEDS ORDERED: Benztropine Inj 2 MG/2 ML Ampul IM PRN (09:44)
[2018-01-16 10:38] LABS: Anion Gap 8 meq/L (5-15); Blood Urea Nitrogen 7 mg/dL (7-18); Calcium 8.8 mg/dL (8.5-10.1); Carbon Dioxide 28.9 meq/L (21.0-32.0); Chloride 107 meq/L (98-107); Cholesterol 114 mg/dL (120-200); Glomerular Filtration Rate Greater Than 89 mL/min (>89); Glucose,Random 87 mg/dL (74-106); Sodium 144 meq/L (136-145); Triglycerides 58 mg/dL (42-150)
[2018-01-16 10:40] LABS: Chol/HDL Ratio 2.59 Ratio; HDL Cholesterol 43.9 mg/dL (40.0-60.0); LDL Cholesterol,Calculated 59 mg/dL (0-99)
--- NOTE | 2018-01-16 10:59 | XR ---
EXAM DATE: 01/16/2018 10:32 AM EDT AGE/SEX: 27 years / Male INDICATIONS: Assess for rectal foreign body. CLINICAL DATA: This is the patient's initial encounter. Patient reports that signs and symptoms have been present for 2 days and indicates a pain score of 0/10. MEDICAL/SURGICAL HISTORY: None. None. COMPARISON: No prior exams available for comparison. FINDINGS: Examination of the pelvis demonstrates no evidence of fracture or dislocation. Bony mineralization i s normal. There is no widening of the sacroiliac joints. No foreign body is identified. CONCLUSION: Negative examination. Electronically signed by: Pro Flores MD 01/16/2018 10:57 AM EDT
[2018-01-16] MEDS: QUEtiapine 100 MG Tablet PO SCH ×2 (12:31→18:29)
[2018-01-16] MEDS: LORazepam 1 MG Tablet PO PRN (13:46)
--- NOTE | 2018-01-16 15:32 | P.CONPSY ---
Provisional Diagnosis Admission Date: January 15, 2018 21:38 [place] I.: 1. Schizophrenia, undifferentiated type, acute exacerbation [place] II.: 1. Intellectual disability History of Present Illness Service: Psychiatry Primary Care Provider: UNKNOWN History of Present Illness: Mr. Presslye is a 27 year-old male with a history of schizophrenia and intellectual disability who presents under a Stewart Act initiated by [facility] alleging that patient has been released from [facility] and is "confused with incoherent mumbling. Pt acts with odd behavior and is unable to vouch for safety." Reviewing the electronic medical record, I note that the patient was most recently psychiatrically admitted here under my care in August of this year when he was prescribed Depakote and Seroquel. Patient seen and examined with nurse. Chart reviewed. Case discussed with nursing staff. Per nursing, the patient has been responding to internal stimuli , pulling down his pants in the common areas, displaying affective lability and frequent angry outbursts without provocation. On my exam, patient presents as disheveled. He is frankly responding to internal stimuli and seems to be including a fourth, unseen interlocutor in our conversation. His thought process is extremely disorganized and it is difficult to get much in the way of history from him. Affect is labile. Speech is rambling, occasionally coprolalic. He seems to believe that he has a spring of some sort in his rectum , "there's a spring right on my ass," and the patient does have a history of producing items that he said were in his rectum during previous admission. In consultation with radiology, I have ordered urgent pelvis x-ray to assess for possible rectal foreign body. He tries repeatedly to disrobe, trying to display his posterior on one occasion and his pubic hair on another. Paranoia is present. No depressive symptoms. No hypomanic or manic symptoms besides the affective lability. He denies any suicidal or homicidal ideation but seems unreliable to contract for safety. Psychiatric interview is limited because of patient's current degree of psychiatric symptomatology. He has no acute physical complaints besides the possible foreign body as noted above. I am unable to obtain any meaningful past psychiatric, family, chemical dependency or social history from the patient at this time on account of his psychiatric condition. I have therefore reached out to patient's mother for further collateral as well as consent for medications. The patient was seen today for evaluation and second opinion. The patient was found walking naked in the unit. He is disorganized, had to be redirected multiple times. He seems to be quite disorganized and inappropriate. Had to be medicated in order to calm down. [facility] - History History Provided By: Patient, Family Member, Medical Record - Medical History Medical History: Medical History (Last Reviewed 01/15/18 @ 18:38 by HOLLY Trejo) Patient denies medical problems - Surgical History Surgical History: Surgical History (Last Updated 01/15/18 @ 18:36 by Nino Peraza RN) No history of previous surgery - Tobacco History Smoking Status: Unknown if ever smoked - Alcohol History How Often Do You Have a Drink Containing Alcohol: Never - Substance Use History Substance History: No History of Abuse - Travel History Recent Travel in the [place] Within the Last 8 Weeks: No Recent Travel Out of the Country Within the Last 8 Weeks: No - Immunization History Tetanus Immunization: Unsure Hx Influenza Vaccine This Season: Unable to Assess Medications and Allergies Active Medications: Active Medications Acetaminophen (Tylenol) 650 mg PO Q4H PRN PRN Reason: Pain 1-5 or Temp >101F Al Hydrox/Mg Hydrox/Simethicone (Mag-Al Plus Susp Liq) 30 ml PO Q6H PRN PRN Reason: DYSPEPSIA Al Hydroxide/Mg Hydroxide (Milk Of Magnesia Liq) 30 ml PO DAILY PRN PRN Reason: CONSTIPATION Benztropine Mesylate (Cogentin) 1 mg PO Q12H PRN PRN Reason: EXTRA PYRAMIDAL SYMPTOMS Benztropine Mesylate (Cogentin Inj) 1 mg IM Q12H PRN PRN Reason: EXTRA PYRAMIDAL SYMPTOMS Diphenhydramine HCl (Benadryl) 50 mg PO HS PRN PRN Reason: INSOMNIA Haloperidol Lactate (Haldol Inj) 5 mg IM Q6H PRN PRN Reason: SEVERE AGITATION Lorazepam (Ativan) 1 mg PO Q6H PRN PRN Reason: MODERATE TO SEVERE ANXIETY Last Admin: 01/16/18 13:46 Dose: 1 mg Lorazepam (Ativan Inj) 1 mg IM Q6H PRN PRN Reason: MODERATE TO SEVERE ANXIETY Nicotine (Habitrol 21 Mg Patch.24 Hr) 1 patch T-DERMAL DAILY [facility] Last Admin: 01/16/18 11:28 Dose: 1 patch Patch Removal (Remove Old Patch) 1 each T-DERMAL HS [facility] Quetiapine Fumarate (Seroquel) 400 mg PO HS [facility] Quetiapine Fumarate (Seroquel) 100 mg PO DAILY@09,,17 [facility] Last Admin: 01/16/18 12:31 Dose: 100 mg Allergies Allergy/AdvReac Type Severity Reaction Status Date / Time No Known Allergies AdvReac Unknown Uncoded 09/25/17 15:35 Home Medications Medication Instructions Recorded Confirmed Type Seroquel 100 mg PO DAILY 01/15/18 01/15/18 History Seroquel 400 mg PO HS 01/15/18 01/15/18 History Exam Vital signs: Vital Signs 01/15/18 18:32 01/15/18 22:28 01/16/18 05:48 Temperature 99.4 F 98 F 97.9 F Pulse Rate 83 71 92 H Respiratory Rate 20 18 17 Blood Pressure 188/84 H 170/89 H 132/76 Pulse Oximetry 100 100 99 Intake & Output 01/15/18 01/16/18 01/16/18 18:59 06:59 18:59 Weight 63.503 kg 63.2 kg Other: Weight On Admission 63.2 kg Mental Status Examination Appearance: Disheveled Consciousness: Alert Orientation: Person (at least. Thought disorganization limits mental status testing.) Motor Activity: Normal gait Speech: Rapid Language: Other (Rambling) Fund of Knowledge: Inadequate Attention and Concentration: Inadequate Memory: Impaired (Psychosis interferes) Mood: Anxious, Irritable Affect: Labile Thought Process & Associations: Disorganized Thought Content: Hallucinations, Delusional Hallucination Type: Other (Frankly responding to internal stimuli) Delusion Type: Paranoid Suicidal Ideation: No (Unreliable to contract for safety) Suicidal Plan: No Suicidal Intention: No Homicidal Ideation: No Homicidal Plan: No Homicidal Intention: No Insight: Poor Judgment: Poor Assessment and Plan - Assessment (1) Undifferentiated schizophrenia Code(s): F20.3 - Undifferentiated schizophrenia Status: Acute (2) Intellectual disability Code(s): F79 - Unspecified intellectual disabilities Status: Acute - Plan Plan: I have seen and examined this patient, reviewed documentation, I agree and concur with Dr. Pulido assessment and plan. Justification for Continued Inpatient Stay: Continue admission Request Healthcare Surrogate/Guardian Advocate?: Yes
[2018-01-17] MEDS: QUEtiapine 100 MG Tablet PO SCH ×2 (08:36→14:41)
[2018-01-17 12:00] LABS: Anion Gap 6 meq/L (5-15); Blood Urea Nitrogen 8 mg/dL (7-18); Calcium 8.6 mg/dL (8.5-10.1); Chloride 105 meq/L (98-107); Glomerular Filtration Rate Greater Than 89 mL/min (>89); Glucose,Random 76 mg/dL (74-106); Magnesium 1.8 mg/dL (1.5-2.5); Potassium 3.5 meq/L (3.5-5.1); Sodium 141 meq/L (136-145)
--- NOTE | 2018-01-17 12:01 | P.PNPSY ---
Subjective Chief Complaint: Psychosis Remarks: Patient seen and examined. Chart reviewed. Case discussed with nursing staff. Prior to rounding on the patient I was alerted by the nurse of abnormal EKG. Preliminary reading on EKG was ST elevation and possible acute [place], although patient was reportedly asymptomatic. I requested stat cardiac enzymes and requested hospitalist consultation and discussed case with midlevel provider from hospitalist service. Cardiac enzymes are inconsistent with ACS and final read of EKG indicates ST elevation is probably normal for age. Per nursing, patient remains labile and continues to disrobe inappropriately. On my exam, patient is indeed nude, save for an open pyjama jacket. He is disorganized and childlike. Affect is somewhat labile. He is able to deny SI or HI and also to deny any chest pain or shortness of breath, but otherwise it is difficult to get much meaningful information from him. He does seem a little dry, and in consultation with hospitalist midlevel provider, we will move the patient to medical psychiatric unit for IV hydration. No side effects from medications. No acute physical complaints voiced. Vital Signs Temp Pulse Resp BP Pulse Ox 01/16/18 17:03 98.1 F 127 H 18 137/87 98 Intake and Output 01/17/18 01/17/18 01/17/18 06:59 14:59 22:59 Other: Weight 64.3 kg Laboratory Results - last 24 hr 01/16/18 01/17/18 01/17/18 08:47 10:47 10:47 Hemoglobin A 97.4 Hemoglobin A2 2.6 Hemoglobin F () 0.0 Hgb A2/F Interpret . Hemoglobin Variant 2 Not Reportable Hemoglobin Variant 3 Not Reportable Hemoglobin Variant % Not Reportable Sodium 141 Potassium 3.5 Chloride 105 Carbon Dioxide 30.0 Anion Gap 6 BUN 8 Creatinine 1.01 Estimated GFR Greater than 89 Random Glucose 76 Calcium 8.6 Magnesium 1.8 Total Creatine Kinase 844 H CK-MB (CK-2) 3.5 CK-MB (CK-2) % 0.4 Troponin I Less than 0.02 L Cancelled 01/17/18 10:47 Hemoglobin A Hemoglobin A2 Hemoglobin F () Hgb A2/F Interpret Hemoglobin Variant 2 Hemoglobin Variant 3 Hemoglobin Variant % Sodium Potassium Chloride Carbon Dioxide Anion Gap BUN Creatinine Estimated GFR Random Glucose Calcium Magnesium Total Creatine Kinase Cancelled CK-MB (CK-2) CK-MB (CK-2) % Troponin I Labs reviewed. CK is elevated but MB fraction is within normal limits. Review of Systems unobtainable due to mental condition Mental Status Examination Appearance: Disheveled Consciousness: Alert Orientation: Person Motor Activity: Normal gait Speech: Slow Language: Other (Rambling) Fund of Knowledge: Inadequate Attention and Concentration: Inadequate Memory: Impaired (Psychosis interferes) Mood: Other (Slightly elevated) Affect: Labile Thought Process & Associations: Disorganized Thought Content: Hallucinations Hallucination Type: Other (Appears internally stimulated) Delusion Type: Other (Difficult to assess given thought disorganization) Suicidal Ideation: No Homicidal Ideation: No Insight: Poor Judgment: Poor Assessment and Plan - Assessment (1) Undifferentiated schizophrenia Code(s): F20.3 - Undifferentiated schizophrenia Status: Acute (2) Intellectual disability Code(s): F79 - Unspecified intellectual disabilities Status: Acute - Plan Plan: Continue Seroquel as ordered. CK elevation is likely due to inadequate PO fluid intake; no signs of NMS. To consider further titration of this agent to target psychosis. Hospitalist assistance appreciated. Transfer to med-psych unit for IVF. Transfer discussed with charge nurse. Trend CK and BMP. Continue other medications and care as ordered. Justification for Continued Inpatient Stay: Complicating condition. Impairment in reality construction. High risk for decompensation in less restrictive environment. Discharge Planning: Pending psychiatric stabilization. Request Healthcare Surrogate/Guardian Advocate?: Yes
[2018-01-17 12:04] LABS: Creatine Kinase 844 U/L (39-308)
[2018-01-17 12:16] LABS: CKMB Percent 0.4 % (0.0-4.0); Creatine Kinase MB 3.5 ng/mL (0.5-3.6)
--- NOTE | 2018-01-17 14:48 | ECG ---
Date Performed: 01/17/2018 Time Performed: 10:55:46 PTAGE: 27 years EKG: Sinus rhythm ST ELEVATION, PROBABLY NORMAL FOR AGE Since the PREVIOUS TRACING , no significant change noted PREVIOUS TRACIN12/21/2012 19.20 DOCTOR: Bernardino George Interpretating Date/Time 01/17/2018 14:48:08
[2018-01-17] MEDS ORDERED: Propranolol 10 MG Tablet PO ONE (16:00)
--- NOTE | 2018-01-17 16:06 | P.CON ---
History of Present Illness Service: Hospitalist Consult date: 01/17/18 Reason for Consult: Abnormal ECG Primary Care Provider: UNKNOWN History of Present Illness: This is a 27-year-old male with past medical history significant for schizophrenia, history of Crohn's disease and rheumatoid arthritis diagnosed at the age of 4 who was brought into the ED under Stewart act by law enforcement due to bizarre behavior. Patient has since been admitted to inpatient psychiatric unit and today was found to have abnormal EKG and elevated CPK prompting hospitalist consult for further evaluation and management. Patient is encountered in his room with the assistance of a male addiction psychiatrist as union contract representative. Per the nursing staff, patient has continually been disrobing inappropriately and is completely nude. After patient dresses himself, he is seen and examined. Patient is acutely psychotic. He is very disorganized in his thought process. As result, he is a very poor historian and it is difficult to ascertain any meaningful history from him. He does deny any chest pain or shortness of breath. He has a heart rate of 131. EKG was reviewed and does show ST elevation but was read as likely normal for age. Initial troponin is less than 0.02. CPK is elevated at 844. Review of Systems unobtainable due to mental condition PMF[facility] - History History Provided By: Patient, Medical Record - Medical History Medical History: Medical History (Last Updated 01/17/18 @ 16:03 by Nayana Cárdenas) Crohns disease Patient denies medical problems Rheumatoid arthritis Schizophrenia - Surgical History Surgical History: Surgical History (Last Updated 01/15/18 @ 18:36 by Nino Peraza RN) No history of previous surgery - Family History Family History: Family History (Last Updated 01/17/18 @ 16:03 by Nayana Cárdenas) Other Family history unobtainable - Tobacco History Smoking Status: Unknown if ever smoked - Alcohol History How Often Do You Have a Drink Containing Alcohol: Never - Substance Use History Substance History: No History of Abuse - Travel History Recent Travel in the [place] Within the Last 8 Weeks: No Recent Travel Out of the Country Within the Last 8 Weeks: No - Immunization History Tetanus Immunization: Unsure Hx Influenza Vaccine This Season: Unable to Assess Medications and Allergies Active Medications: Active Medications Acetaminophen (Tylenol) 650 mg PO Q4H PRN PRN Reason: Pain 1-5 or Temp >101F Al Hydrox/Mg Hydrox/Simethicone (Mag-Al Plus Susp Liq) 30 ml PO Q6H PRN PRN Reason: DYSPEPSIA Al Hydroxide/Mg Hydroxide (Milk Of Magnesia Liq) 30 ml PO DAILY PRN PRN Reason: CONSTIPATION Benztropine Mesylate (Cogentin) 1 mg PO Q12H PRN PRN Reason: EXTRA PYRAMIDAL SYMPTOMS Benztropine Mesylate (Cogentin Inj) 1 mg IM Q12H PRN PRN Reason: EXTRA PYRAMIDAL SYMPTOMS Diphenhydramine HCl (Benadryl) 50 mg PO HS PRN PRN Reason: INSOMNIA Last Admin: 01/16/18 20:27 Dose: 50 mg Haloperidol Lactate (Haldol Inj) 5 mg IM Q6H PRN PRN Reason: SEVERE AGITATION Sodium Bicarbonate 50 meq/ (Sodium Chloride) 1,000 mls @ 125 mls/hr IV.CONT .Q8H [facility] Lorazepam (Ativan) 1 mg PO Q6H PRN PRN Reason: MODERATE TO SEVERE ANXIETY Last Admin: 01/16/18 13:46 Dose: 1 mg Lorazepam (Ativan Inj) 1 mg IM Q6H PRN PRN Reason: MODERATE TO SEVERE ANXIETY Nicotine (Habitrol 21 Mg Patch.24 Hr) 1 patch T-DERMAL DAILY [facility] Last Admin: 01/17/18 08:36 Dose: 1 patch Nitroglycerin (Nitrostat Sl) 0.4 mg SL Q5M PRN PRN Reason: CHEST PAIN Patch Removal (Remove Old Patch) 1 each T-DERMAL [facility] Last Admin: 01/16/18 23:16 Dose: 1 each Quetiapine Fumarate (Seroquel) 400 mg PO [facility] Last Admin: 01/16/18 20:27 Dose: 400 mg Quetiapine Fumarate (Seroquel) 100 mg PO DAILY@09,13,17 [facility] Last Admin: 01/17/18 14:41 Dose: 100 mg Allergies Allergy/AdvReac Type Severity Reaction Status Date / Time No Known Allergies AdvReac Unknown Uncoded 09/25/17 15:35 Home Medications Medication Instructions Recorded Confirmed Type Seroquel 100 mg PO DAILY 01/15/18 01/15/18 History Seroquel 400 mg PO HS 01/15/18 01/15/18 History Physical Exam Vital signs: Vital Signs 01/16/18 17:03 Temperature 98.1 F Pulse Rate 127 H Respiratory Rate 18 Blood Pressure 137/87 Pulse Oximetry 98 Intake & Output 01/16/18 01/17/18 01/17/18 18:59 06:59 18:59 Weight 64.3 kg Narrative: GENERAL: Thin young male patient, INAD. Awake and alert. Acutely psychotic. Disorganized thinking. SKIN: Warm and dry. HEAD: Atraumatic. Normocephalic. EYES: Pupils equal and round. No scleral icterus. No injection or drainage. ENT: No nasal bleeding or discharge. Dry mucus membranes. NECK: Trachea midline. CARDIOVASCULAR: Tachycardic. RESPIRATORY: No accessory muscle use. Clear to auscultation. Breath sounds equal bilaterally. GASTROINTESTINAL: Abdomen soft, non-tender, nondistended. MUSCULOSKELETAL: Extremities without clubbing, cyanosis, or edema. No obvious deformities. NEUROLOGICAL: Awake and alert. No obvious cranial nerve deficits. Motor grossly within normal limits. Nonfocal. Normal speech. PSYCHIATRIC: Childlike, disorganized thought process. Assessment and Plan - Plan 27-year-old male with past medical history significant for schizophrenia, history of Crohn's disease and rheumatoid arthritis diagnosed at the age of 4 who was brought into the ED under Stewart act by law enforcement due to bizarre behavior. Patient has since been admitted to inpatient psychiatric unit and today was found to have abnormal EKG and elevated CPK prompting hospitalist consult for further evaluation and management. Schizophrenia -Management per psychiatric team Rhabdomyolysis -Discussed with primary team will have patient moved to [facility] for IV fluid hydration with bicarb -Encourage p.o. fluid intake -Trend CPK -Monitor kidney function closely Tachycardia Heart rate is 131 -Begin propanolol with hold parameters -Continue to monitor heart rate Abnormal ECG, ST elevations noted, likely normal for age, reviewed by myself and Dr. Gaviria ACS, unlikely Patient has no chest pain complaints -Initial troponin less than 0.02. Continue to trend cardiac enzymes and EKGs Crohn's, chronic RA, chronic -stable DVT prophylaxis -Patient is ambulatory Discussed Condition With: patient, nursing staff, Dr. Gaviria
[2018-01-17] MEDS: Propranolol 10 MG Tablet PO SCH (21:37)
[2018-01-17 22:44] LABS: Creatine Kinase 1089 U/L (39-308)
[2018-01-17 22:57] LABS: CKMB Percent 0.3 % (0.0-4.0); Creatine Kinase MB 3.5 ng/mL (0.5-3.6)
[2018-01-17] MEDS: LORazepam 1 MG Tablet PO PRN (23:46)
[2018-01-18] MEDS: Sodium Bicarbonate 8.4% Inj 50 MEQ in Sod Chloride 0.9% Inj 950 ML IV.CONT SCH ×2 (00:19→15:41)
[2018-01-18] MEDS: QUEtiapine 100 MG Tablet PO SCH ×4 (10:05→18:43)
--- NOTE | 2018-01-18 11:09 | P.PN ---
Subjective Interval history: Follow-up on patient with rhabdomyolysis. Patient seen and examined. Patient appears comfortable. He denies any complaints of chest pain or shortness of breath. He states he feels well. He remains very disorganized in his thought process. Repeat labs not drawn today due to patient refusal. Discussed with RN , lab will come by later today and try again. CK trending up however, RN informs me patient's IV fluids did not start running until sometime after 7pm last night. Physical Exam Vital signs: Vital Signs 01/18/18 05:39 Temperature 98.6 F Pulse Rate 102 H Respiratory Rate 20 Blood Pressure 129/81 Pulse Oximetry 99 Narrative: GENERAL: Thin young male patient, INAD. Awake and alert. Disorganized thinking. Appears comfortable. SKIN: Warm and dry. HEAD: Atraumatic. Normocephalic. EYES: Pupils equal and round. No scleral icterus. No injection or drainage. ENT: No nasal bleeding or discharge. Dry mucus membranes. NECK: Trachea midline. CARDIOVASCULAR: Tachycardic. No murmur appreciated. RESPIRATORY: No accessory muscle use. Clear to auscultation. Breath sounds equal bilaterally. GASTROINTESTINAL: Abdomen soft, non-tender, nondistended. MUSCULOSKELETAL: Extremities without clubbing, cyanosis, or edema. No obvious deformities. NEUROLOGICAL: Awake and alert. No obvious cranial nerve deficits. Motor grossly within normal limits. Nonfocal. PSYCHIATRIC: Childlike, disorganized thought process. Judgement and insight poor. Results - Labs CBC & Chem 7: 01/15/18 18:35 01/17/18 10:47 Laboratory Results - last 24 hr 01/16/18 01/17/18 01/17/18 08:47 10:47 10:47 Hemoglobin A 97.4 Hemoglobin A2 2.6 Hemoglobin F () 0.0 Hgb A2/F Interpret . Hemoglobin Variant 2 Not Reportable Hemoglobin Variant 3 Not Reportable Hemoglobin Variant % Not Reportable Sodium 141 Potassium 3.5 Chloride 105 Carbon Dioxide 30.0 Anion Gap 6 BUN 8 Creatinine 1.01 Estimated GFR Greater than 89 Random Glucose 76 Calcium 8.6 Magnesium 1.8 Total Creatine Kinase 844 H CK-MB (CK-2) 3.5 CK-MB (CK-2) % 0.4 Troponin I Less than 0.02 L Cancelled 01/17/18 01/17/18 10:47 21:57 Hemoglobin A Hemoglobin A2 Hemoglobin F () Hgb A2/F Interpret Hemoglobin Variant 2 Hemoglobin Variant 3 Hemoglobin Variant % Sodium Potassium Chloride Carbon Dioxide Anion Gap BUN Creatinine Estimated GFR Random Glucose Calcium Magnesium Total Creatine Kinase Cancelled 1089 H CK-MB (CK-2) 3.5 CK-MB (CK-2) % 0.3 Troponin I Less than 0.02 L Assessment and Plan - Plan 27-year-old male with past medical history significant for schizophrenia, history of Crohn's disease and rheumatoid arthritis diagnosed at the age of 4 who was brought into the ED under Stewart act by law enforcement due to bizarre behavior. Patient has since been admitted to inpatient psychiatric unit and today was found to have abnormal EKG and elevated CPK prompting hospitalist consult for further evaluation and management. Schizophrenia -Management per psychiatric team Rhabdomyolysis repeat CK trending up but IVF started late in the day yesterday Patient refusing blood draw this morning, lab will try again later -Encourage p.o. fluid intake -Continue on IVF hydration -Trend CPK -Monitor kidney function closely Tachycardia Heart rate 131 HR better this am -Continue on propanolol with hold parameters -Continue to monitor heart rate Abnormal ECG, ST elevations noted, likely normal for age ACS, unlikely Patient has no chest pain complaints Troponin less than 0.02 x 2 -Monitor Crohn's, chronic RA, chronic -stable DVT prophylaxis -Patient is ambulatory Discussed Condition With: Patient, nursing staff, Dr. Gaviria
--- NOTE | 2018-01-18 11:45 | P.PNPSY ---
Subjective Chief Complaint: Psychosis Remarks: Patient seen and examined. Chart reviewed. Case discussed with nursing staff who reports the patient has been cooperative but has been speaking in a disorganized fashion. On my examination today, the patient remains fairly disorganized. Affect is somewhat irritable. He is clothed today. He denies SI or HI. Denies AVH but does appears somewhat internally stimulated. Patient is oriented at least to person, but further mental status testing is unable to be performed as he is uncooperative with this. Likewise, the patient will allow me to perform motor exam on his lower extremities but not his upper extremities. There is no evidence of increased tone, no pathologic ankle clonus. No other motor abnormalities, no signs of NMS noted. Denies side effects from medications. No physical complaints. Vital Signs Temp Pulse Resp BP Pulse Ox 01/18/18 05:39 98.6 F 102 H 20 129/81 99 Laboratory Results - last 24 hr 01/16/18 01/17/18 01/18/18 08:47 21:57 10:50 Hemoglobin A 97.4 Hemoglobin A2 2.6 Hemoglobin F () 0.0 Hgb A2/F Interpret . Hemoglobin Variant 2 Not Reportable Hemoglobin Variant 3 Not Reportable Hemoglobin Variant % Not Reportable Sodium Potassium Chloride Carbon Dioxide Anion Gap BUN Creatinine Estimated GFR Random Glucose Calcium Total Creatine Kinase 1089 H 811 H CK-MB (CK-2) 3.5 CK-MB (CK-2) % 0.3 Troponin I Less than 0.02 L 01/18/18 10:50 Hemoglobin A Hemoglobin A2 Hemoglobin F () Hgb A2/F Interpret Hemoglobin Variant 2 Hemoglobin Variant 3 Hemoglobin Variant % Sodium 142 Potassium 3.8 Chloride 105 Carbon Dioxide 30.5 Anion Gap 7 BUN 9 Creatinine 1.06 Estimated GFR Greater than 89 Random Glucose 66 L Calcium 8.8 Total Creatine Kinase 811 H CK-MB (CK-2) CK-MB (CK-2) % Troponin I Less than 0.02 L Labs reviewed. CK initially trended up but now is trending back down. Troponins all negative. Repeat EKG was sinus rhythm with QTc not prolonged. Review of Systems unobtainable due to mental condition Mental Status Examination Appearance: Disheveled Consciousness: Alert Orientation: Person Motor Activity: Other (No motor abnormalities noted) Speech: Slow Language: Other (Rambling) Fund of Knowledge: Inadequate Attention and Concentration: Inadequate Memory: Impaired (Unable to assess but suspect remains impaired) Mood: Irritable Affect: Irritable Thought Process & Associations: Disorganized Thought Content: Hallucinations Hallucination Type: Other (Remains internally stimulated) Delusion Type: None Suicidal Ideation: No Suicidal Plan: No Suicidal Intention: No Homicidal Ideation: No Homicidal Plan: No Homicidal Intention: No Insight: Poor Judgment: Poor Assessment and Plan - Assessment (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 I do think it is presently safe to continue antipsychotics in the setting of mildly elevated CK as it is downtrending and patient has no exam signs of NMS and is receiving treatment for elevated CK with IVF. Continue to monitor on the medical psychiatric unit. Hospitalist input noted and appreciated. We will continue to trend CK and BMP. Continue other medications and care as ordered. Justification for Continued Inpatient Stay: Complicating condition. Impairment in reality construction. High risk for decompensation in less restrictive environment. Discharge Planning: Pending psychiatric stabilization. Request Healthcare Surrogate/Guardian Advocate?: Yes
[2018-01-18 11:54] LABS: Anion Gap 7 meq/L (5-15); Blood Urea Nitrogen 9 mg/dL (7-18); Calcium 8.8 mg/dL (8.5-10.1); Carbon Dioxide 30.5 meq/L (21.0-32.0); Chloride 105 meq/L (98-107); Glomerular Filtration Rate Greater Than 89 mL/min (>89); Glucose,Random 66 mg/dL (74-106); Potassium 3.8 meq/L (3.5-5.1); Sodium 142 meq/L (136-145)
[2018-01-18 11:58] LABS: Creatine Kinase 811 U/L (39-308)
[2018-01-18 12:21] LABS: CKMB Percent 0.3 % (0.0-4.0); Creatine Kinase MB 2.7 ng/mL (0.5-3.6)
[2018-01-18] MEDS: Propranolol 10 MG Tablet PO SCH ×2 (16:03→21:13)
[2018-01-18] MEDS: LORazepam 1 MG Tablet PO PRN (22:43)
[2018-01-18] MEDS: Haloperidol Inj 5 MG/ML Ampul IM PRN (23:22)
[2018-01-19] MEDS: Sodium Bicarbonate 8.4% Inj 50 MEQ in Sod Chloride 0.9% Inj 950 ML IV.CONT SCH (05:44)
[2018-01-19] MEDS: Propranolol 10 MG Tablet PO SCH ×2 (08:47→21:21)
[2018-01-19] MEDS: QUEtiapine 100 MG Tablet PO SCH ×3 (08:47→16:52)
--- NOTE | 2018-01-19 09:56 | P.PN ---
Subjective Interval history: Follow-up on patient with rhabdomyolysis. Patient seen and examined. Reports he is doing okay. Calm. Does not follow most commands or respond to most questions. No acute issues overnight as per nursing. Physical Exam Vital signs: Vital Signs 01/18/18 18:00 01/19/18 06:15 Temperature 98.7 F 96.9 F L Pulse Rate 111 H 95 H Respiratory Rate 20 18 Blood Pressure 143/85 H 120/65 Pulse Oximetry 97 95 Intake & Output 01/18/18 01/19/18 01/19/18 18:59 06:59 18:59 Intake Total 1720 / 1720 1000 / 1000 Balance 1720 / 1720 1000 / 1000 Intake: IV 1000 / 1000 1000 / 1000 Sodium Bicarbonate 8.4% Inj 50 1000 / 1000 1000 / 1000 MEQ In NS Inj 950 ML @ 150 mls/ hr IV.CONT .Q6H40M [facility] Rx#: [id number] Oral 720 / 720 Narrative: GENERAL: Thin young male patient, INAD. Awake and alert. Disorganized thinking. Appears comfortable. SKIN: Warm and dry. HEAD: Atraumatic. Normocephalic. EYES: Pupils equal and round. No scleral icterus. No injection or drainage. ENT: No nasal bleeding or discharge. Dry mucus membranes. NECK: Trachea midline. CARDIOVASCULAR: Tachycardic. No murmur appreciated. RESPIRATORY: No accessory muscle use. Clear to auscultation. Breath sounds equal bilaterally. GASTROINTESTINAL: Abdomen soft, non-tender, nondistended. MUSCULOSKELETAL: Extremities without clubbing, cyanosis, or edema. No obvious deformities. NEUROLOGICAL: Awake and alert. Motor grossly within normal limits. Minimal verbalization. Does not follow most commands or responds to most questions. Results - Labs CBC & Chem 7: 01/15/18 18:35 01/19/18 09:45 Laboratory Results - last 24 hr 01/18/18 01/18/18 10:50 10:50 Sodium 142 Potassium 3.8 Chloride 105 Carbon Dioxide 30.5 Anion Gap 7 BUN 9 Creatinine 1.06 Estimated GFR Greater than 89 Random Glucose 66 L Calcium 8.8 Total Creatine Kinase 811 H 811 H CK-MB (CK-2) 2.7 CK-MB (CK-2) % 0.3 Troponin I Less than 0.02 L Assessment and Plan - Plan 27-year-old male with past medical history significant for schizophrenia, history of Crohn's disease and rheumatoid arthritis diagnosed at the age of 4 who was brought into the ED under [place] act by law enforcement due to bizarre behavior. Patient has since been admitted to inpatient psychiatric unit and today was found to have abnormal EKG and elevated CPK prompting hospitalist consult for further evaluation and management. Schizophrenia -Management per psychiatric team Rhabdomyolysis -Encourage p.o. fluid intake -Continue on IVF hydration for now, will DC bicarb -Trend CPK, improving -Monitor kidney function Tachycardia Poss secondary to internal stimulation/ psychosis -Continue on propanolol with hold parameters -Continue to monitor heart rate Abnormal ECG, ST elevations noted, likely normal for age ACS, unlikely -Troponin less than 0.02 x 2 -Monitor -Denies symptomatology Crohn's, chronic RA, chronic -stable DVT prophylaxis ambulatory Code Status: Full code Discussed Condition With: Patient, nursing Discharge Planning: DC disposition by primary team
[2018-01-19 11:02] LABS: Anion Gap 9 meq/L (5-15); Blood Urea Nitrogen 10 mg/dL (7-18); Calcium 8.3 mg/dL (8.5-10.1); Carbon Dioxide 29.5 meq/L (21.0-32.0); Chloride 106 meq/L (98-107); Glomerular Filtration Rate Greater Than 89 mL/min (>89); Glucose,Random 76 mg/dL (74-106); Potassium 3.8 meq/L (3.5-5.1); Sodium 144 meq/L (136-145)
[2018-01-19 11:05] LABS: Creatine Kinase 771 U/L (39-308)
[2018-01-19 11:19] LABS: CKMB Percent 0.3 % (0.0-4.0); Creatine Kinase MB 2.6 ng/mL (0.5-3.6)
[2018-01-19] MEDS: Sod Chloride 0.9% Inj 1,000 ML IV.CONT SCH ×2 (13:42→23:50)
--- NOTE | 2018-01-19 16:09 | P.PNPSY ---
Subjective Chief Complaint: Psychosis Remarks: Reviewed electronic medical records and discussed case with staff. Follow-up was conducted in the patient's room with nurse present. His nurse reports that he kept trying to take his IV apart last night. However, so far today he has been pleasant, polite, and has not had any behaviors. He also was compliant with his medications. He is found lying in his bed, awake, watching television. He states that he feels "alright" and that he ate his breakfast. He denies any C /O at this time and asks for some crackers and juice. No indication of internal stimulation at this time. Mental Status Examination Appearance: Disheveled Consciousness: Alert Orientation: Person Motor Activity: Other (No motor abnormalities noted) Speech: Slow Language: Other (Rambling) Fund of Knowledge: Inadequate Attention and Concentration: Inadequate Memory: Impaired (Unable to assess but suspect remains impaired) Mood: Irritable Affect: Irritable Thought Process & Associations: Disorganized Thought Content: Hallucinations Hallucination Type: Other (Remains internally stimulated) Delusion Type: None Suicidal Ideation: No Suicidal Plan: No Suicidal Intention: No Homicidal Ideation: No Homicidal Plan: No Homicidal Intention: No Insight: Poor Judgment: Poor Assessment and Plan - Assessment (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 Continue with current treatment plan. Justification for Continued Inpatient Stay: Moving this patient to a less restrictive environment would likely result in decompensation. Request Healthcare Surrogate/Guardian Advocate?: Yes
--- NOTE | 2018-01-19 17:34 | ECG ---
Date Performed: 01/17/2018 Time Performed: 20:31:33 PTAGE: 27 years EKG: Sinus rhythm BORDERLINE RIGHT AXIS DEVIATION MODERATE VOLTAGE CRITERIA FOR LVH, CONSIDER NORMAL VARIANT NONSPECIF IC ST ELEVATION BORDERLINE ECG PREVIOUS TRACING : 01/17/2018 10.55 DOCTOR: Gideon Gonzalez Interpretating Date/Time 01/19/2018 17:30:00
[2018-01-19] MEDS: LORazepam 1 MG Tablet PO PRN (21:21)
[2018-01-20] MEDS: QUEtiapine 100 MG Tablet PO SCH ×3 (08:29→16:56)
[2018-01-20] MEDS: Propranolol 10 MG Tablet PO SCH ×2 (08:29→20:48)
[2018-01-20 09:40] LABS: Anion Gap 6 meq/L (5-15); Blood Urea Nitrogen 8 mg/dL (7-18); Calcium 8.5 mg/dL (8.5-10.1); Carbon Dioxide 29.6 meq/L (21.0-32.0); Chloride 104 meq/L (98-107); Glomerular Filtration Rate Greater Than 89 mL/min (>89); Glucose,Random 86 mg/dL (74-106); Potassium 4.1 meq/L (3.5-5.1); Sodium 140 meq/L (136-145)
[2018-01-20 09:43] LABS: Creatine Kinase 669 U/L (39-308)
[2018-01-20 10:08] LABS: CKMB Percent 0.2 % (0.0-4.0); Creatine Kinase MB 1.2 ng/mL (0.5-3.6)
--- NOTE | 2018-01-20 11:30 | P.PN ---
Subjective Interval history: Follow-up on patient with rhabdomyolysis. Patient seen and examined. Reports he is doing okay. Calm. Oriented to place, person. Physical Exam Vital signs: Vital Signs 01/19/18 18:00 01/20/18 06:23 Temperature 98.3 F 98.1 F Pulse Rate 84 80 Respiratory Rate 18 16 Blood Pressure 125/80 120/70 Pulse Oximetry 97 98 Intake & Output 01/19/18 01/20/18 01/20/18 18:59 06:59 18:59 Intake Total 1840 / 1840 1000 / 1000 1000 / 1000 Balance 1840 / 1840 1000 / 1000 1000 / 1000 Intake: IV 1000 / 1000 1000 / 1000 1000 / 1000 NS Inj 1,000 ML @ 100 mls/hr IV 1000 / 1000 1000 / 1000 .CONT .Q10H [facility] Rx#:[id number] Sodium Bicarbonate 8.4% Inj 50 1000 / 1000 MEQ In NS Inj 950 ML @ 150 mls/ hr IV.CONT .Q6H40M [facility] Rx#: [id number] Oral 840 / 840 Narrative: GENERAL: Thin young male patient, INAD. Awake and alert. Disorganized thinking. Appears comfortable. SKIN: Warm and dry. HEAD: Atraumatic. Normocephalic. EYES: Pupils equal and round. No scleral icterus. No injection or drainage. ENT: No nasal bleeding or discharge. Dry mucus membranes. NECK: Trachea midline. CARDIOVASCULAR: Tachycardic. No murmur appreciated. RESPIRATORY: No accessory muscle use. Clear to auscultation. Breath sounds equal bilaterally. GASTROINTESTINAL: Abdomen soft, non-tender, nondistended. MUSCULOSKELETAL: Extremities without clubbing, cyanosis, or edema. No obvious deformities. NEUROLOGICAL: Awake and alert. Motor grossly within normal limits. Minimal verbalization. Does not follow most commands or responds to most questions. Results - Labs CBC & Chem 7: 01/15/18 18:35 01/20/18 08:38 Laboratory Results - last 24 hr 01/20/18 08:38 Sodium 140 Potassium 4.1 Chloride 104 Carbon Dioxide 29.6 Anion Gap 6 BUN 8 Creatinine 1.10 Estimated GFR Greater than 89 Random Glucose 86 Calcium 8.5 Total Creatine Kinase 669 H CK-MB (CK-2) 1.2 CK-MB (CK-2) % 0.2 Assessment and Plan - Plan 27-year-old male with past medical history significant for schizophrenia, history of Crohn's disease and rheumatoid arthritis diagnosed at the age of 4 who was brought into the ED under [place] act by law enforcement due to bizarre behavior. Patient has since been admitted to inpatient psychiatric unit and today was found to have abnormal EKG and elevated CPK prompting hospitalist consult for further evaluation and management. Schizophrenia -Management per psychiatric team Rhabdomyolysis -Encourage p.o. fluid intake -Continue on IVF hydration for now, will DC bicarb -Trend CPK, improving -Monitor kidney function Tachycardia Poss secondary to internal stimulation/ psychosis -Continue on propanolol with hold parameters -Continue to monitor heart rate Abnormal ECG, ST elevations noted, likely normal for age ACS, unlikely -Troponin less than 0.02 x 2 -Monitor -Denies symptomatology Crohn's, chronic RA, chronic -stable DVT prophylaxis ambulatory Code Status: Full code Discussed Condition With: Patient, nursing Discharge Planning: DC disposition by primary team
[2018-01-20] MEDS: Sod Chloride 0.9% Inj 1,000 ML IV.CONT SCH ×4 (11:45→17:20)
--- NOTE | 2018-01-20 14:06 | P.PNPSY ---
Subjective Chief Complaint: Psychosis Remarks: I have seen and examined this patient today for psychiatric reevaluation. The patient is found in his bed, is calm, but disorganized, laughing inappropriately. He says that he feels much better. He says that he is ready to be discharged back home with his brother. Just partially oriented. Does not seem to be in acute distress, kind of concrete. Compliant with medications , no significant side effects. Mental Status Examination Appearance: Disheveled Consciousness: Alert Orientation: Person Motor Activity: Other (No motor abnormalities noted) Speech: Slow Language: Other (Rambling) Fund of Knowledge: Inadequate Attention and Concentration: Inadequate Memory: Impaired (Unable to assess but suspect remains impaired) Mood: Irritable Affect: Irritable Thought Process & Associations: Disorganized Thought Content: Hallucinations Hallucination Type: Other (Remains internally stimulated) Delusion Type: None Suicidal Ideation: No Suicidal Plan: No Suicidal Intention: No Homicidal Ideation: No Homicidal Plan: No Homicidal Intention: No Insight: Poor Judgment: Poor Assessment and Plan - Assessment (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 Continue current psychotropic regimen. Justification for Continued Inpatient Stay: Acutely psychotic. Request Healthcare Surrogate/Guardian Advocate?: Yes
[2018-01-21] MEDS: Sod Chloride 0.9% Inj 1,000 ML IV.CONT SCH ×5 (02:20→10:32)
[2018-01-21] MEDS: LORazepam 1 MG Tablet PO PRN (02:21)
[2018-01-21 08:22] LABS: CKMB Percent 0.2 % (0.0-4.0); Creatine Kinase MB 1.2 ng/mL (0.5-3.6)
--- NOTE | 2018-01-21 09:50 | P.PNPSY ---
Subjective Chief Complaint: Psychosis Remarks: Patient seen and examined with nurse. Chart reviewed. Case discussed with nursing staff. Ongoing behavioral disorganization reported by nurse over the weekend. Patient was noted to be disrobing at times, not in a sexual fashion but rather in a disorganized fashion. He also was noted to be eating toothpaste on Sunday. He denied audiovisual hallucinations to the nurse but was observed responding to internal stimuli. On my examination today, the patient remains childlike. He is presently calm. He is fully clothed at the time of my interview. He denies any audiovisual hallucinations but does remain somewhat internally preoccupied. Denies any suicidal or homicidal ideation. Denies any side effects from medications. No physical complaints. Placed call to the patient's mother/healthcare surrogate to discuss the case. She reports that behaviors described by nursing staff over the weekend are not a feature of the patient's baseline. We discuss adjusting psychotropic medications to target this behavioral disorganization. In particular we discuss further titration of patient's Seroquel. Even though this will push the dose above the recommended maximum dose, dose will remain within the range of clinical practice. Mother will come to visit the patient this evening to provide further details on how far off his baseline he remains. Vital Signs Temp Pulse Resp BP Pulse Ox 01/21/18 06:01 98.3 F 90 17 140/81 99 01/20/18 18:17 98.4 F 95 H 18 117/67 96 Intake and Output 01/20/18 01/21/18 01/21/18 22:59 06:59 14:59 Intake Total 1300 / 1300 1000 / 1000 720 / 720 Balance 1300 / 1300 1000 / 1000 720 / 720 Intake: IV 1000 / 1000 1000 / 1000 NS Inj 1,000 ML @ 200 mls/hr IV 1000 / 1000 1000 / 1000 .CONT .Q5H [facility] Rx#:[id number] Oral 300 / 300 720 / 720 Other: Weight 64 kg Laboratory Results - last 24 hr 01/20/18 01/21/18 08:38 06:47 Total Creatine Kinase 522 H CK-MB (CK-2) 1.2 1.2 CK-MB (CK-2) % 0.2 0.2 Labs reviewed. CK downtrending. Review of Systems unobtainable due to mental condition Mental Status Examination Appearance: Disheveled Consciousness: Alert Orientation: Person Motor Activity: Normal gait, Other (No motor abnormalities noted.) Speech: Slow Language: Other (Rambling) Fund of Knowledge: Inadequate Attention and Concentration: Inadequate Memory: Impaired (Unable to assess but suspect remains impaired) Mood: Appropriate Affect: Euthymic (Childlike) Thought Process & Associations: Other (Tangential, disorganized at times) Thought Content: Hallucinations Hallucination Type: Other (Denies AVH but remains somewhat internally preoccupied) Delusion Type: None Suicidal Ideation: No Suicidal Plan: No Suicidal Intention: No Homicidal Ideation: No Homicidal Plan: No Homicidal Intention: No Insight: Poor Judgment: Poor Assessment and Plan - Assessment (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 Hospitalist input appreciated. CK is now downtrending. Continue to monitor on the inpatient unit. Continue other medications and care as ordered. Justification for Continued Inpatient Stay: Medication changes. Resolving impairments in reality construction. Complicating conditions, namely the elevated CK. High risk for decompensation in less restrictive environment. Discharge Planning: Pending psychiatric stabilization. Hopeful for discharge by middle of the week. Request Healthcare Surrogate/Guardian Advocate?: Yes
[2018-01-21] MEDS: QUEtiapine 100 MG Tablet PO SCH ×4 (10:28→17:48)
[2018-01-21] MEDS: Propranolol 10 MG Tablet PO SCH ×2 (10:28→21:16)
--- NOTE | 2018-01-21 10:43 | P.PN ---
Subjective Interval history: Follow-up on patient with rhabdomyolysis. Patient seen and examined. Patient denies any new medical complaints. States he is doing well. Discussed with nursing staff, no acute events noted. Physical Exam Vital signs: Vital Signs 01/20/18 18:17 01/21/18 06:01 Temperature 98.4 F 98.3 F Pulse Rate 95 H 90 Respiratory Rate 18 17 Blood Pressure 117/67 140/81 Pulse Oximetry 96 99 Intake & Output 01/20/18 01/21/18 01/21/18 18:59 06:59 18:59 Intake Total 2600 / 2600 1000 / 1000 720 / 720 Balance 2600 / 2600 1000 / 1000 720 / 720 Weight 64 kg Intake: IV 1999 1000 / 1000 NS Inj 1,000 ML @ 200 mls/hr IV 1999 1000 / 1000 .CONT .Q5H [facility] Rx#:[id number] Oral 600 / 600 720 / 720 Narrative: GENERAL: Thin young male patient, INAD. Awake and alert. Appears comfortable. +disorganized thinking. SKIN: Warm and dry. No generalized rash. HEAD: Atraumatic. Normocephalic. EYES: Pupils equal and round. No scleral icterus. No injection or drainage. ENT: No nasal bleeding or discharge. Dry mucus membranes. NECK: Trachea midline. CARDIOVASCULAR: Tachycardic. No murmur appreciated. RESPIRATORY: No accessory muscle use. Clear to auscultation. Breath sounds equal bilaterally. GASTROINTESTINAL: Abdomen soft, non-tender, nondistended. MUSCULOSKELETAL: Extremities without clubbing, cyanosis, or edema. No obvious deformities. NEUROLOGICAL: Awake and alert. Motor grossly within normal limits. Nonfocal. Minimal verbalization. PSYCHIATRIC: Childlike. Calm and cooperative. Judgement and insight poor. Results - Labs CBC & Chem 7: 01/15/18 18:35 01/20/18 08:38 Laboratory Results - last 24 hr 01/21/18 06:47 Total Creatine Kinase 522 H CK-MB (CK-2) 1.2 CK-MB (CK-2) % 0.2 Assessment and Plan - Plan 27-year-old male with past medical history significant for schizophrenia, history of Crohn's disease and rheumatoid arthritis diagnosed at the age of 4 who was brought into the ED under [place] act by law enforcement due to bizarre behavior. Patient has since been admitted to inpatient psychiatric unit and today was found to have abnormal EKG and elevated CPK prompting hospitalist consult for further evaluation and management. Schizophrenia -Management per psychiatric team Rhabdomyolysis, resolving -Continue to encourage p.o. fluid intake -CK much improved, d/c IVF -Trend CPK as indicated -Monitor kidney function closely - Cr/GFR have remained WNL Tachycardia Heart rate 131 -Continue on propanolol with hold parameters -Continue to monitor heart rate Abnormal ECG, ST elevations noted, likely normal for age ACS, unlikely Patient has no chest pain complaints Troponin less than 0.02 x 2 -Monitor Crohn's, chronic RA, chronic -stable DVT prophylaxis -Patient is ambulatory Patient appears stable from hospitalist standpoint. [facility] will sign off. Please reconsult if needed. Discussed Condition With: patient, nursing staff Discharge Planning: Discharge plan per primary team
[2018-01-21] MEDS: QUEtiapine 25 MG Tablet PO SCH ×3 (11:00→17:48)
[2018-01-22] MEDS: Haloperidol Inj 5 MG/ML Ampul IM PRN (05:59)
[2018-01-22 07:22] LABS: CKMB Percent 0.4 % (0.0-4.0); Creatine Kinase MB 1.2 ng/mL (0.5-3.6)
--- NOTE | 2018-01-22 09:03 | P.TTN ---
- Patient Problems Problems: 1. Discharge planning 2. Medication compliance 3. Knowledge deficit 4. Lack of coping skills - Progress Toward Goals Provider Present: Dr. Thomas Pulido Provider Input: Patient's medication has been adjusted; continues to require inpatient Nurse(s) Present: WANDY Benjamin Nurse Input: According to RN patient is still displaying altered mental status actively responding to internal stimuli, patient is redirectable, continues to have outburst of laughter and talking to self. Patient is taking his medication. Psychiatric Counselors Present: Gladys Tierney [facility] Psychiatric Therapist Input: Per treating psychiatrist counselor will contact patient's mother to discuss dc planning and visitation Group Spec/RT/OT/KEARNEY Present: CHRISTEL Escobedo Group Spec/RT/OT/KEARNEY Input: OT reports patient has been medically unable to attend groups Additional Input: Patient will return to his mother's home when stable with outpatient follow-up with [facility] - Discharge Plan [facility] - Documentation Teaching Recipient: Patient
[2018-01-22] MEDS: Propranolol 10 MG Tablet PO SCH ×2 (10:25→20:45)
[2018-01-22] MEDS: QUEtiapine 25 MG Tablet PO SCH (10:26)
[2018-01-22] MEDS: QUEtiapine 100 MG Tablet PO SCH ×3 (10:26→17:55)
--- NOTE | 2018-01-22 11:35 | P.PNPSY ---
Subjective Chief Complaint: Psychosis Remarks: Patient seen and examined. Chart reviewed. Case discussed with nursing staff. Patient reportedly became fearful this morning believing there were snakes in his room. He became somewhat agitated and was provided with as needed by medication by the nurse. Patient was compliant with administration of this medication and subsequently calmed. Case discussed in treatment team. On my examination today, patient is calm and cooperative. He denies any SI or HI. Denies any AVH. No recollection of events from this morning. No delusional material. No side effects from medications. No physical complaints. Hopeful for discharge soon. Spoke with patient's mother/healthcare surrogate. She visited with the patient last night and feels that he is improving. She does note that patient does occasionally have nightmares and believe that there are snakes in his room. She would like to see the patient monitored 1 more day and is willing to accept him home tomorrow. Vital Signs Temp Pulse Resp BP Pulse Ox 01/22/18 06:12 98.8 F 86 17 124/71 99 01/22/18 05:43 98.8 F 86 17 124/71 99 Intake and Output 01/21/18 01/22/18 01/22/18 22:59 06:59 14:59 Intake Total 2160 / 2160 240 / 240 Balance 2160 / 2160 240 / 240 Intake: Oral 2160 / 2160 240 / 240 Other: # Voids 3 Laboratory Results - last 24 hr 01/22/18 06:06 Total Creatine Kinase 325 H CK-MB (CK-2) 1.2 CK-MB (CK-2) % 0.4 Labs reviewed. CK continues to trend downward. Review of Systems All other systems reviewed negative except as stated in HPI (Limitation: Poor historian) Mental Status Examination Appearance: Disheveled (Improving) Consciousness: Alert Orientation: Person Motor Activity: Normal gait, Other (No abnormal motor movements noted) Speech: Slow Language: Other (A little less rambling today) Fund of Knowledge: Inadequate Attention and Concentration: Inadequate Memory: Impaired (Unable to assess but suspect remains impaired) Mood: Appropriate Affect: Euthymic (Childlike) Thought Process & Associations: Other (Somewhat slowed and concrete) Thought Content: Appropriate Hallucination Type: None (Denies AVH presently) Delusion Type: None Suicidal Ideation: No Suicidal Plan: No Suicidal Intention: No Homicidal Ideation: No Homicidal Plan: No Homicidal Intention: No Insight: Poor Judgment: Poor Assessment and Plan - Assessment (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 Continue to monitor on the inpatient unit. Continue other care as ordered. Justification for Continued Inpatient Stay: Medication changes. Discharge Planning: Anticipate discharge tomorrow, Sunday. Request Healthcare Surrogate/Guardian Advocate?: Yes
[2018-01-23] MEDS: Propranolol 10 MG Tablet PO SCH (09:04)
[2018-01-23] MEDS: QUEtiapine 100 MG Tablet PO SCH (09:05)
--- NOTE | 2018-01-23 11:56 | P.DSPSY ---
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 Pressley is a 27 year-old male with a history of schizophrenia and intellectual disability who presents under a [employer] Act initiated by Asim Ayala [facility] alleging that patient has been released from [facility] and is "confused with incoherent mumbling. Pt acts with odd behavior and is unable to vouch for safety." Reviewing the electronic medical record, I note that the patient was most recently psychiatrically admitted here under my care in August of this year when he was prescribed Depakote and Seroquel. Patient seen and examined with nurse. Chart reviewed. Case discussed with nursing staff. Per nursing, the patient has been responding to internal stimuli , pulling down his pants in the common areas, displaying affective lability and frequent angry outbursts without provocation. On my exam, patient presents as disheveled. He is frankly responding to internal stimuli and seems to be including a fourth, unseen interlocutor in our conversation. His thought process is extremely disorganized and it is difficult to get much in the way of history from him. Affect is labile. Speech is rambling, occasionally coprolalic. He seems to believe that he has a spring of some sort in his rectum , "there's a spring right on my ass," and the patient does have a history of producing items that he said were in his rectum during previous admission. In consultation with radiology, I have ordered urgent pelvis x-ray to assess for possible rectal foreign body. He tries repeatedly to disrobe, trying to display his posterior on one occasion and his pubic hair on another. Paranoia is present. No depressive symptoms. No hypomanic or manic symptoms besides the affective lability. He denies any suicidal or homicidal ideation but seems unreliable to contract for safety. Psychiatric interview is limited because of patient's current degree of psychiatric symptomatology. He has no acute physical complaints besides the possible foreign body as noted above. I am unable to obtain any meaningful past psychiatric, family, chemical dependency or social history from the patient at this time on account of his psychiatric condition. I have therefore reached out to patient's mother for further collateral as well as consent for medications. Spoke with patient's mother, Dyan Jones by phone. She reports that the patient had been doing very well on his Seroquel 100 mg 3 times daily and 400 mg at bedtime. She reports that he departed last Sunday night after taking his nighttime meds, saying that he was going to spend time with his girlfriend at her house. Ms. Jones did not hear from the patient on morning and was subsequently notified by her niece that the patient had been jailed on loitering charges after niece reportedly saw patient's name in the police blotter. Ms. Jones notes that she tried to get the patient his psychotropic medications while he was in the [facility], but they reportedly refused to accept them and provide them to the patient because they were "narcotics." Ms. Jones notes that the patient has no issues with medication adherence. She is willing to act as healthcare surrogate and provides consent for medications as detailed below. She requests a letter indicating that the patient has been hospitalized to provide to the court in relation to the loitering charge, and I have asked the counselor to assist her with this matter. Tobacco Use In Past 30 Days: No How Often Do You Have a Drink Containing Alcohol: Never Hospital Course: Patient was admitted to a locked, inpatient psychiatric unit. General medical consultation was obtained. Appropriate precautions were in place throughout patient's hospital stay. Patient was seen and examined on the unit by psychiatry and also visited by counselor. Psychotropic medications were adjusted. Patient had improvement in presenting psychiatric symptomatology during the course of his hospital stay. He was transferred to the medical psychiatric unit for management of elevated CK with IV fluids. CK trended downward and IV fluids were discontinued. There was no evidence of any suicidality or homicidality on the inpatient unit. Collateral information was obtained from the patient's mother. On the day of discharge: Patient seen and examined. Chart reviewed. Case discussed with nursing staff. No behavioral issues noted overnight. Case discussed with counselor. On my examination today , the patient is in good spirits. He is hopeful for discharge today. He denies any suicidal or homicidal ideation, intent or plan. I can elicit no depressive or hypomanic/manic symptoms. He denies any audiovisual hallucinations. I can elicit no delusional material. No side effects from medications. No physical complaints. Suicide and violence risk assessment on day of discharge both suggest lower imminent risk from mental illness. Patient has maximized benefit from this inpatient psychiatric hospital stay. He will be discharged today into mother's care with psychiatric follow-up as arranged by counselor. Patient is also to follow up with primary care. Patient to return to psychiatric emergency room for any concerning symptoms as part of a general safety plan. - Discharge Discharge Date: 01/23/18 - Discharge Diagnosis (1) Undifferentiated schizophrenia Diagnosis: Principal (Stabilized) Code(s): F20.3 - Undifferentiated schizophrenia Status: Acute (2) Intellectual disability Diagnosis: Secondary Code(s): F79 - Unspecified intellectual disabilities Status: Acute Discharge Disposition: Home - Discharge Instructions Discharge Diet: Regular Diet Activities You Can Perform: Weight Bearing As Tolerat - Discharge Time <= 30 minutes Mental Status Examination Appearance: Other (Fair grooming and hygiene) Consciousness: Alert Orientation: Person Motor Activity: Other (No hand tremor, no cogwheeling, no dystonia, no dyskinesia, no other motor abnormalities noted.) Speech: Unremarkable Language: Other (Limited language skills) Fund of Knowledge: Inadequate Attention and Concentration: Inadequate Memory: Impaired (Unable to assess but suspect remains impaired) Mood: Appropriate Affect: Euthymic (Childlike) Thought Process & Associations: Other (Somewhat slowed and concrete) Thought Content: Appropriate Hallucination Type: None Delusion Type: None Suicidal Ideation: No Suicidal Plan: No Suicidal Intention: No Homicidal Ideation: No Homicidal Plan: No Homicidal Intention: No Insight: Poor Judgment: Poor Discharge/Advance Care Plan - Results Vital Signs: Last Vital Signs Temp 98.6 F 01/23/18 06:00 Pulse 92 H 01/23/18 06:00 Resp 16 01/23/18 06:00 BP 117/69 01/23/18 06:00 Pulse Ox 98 01/23/18 06:00 Lab Results: Laboratory Results Triglycerides 58 mg/dL (42-150) 01/16/18 08:17 Cholesterol 114 mg/dL (120-200) L 01/16/18 08:17 LDL Cholesterol, Calc 59 mg/dL (0-99) 01/16/18 08:17 HDL Cholesterol 43.9 mg/dL (40.0-60.0) 01/16/18 08:17 TSH 1.670 uIU/mL (0.358-3.740) 01/15/18 18:35 Summary of Procedures: None done Imaging: ITS Impressions Pelvis X-Ray 01/16/18 00:00 CONCLUSION: Negative examination. Pending Results: None - Medications Number of antipsychotic medications at discharge: 1 - Discharge Care Plan Goals to Promote Your Health: * To prevent worsening of your condition and complications * To maintain your health at the optimal level Directions to Meet Your Goals: Take your medications as prescribed Follow your dietary instruction Follow activity as directed Keep your appointments as scheduled Take your immunizations and boosters as scheduled If your symptoms worsen call your PCP, if no PCP go to Urgent Care Center or Emergency Room For 18/12 questions related to your inpatient stay or results of tests pending at discharge, please contact Dr. Shine Pulido MD at Smoking is Dangerous to Your Health. Avoid second hand smoking
== END 2018-01-23 14:05 | disposition home or self-care (01) ==
LOC: NEDAMB 18:13 → NEDA 21:38 → H270 22:21 → H4EA 01-17 17:45
PROVIDERS: ADMIT Psychiatry & Neurology Psychiatry; ATTEND Psychiatry & Neurology Psychiatry